=== PATIENT | female | born 1960 | race Caucasian/White ===

== ENCOUNTER 2020-10-29 11:02 | Outpatient (REF) | payer OTHER, SELFPAY ==
[2020-10-29 14:05] LABS: MANUAL DIFF FLAG NO
[2020-10-29 14:18] LABS: Basophils Percent Auto 0.4 % (0-2); Eosinophils Absolute Auto 0.1 X10*3/uL (0.0-0.4); Eosinophils Percent Auto 1.1 % (0-4); Hematocrit 34.8 % (37-47); Hemoglobin 11.9 g/dl (12.0-16.0); Imm Gran Abs Auto 0.01 X10*3/uL (0.00-0.03); Imm Gran Pct Auto 0.2 % (0.0-0.4); Lymphocytes Absolute Auto 2.8 X10*3/uL (1.2-4.9); Mean Corpuscular HGB Conc 34.2 g/dl (31.0-35.0); Mean Corpuscular Hemoglobin 37.4 pg (27.0-33.0); Mean Corpuscular Volume 109.4 fL (80-98); Mean Platelet Volume 11.6 fL (9.4-12.3); Monocytes Absolute Auto 0.6 X10*3/uL (0.1-1.2); Monocytes Percent Auto 11.3 % (2-11); NRBC Pct Auto 0.4 /100WBC (0.0-0.2); Neutrophils Absolute Auto 2.1 X10*3/uL (2.0-8.3); Platelet Count 265 X10*3/uL (160-400); Red Blood Count 3.18 X10*6/uL (4.20-5.50); Red Cell Distribution Width 12.3 % (11.0-16.0); White Blood Count 5.6 X10*3/uL (4.8-10.8)
[2020-10-29 14:21] LABS: INTERNATIONAL NORM RATIO 1.1 (0.9-1.1); Prothrombin Time 13.6 SEC (10.8-13.0)
[2020-10-29 14:44] LABS: Alanine Aminotransferase 15 U/L (0-31); Alkaline Phosphatase 40 U/L (39-117); Aspartate Amino Transferase 32 U/L (5-31); Bilirubin Direct 0.2 mg/dL (0.0-0.5); Bilirubin Total 0.5 mg/dL (0.0-1.0); C Reactive Protein 0.14 mg/dL (< or = 0.50); Iron 67 mcg/dL (30-160); Percent Iron Saturation 20 % (15-50); Total Iron Binding Capacity 336 mcg/dL (228-428); Total Protein 6.5 g/dL (6.5-8.0); Unsaturated Iron Binding 269 ug/dL
[2020-10-29 15:06] LABS: Erythrocyte Sedimentation Rate 2 MM/HR (0-20)
[2020-10-29 15:08] LABS: Ferritin 287 ng/mL (10-250); TSH reflex Free T4 0.33 mIU/mL (0.32-4.0)
[2020-10-29 15:25] LABS: Folate > 20.0 ng/mL (> or = 4.0); Vitamin B12 < 146 pg/mL (200-900)
== END 2020-10-29 11:03 | disposition home or self-care (01) ==
LOC: HO.10HDL 11:02
PROVIDERS: Visit Provider Internal Medicine
DX: R19.7 Diarrhea, unspecified (principal); R63.4 Abnormal weight loss; A04.72 Enterocolitis due to Clostridium difficile, not specified as recurrent
CPT/HCPCS: 36415; 80076; 82607; 82728; 82746; 83540; 84443; 85025; 85610; 85652; 86140

== ENCOUNTER 2020-10-30 13:14 | Outpatient (REF) | payer OTHER, SELFPAY ==
[2020-10-30 14:59] LABS: CDIFF Ag Negative (Negative); CDIFF Internal ctrl Dots and bkg OK (V); CDiff Toxin Negative (Negative)
[2020-10-30 15:15] LABS: Leukocytes Stool Qualitative NEGATIVE (NEGATIVE)
== END 2020-10-30 13:15 | disposition home or self-care (01) ==
LOC: HO.LNP 13:14
PROVIDERS: Visit Provider Internal Medicine
DX: R19.7 Diarrhea, unspecified (principal); R63.4 Abnormal weight loss; A04.72 Enterocolitis due to Clostridium difficile, not specified as recurrent
CPT/HCPCS: 87324; 87449; 89055

== ENCOUNTER 2020-12-21 21:22 | Emergency (ER) | payer OTHER, SELFPAY | END 2020-12-21 21:48 | disposition left against medical advice (07) | PROVIDERS: Emergency Provider Emergency Medicine Emergency Medical Services; PCP Internal Medicine | DX: R51.9 Headache, unspecified (principal) ==

== ENCOUNTER 2021-02-17 07:41 | Day surgery (SDC) | payer OTHER, SELFPAY ==
[2020-11-12 14:23] VITALS: BMI 21.9
--- NOTE | 2020-11-13 14:08 | HO.ANESPROP2 ---
HPI - Anesthesia Eval Consult details Narrative: 60yo F for Upper Endoscopy and Colonoscopy Rescheduled d/t Echo and Carotid US pending. R/O residual PE. [facility] Past Medical History Medical History (Updated 11/12/20 @ 14:49 by Asia Lucas) Achalasia, esophageal Anxiety CAD (coronary artery disease) Depression Elevated cholesterol Hx of Hodgkin's disease Hx of non-ST elevation myocardial infarction (NSTEMI) Hx of opioid abuse Hx pulmonary embolism Hypothyroid IBS (irritable bowel syndrome) Low vitamin B12 level Surgical History Surgical History (Updated 11/12/20 @ 14:34 by Asia Lucas) History of arthroplasty of left hip History of esophagogastroduodenoscopy (EGD) Hx of cardiac catheterization Hx of foot surgery Hx of hemorrhoidectomy Hx of splenectomy Hx of umbilical hernia repair Social History Social History (Updated 11/12/20 @ 14:23 by Asia Lucas) Alcohol intake: current Alcohol intake frequency: 0-2 drinks per day Smoking Status: Current every day smoker Cigarettes Per Day: 5 Years Smoked: 40 Substance Use Type: Opiates Last Used Substance Other:: 2018 Meds Allergies Allergy/AdvReac Type Severity Reaction Status Date / Time bee stings Allergy Severe anaphylaxis Uncoded 11/12/20 13:55 nickel Allergy Intermediate rash Uncoded 11/12/20 13:56 Shellfish Allergy Intermediate HIVES Uncoded 11/12/20 13:55 Home Medications Medication Instructions Recorded Confirmed Type aspirin [Aspir-81] 81 mg PO DAILY 11/12/20 11/12/20 History cholecalciferol (vitamin D3) 25 mcg PO DAILY 11/12/20 11/12/20 History [Vitamin D3] fenofibrate 1 tab PO DAILY 11/12/20 11/12/20 History folic acid 0.8 mg PO DAILY 11/12/20 11/12/20 History melatonin 10 mg PO BEDTIME 11/12/20 11/12/20 History sertraline 50 mg PO DAILY 11/12/20 11/12/20 History levothyroxine [Tirosint] 1 cap PO QAM 11/13/20 11/13/20 History Exam Exam Date and Time: November 13, 2020 1408 Height,Weight and Vital Signs: Height 5 ft 2 in Weight 54.431 kg Narrative Narrative: Per cardiology: followed for atypical CP. 3 stress echo's all normal, Echos also normal with nml LVEF, no WMA, no valve abn (last March 2016); Cardiac cath 2010 that demonstrated mild diffuse disease but all <30% stenosis.
--- NOTE | 2020-12-06 13:59 | P.CONAN_ITS ---
HPI - Anesthesia Eval Consult details Narrative: 60yo F for Upper Endoscopy and Colonoscopy Cardiac cleared Case reviewed with Dr Owen. Cardiac clearance requested prior to elective endo procedure. [facility] Past Medical History Medical History (Updated 12/05/20 @ 15:39 by Asia Lucas) Achalasia, esophageal Anxiety CAD (coronary artery disease) Depression Elevated cholesterol Hx of Hodgkin's disease Hx of non-ST elevation myocardial infarction (NSTEMI) Hx of opioid abuse Hx pulmonary embolism Hypothyroid IBS (irritable bowel syndrome) Low vitamin B12 level Surgical History Surgical History (Updated 11/12/20 @ 14:34 by Asia Lucas) History of arthroplasty of left hip History of esophagogastroduodenoscopy (EGD) Hx of cardiac catheterization Hx of foot surgery Hx of hemorrhoidectomy Hx of splenectomy Hx of umbilical hernia repair Social History Social History (Updated 11/12/20 @ 14:23 by Asia Lucas) Alcohol intake: current Alcohol intake frequency: 0-2 drinks per day Smoking Status: Current every day smoker Cigarettes Per Day: 5 Years Smoked: 40 Substance Use Type: Opiates Last Used Substance Other:: 2018 Meds Allergies Allergy/AdvReac Type Severity Reaction Status Date / Time bee stings Allergy Severe anaphylaxis Uncoded 11/12/20 13:55 nickel Allergy Intermediate rash Uncoded 11/12/20 13:56 Shellfish Allergy Intermediate HIVES Uncoded 11/12/20 13:55 Home Medications Medication Instructions Recorded Confirmed Type aspirin [Aspir-81] 81 mg PO DAILY 11/12/20 11/12/20 History cholecalciferol (vitamin D3) 25 mcg PO DAILY 11/12/20 11/12/20 History [Vitamin D3] folic acid 0.8 mg PO DAILY 11/12/20 11/12/20 History melatonin 10 mg PO BEDTIME 11/12/20 11/12/20 History sertraline 50 mg PO DAILY 11/12/20 11/12/20 History levothyroxine [Tirosint] 1 cap PO QAM 11/13/20 11/13/20 History Exam Exam Date and Time: December 06, 2020 1359 Height,Weight and Vital Signs: Height 5 ft 2 in Weight 54.431 kg Pertinent Lab Results Pertinent Lab Results: Laboratory Tests 07/18/20 10/29/20 13:17 10:50 WBC 5.6 Hgb 11.9 L Hct 34.8 L Plt Count 265 Sodium 141 Potassium 3.7 Chloride 105 BUN 8 L Creatinine 0.75 Narrative Narrative: ECHO 12/05/2020: SR LV size is normal. LV wall thickness is normal. Overall LV sys function is low- normal with EF 45-55%; Gr 1 DD; Impaired relax; nml filling pressures; Mid to basal inferolateral mildly hypokinetic suspected LA size is normal RV sys functino is normal Trace AR Trace MR Trace TR RV sys pressure nml No pericardial effusion Aortic root is normal in size Lipomatous hypertrophy of the interatrial septum is present No significant change from 2016 ECHO EKG 09/2020: SR@80 slight right-precordial repol disturbance, normal variant Assessment and Plan Assessment Anesthesia Assessment: Chart Reviewed
--- NOTE | 2021-01-02 13:10 | HO.ANESPROP2 ---
HPI - Anesthesia Eval Consult details Narrative: 60yo F for Upper Endoscopy and Colonoscopy Case reviewed with Dr Owen. Cardiac clearance requested prior to elective endo procedure. Cardiac cleared. Referred for ?occluded carotid stent. Pt no-showed to Dr Duong at [facility] 12/30/20. Discharged from practice for no show. T/C to Dr Hughes - PCP. = 01/03/[address] Hughes. OK to proceed with colonoscopy. Referral for carotid was to re-establish care. No acute issue. Pt cancelled self. [facility] Past Medical History Medical History (Updated 12/05/20 @ 15:39 by Asia Lucas) Achalasia, esophageal Anxiety CAD (coronary artery disease) Depression Elevated cholesterol Hx of Hodgkin's disease Hx of non-ST elevation myocardial infarction (NSTEMI) Hx of opioid abuse Hx pulmonary embolism Hypothyroid IBS (irritable bowel syndrome) Low vitamin B12 level Surgical History Surgical History (Updated 11/12/20 @ 14:34 by Asia Lucas) History of arthroplasty of left hip History of esophagogastroduodenoscopy (EGD) Hx of cardiac catheterization Hx of foot surgery Hx of hemorrhoidectomy Hx of splenectomy Hx of umbilical hernia repair Social History Social History (Updated 11/12/20 @ 14:23 by Asia Lucas) Alcohol intake: current Alcohol intake frequency: 0-2 drinks per day Smoking Status: Current every day smoker Cigarettes Per Day: 5 Years Smoked: 40 Substance Use Type: Opiates Advance Directives: No Advance Directives Information Provided: No Meds Allergies Allergy/AdvReac Type Severity Reaction Status Date / Time bee stings Allergy Severe anaphylaxis Uncoded 11/12/20 13:55 nickel Allergy Intermediate rash Uncoded 11/12/20 13:56 Shellfish Allergy Intermediate HIVES Uncoded 11/12/20 13:55 Home Medications Medication Instructions Recorded Confirmed Type aspirin [Aspir-81] 81 mg PO DAILY 11/12/20 11/12/20 History cholecalciferol (vitamin D3) 25 mcg PO DAILY 11/12/20 11/12/20 History [Vitamin D3] folic acid 0.8 mg PO DAILY 11/12/20 11/12/20 History melatonin 10 mg PO BEDTIME 11/12/20 11/12/20 History sertraline 50 mg PO DAILY 11/12/20 11/12/20 History levothyroxine [Tirosint] 1 cap PO QAM 11/13/20 11/13/20 History Exam Exam Date and Time: January 02, 2021 1310 Height,Weight and Vital Signs: Height 5 ft 2 in Weight 54.431 kg Narrative Narrative: ECHO 12/05/2020: SR LV size is normal. LV wall thickness is normal. Overall LV sys function is low-normal with EF 45-55%; Gr 1 DD; Impaired relax; nml filling pressures; Mid to basal inferolateral mildly hypokinetic suspected LA size is normal RV sys functino is normal Trace AR Trace MR Trace TR RV sys pressure nml No pericardial effusion Aortic root is normal in size Lipomatous hypertrophy of the interatrial septum is present No significant change from 2016 ECHO EKG 09/2020: SR@80 slight right-precordial repol disturbance, normal variant
[2021-02-10 12:20] VITALS: BMI 21.0
--- NOTE | 2021-02-14 07:08 | HO.ANESPROP2 ---
Documented by User: Berenice Melgar 02/14/21 07:09 HPI - Anesthesia Eval Consult details Narrative: 60yo F for Upper Endoscopy and Colonoscopy Case reviewed with Dr Owen. Cardiac clearance requested prior to elective endo procedure. Cardiac cleared. Referred for ?occluded carotid stent. Pt no-showed to Dr Duong at [facility] 12/30/20. Discharged from practice for no show. T/C to Dr Hughes - PCP. = 01/03/[address] Hughes. OK to proceed with colonoscopy. Referral for carotid was to re-establish care. No acute issue. Pt cancelled self multiple times previously [facility] Past Medical History Medical History Achalasia, esophageal Anxiety CAD (coronary artery disease) Depression Elevated cholesterol Hx of Hodgkin's disease Hx of non-ST elevation myocardial infarction (NSTEMI) Hx of opioid abuse Hx pulmonary embolism Hypothyroid IBS (irritable bowel syndrome) Low vitamin B12 level Surgical History Surgical History History of arthroplasty of left hip History of esophagogastroduodenoscopy (EGD) Hx of cardiac catheterization Hx of foot surgery Hx of hemorrhoidectomy Hx of splenectomy Hx of umbilical hernia repair Social History Social History Alcohol intake: current Alcohol intake frequency: a few times a month Smoking Status: Current every day smoker Cigarettes Per Day: 5 Years Smoked: 40 Substance Use Type: Opiates Substance Use Type Other:: 6 months ago Advance Directives: No Advance Directives Information Provided: No Advance Directives on File: No Meds Allergies Allergy/AdvReac Type Severity Reaction Status Date / Time bee stings Allergy Severe anaphylaxis Uncoded 02/10/21 12:17 nickel Allergy Intermediate rash Uncoded 02/10/21 12:17 Shellfish Allergy Intermediate HIVES Uncoded 02/10/21 12:17 Home Medications Medication Instructions Recorded Confirmed Last Taken Type aspirin [Aspir-81] 81 mg PO DAILY 11/12/20 11/12/20 02/12/21 History cholecalciferol (vitamin D3) 25 mcg PO DAILY 11/12/20 02/10/21 Unknown History [Vitamin D3] folic acid 0.8 mg PO DAILY 11/12/20 02/10/21 Unknown History melatonin 10 mg PO BEDTIME 11/12/20 02/10/21 Unknown History sertraline 50 mg PO DAILY 11/12/20 11/12/20 Unknown History levothyroxine [Tirosint] 1 cap PO QAM 11/13/20 02/10/21 Unknown History Exam Exam Date and Time: February 14, 2021 0708 Height,Weight and Vital Signs: Height 5 ft 2 in Weight 52.163 kg Pertinent Lab Results Pertinent Lab Results: Laboratory Tests 07/18/20 10/29/20 13:17 10:50 WBC 5.6 Hgb 11.9 L Hct 34.8 L Plt Count 265 Sodium 141 Potassium 3.7 Chloride 105 BUN 8 L Creatinine 0.75 Narrative Narrative: ECHO 12/05/2020: SR LV size is normal. LV wall thickness is normal. Overall LV sys function is low-normal with EF 45-55%; Gr 1 DD; Impaired relax; nml filling pressures; Mid to basal inferolateral mildly hypokinetic suspected LA size is normal RV sys functino is normal Trace AR Trace MR Trace TR RV sys pressure nml No pericardial effusion Aortic root is normal in size Lipomatous hypertrophy of the interatrial septum is present No significant change from 2016 ECHO EKG 09/2020: SR@80 slight right-precordial repol disturbance, normal variant Assessment and Plan Assessment Anesthesia Assessment: Chart Reviewed Documented by User: Nathalia Kelsey 02/17/21 09:20 [facility] Past Medical History Medical History Achalasia, esophageal Anxiety CAD (coronary artery disease) Depression Elevated cholesterol Hx of Hodgkin's disease Hx of non-ST elevation myocardial infarction (NSTEMI) Hx of opioid abuse Hx pulmonary embolism Hypothyroid IBS (irritable bowel syndrome) Low vitamin B12 level Surgical History Surgical History History of arthroplasty of left hip History of esophagogastroduodenoscopy (EGD) Hx of cardiac catheterization Hx of foot surgery Hx of hemorrhoidectomy Hx of splenectomy Hx of umbilical hernia repair Social History Social History Alcohol intake: current Alcohol intake frequency: a few times a month Smoking Status: Current every day smoker Cigarettes Per Day: 5 Years Smoked: 40 Substance Use Type: Opiates Substance Use Type Other:: 6 months ago Advance Directives: No Advance Directives Information Provided: No Advance Directives on File: No Meds Allergies Allergy/AdvReac Type Severity Reaction Status Date / Time bee stings Allergy Severe anaphylaxis Uncoded 02/10/21 12:17 nickel Allergy Intermediate rash Uncoded 02/10/21 12:17 Shellfish Allergy Intermediate HIVES Uncoded 02/10/21 12:17 Home Medications Medication Instructions Recorded Confirmed Last Taken Type aspirin [Aspir-81] 81 mg PO DAILY 11/12/20 11/12/20 02/12/21 History cholecalciferol (vitamin D3) 25 mcg PO DAILY 11/12/20 02/10/21 Unknown History [Vitamin D3] folic acid 0.8 mg PO DAILY 11/12/20 02/10/21 Unknown History melatonin 10 mg PO BEDTIME 11/12/20 02/10/21 Unknown History sertraline 50 mg PO DAILY 11/12/20 11/12/20 Unknown History levothyroxine [Tirosint] 1 cap PO QAM 11/13/20 02/10/21 Unknown History Exam Airway Mallampati Class: II TM Dist: >3cm Neck ROM: Full Heart: RRR Lungs: CTA Assessment and Plan Assessment Anesthesia Assessment: Anesthesia Plan Discussed and Chart Reviewed Final Anesthetic Review NPO: Yes ASA Class: III Final Preanesthetic Review: Meds/Allgs Chart Reviewed, Consent Obtained/Reviewed and Anes Risks/Benef Reviewed Patient Risk: Intermediate Procedure Risk: Intermediate Anesthetic Plan Anesthetic Plan: MAC: Disposition: Standard PACU
[2021-02-17 08:27] VITALS: BP 143/75; PULSE 84; RESP 16; TEMP 36.3; O2SAT 95
[2021-02-17] MEDS: Lactated Ringers 1,000 ML 100 ML IVCONT (08:37)
[2021-02-17 10:52] VITALS: BP 119/57; PULSE 72; RESP 12; TEMP 36.4; O2SAT 100
--- NOTE | 2021-02-17 10:57 | PM.OP ---
Brief Operative Note Date of Service: 02/17/21 Pre-op diagnosis: Diarrhea, Anorexia, Weight loss Post-op diagnosis: other (Hiatal hernia, R/O celiac disease, R/O microscopic colitis) Procedure: EGD with biopsies, Colonoscopy to the cecum with biopsies Surgeon: Guido Cain Anesthesia: MAC Estimated blood loss (mL): 5.0 Pathology: other (A. Descending duodenum B. Gastric antrum C. EG Junction at 36cm D. Ascending colon E. Descending colon) Condition: stable Disposition: other
[2021-02-17 11:07] VITALS: BP 133/66; PULSE 71; RESP 20; TEMP 36.4; O2SAT 98
--- NOTE | 2021-02-17 11:28 | OP_ITS ---
SURGEON: Guido Cain MD INDICATIONS: The patient presents for evaluation of diarrhea, anorexia, and weight loss. Full consent has been obtained from her for both procedures, including risks of bleeding and perforation. PREOPERATIVE DIAGNOSIS: POSTOPERATIVE DIAGNOSIS: PROCEDURE PERFORMED: Esophagogastroduodenoscopy with biopsies, and colonoscopy to cecum with biopsies. ESTIMATED BLOOD LOSS: COMPLICATIONS: ANESTHESIA: Monitored anesthesia care. ASSISTANTS: SPECIMENS: PREOPERATIVE DIAGNOSES: Anorexia, diarrhea, and weight loss. POSTOPERATIVE DIAGNOSES: Anorexia, diarrhea, and weight loss, rule out celiac disease, gastritis, hiatal hernia, rule out microscopic colitis, diverticulosis, and internal hemorrhoids. DESCRIPTION OF PROCEDURE: The patient was placed in the left lateral decubitus position. The Olympus video gastroscope was passed in the posterior oropharynx and upper esophagus under direct vision. The scope was passed slowly into the distal esophagus. The gastroesophageal junction appeared at 36 cm. There was some minimal irregularity, but no evidence of any esophagitis nor any definitive evidence of Carney's mucosa. The scope entered into the stomach. There was a small hiatal hernia. The scope was advanced to pylorus and the duodenum was cannulated to the descending portion. The duodenum including the bulb appeared normal without mass or ulceration. Biopsies were obtained from the second and third portions of duodenum. The scope was withdrawn back into the stomach. The gastric antrum had some mild areas of erythema and edema, but no erosions or ulceration. There was good peristalsis. Biopsies were obtained from the gastric antrum. The scope was retroflexed visualizing the proximal stomach carefully, which appeared normal, without any sign of mass or ulceration. Scope was straightened out and withdrawn back into the esophagus. Biopsies were obtained at the EG junction at 36 cm. Proximal to this, the esophageal mucosa appeared normal. The scope was withdrawn from the patient. She was turned around for colonoscopy. The digital rectal exam revealed no abnormalities. The Olympus video pediatric colonoscope was entered into the rectum and advanced easily to the cecum. Once in the cecum, I did identify normal-appearing cecal pouch with appendiceal orifice and a normal-appearing ileocecal valve. The entire cecum appeared normal. There was transillumination of light deep in the right lower quadrant. The scope was then slowly withdrawn assessing all mucosal surfaces carefully. Preparation was excellent. I did not visualize any sign of polyps, colitis, nor angiodysplasia. Random biopsies were obtained in the ascending and descending colon. There was a mild amount of sigmoid diverticulosis. In the rectum, scope was retroflexed visualizing small internal hemorrhoids, but no other pathology. The rectal mucosa appeared normal. The scope was straightened out and withdrawn from the patient. She tolerated both procedures well and was returned to recovery area in stable condition. IMPRESSION: 1. Hiatal hernia. 2. Gastritis. 3. Rule out celiac disease. 4. Rule out microscopic colitis. 5. Diverticulosis. 6. Internal hemorrhoids. PLAN: The results of the biopsies will be checked. She was advised to resume her Xarelto and aspirin tomorrow. She will continue her Imodium on a p.r.n. basis. I do feel part of her GI issues could be in relation to her alcohol use. She was advised to see me again within 2 months for a followup visit. She will continue her with her B12 shots for the previously documented B12 deficiency. MD JOURDAN Farley/NASIMA / [phone]
== END 2021-02-17 11:46 | disposition home or self-care (01) ==
PROVIDERS: PCP Internal Medicine; Visit Provider Internal Medicine
PROC: (CPT 45380; principal; 2021-02-17 09:10)
DX: R19.7 Diarrhea, unspecified (principal); K57.30 Diverticulosis of large intestine without perforation or abscess without bleeding; K64.8 Other hemorrhoids; K58.9 Irritable bowel syndrome, unspecified; R63.4 Abnormal weight loss; K29.50 Unspecified chronic gastritis without bleeding; K44.9 Diaphragmatic hernia without obstruction or gangrene; K22.0 Achalasia of cardia; E53.8 Deficiency of other specified B group vitamins; I25.2 Old myocardial infarction; F11.20 Opioid dependence, uncomplicated; F32.9 Major depressive disorder, single episode, unspecified; F17.210 Nicotine dependence, cigarettes, uncomplicated; Z79.02 Long term (current) use of antithrombotics/antiplatelets; Z79.82 Long term (current) use of aspirin; Z79.899 Other long term (current) drug therapy; Z86.711 Personal history of pulmonary embolism
CPT/HCPCS: 45380; 43239; 88305; 88342; J2250

== ENCOUNTER 2021-03-12 14:08 | Outpatient (REF) | payer OTHER, SELFPAY ==
[2021-03-12 14:42] LABS: MANUAL DIFF FLAG NO
[2021-03-12 14:46] LABS: Basophils Percent Auto 0.6 % (0-2); Eosinophils Absolute Auto 0.1 X10*3/uL (0.0-0.4); Eosinophils Percent Auto 1.2 % (0-4); Hematocrit 35.7 % (37-47); Imm Gran Abs Auto 0.03 X10*3/uL (0.00-0.03); Imm Gran Pct Auto 0.6 % (0.0-0.4); Lymphocytes Absolute Auto 2.3 X10*3/uL (1.2-4.9); Lymphocytes Percent Auto 45.2 % (20-40); Mean Corpuscular HGB Conc 33.6 g/dl (31.0-35.0); Mean Corpuscular Hemoglobin 36.8 pg (27.0-33.0); Mean Corpuscular Volume 109.5 fL (80-98); Monocytes Absolute Auto 0.7 X10*3/uL (0.1-1.2); Monocytes Percent Auto 12.8 % (2-11); Neutrophils Percent Auto 39.6 % (45-73); Platelet Count 302 X10*3/uL (160-400); Red Blood Count 3.26 X10*6/uL (4.20-5.50); White Blood Count 5.1 X10*3/uL (4.8-10.8)
[2021-03-12 15:03] LABS: Alanine Aminotransferase 47 U/L (0-31); Albumin Level 4.4 g/dL (3.5-5.0); Alkaline Phosphatase 62 U/L (39-117); Anion Gap 15 (12-20); Aspartate Amino Transferase 44 U/L (5-31); Bilirubin Direct 0.2 mg/dL (0.0-0.5); Bilirubin Total 0.5 mg/dL (0.0-1.0); Blood Urea Nitrogen 13 mg/dL (9-16); Calcium 9.2 mg/dL (8.4-10.2); Carbon Dioxide 25 mmol/L (22-29); Chloride 106 mmol/L (96-108); Estimated Glomerular Filt Rate > 60; Glucose Random 87 mg/dL (60-115); Potassium 4.2 mmol/L (3.3-5.1); Sodium 142 mmol/L (135-145)
[2021-03-13 11:32] LABS: Immunoglobulin A 181 mg/dL (47-310)
[2021-03-13 13:12] LABS: Transglutaminase Ab IgG 1 U/mL; Transglutaminase IgA 1 U/mL
[2021-03-14 00:21] LABS: Gliadin Deamidated IgA Ab 3 Units; Gliadin Deamidated IgG Ab 1 Units
[2021-03-18 13:22] LABS: Endomysial IgA Antibody Negative (Negative)
== END 2021-03-12 14:09 | disposition home or self-care (01) ==
LOC: HO.LAB 14:08
PROVIDERS: PCP Internal Medicine; Visit Provider Internal Medicine
DX: R19.7 Diarrhea, unspecified (principal); R63.4 Abnormal weight loss
CPT/HCPCS: 36415; 80053; 80076; 82248; 82784; 83516; 85025; 86255; 86256

== ENCOUNTER 2021-11-10 14:42 | Outpatient (REF) | payer OTHER, SELFPAY ==
[2021-11-10 15:35] LABS: COVID-19 Test Negative (Negative); IDNOW Serial# 16C4AD1C
== END 2021-11-10 14:43 | disposition home or self-care (01) ==
LOC: HO.LAB 14:42
PROVIDERS: Visit Provider Internal Medicine
DX: Z20.822 Contact with and (suspected) exposure to COVID-19 (principal)
CPT/HCPCS: 36415; 87635; C9803

== ENCOUNTER 2021-12-04 19:09 | Inpatient (IN) | payer OTHER, SELFPAY ==
--- NOTE | 2021-12-04 | ECG_ITS ---
Test Reason : TACHY Blood Pressure : / mmHG Vent. Rate : 204 BPM Atrial Rate : 000 BPM P-R Int : 000 ms QRS Dur : 082 ms QT Int : 216 ms P-R-T Axes : 000 057 259 degrees QTc Int : 398 ms Supraventricular tachycardia Possible Anterior infarct , age undetermined ST & T wave abnormality, consider inferior ischemia Abnormal ECG When compared with ECG of 30-MAR-2018 11:58, Supraventricular tachycardia has replaced Normal sinus rhythm Referred By: Generic ED Physician Electronically Signed By:KYM MEDINA MD
--- NOTE | ~2021-12-04 | US_ITS ---
EXAMINATION: US ABDOMEN LIMITED CLINICAL INFORMATION: Transaminitis. COMPARISON: CT abdomen and pelvis 07/19/2020. MRI abdomen 07/18/2018. Ultrasound abdomen complete 06/21/2018. TECHNIQUE: Real-time imaging of the right upper quadrant abdominal viscera. FINDINGS: PANCREAS: The pancreatic head and body appear normal. The tail is obscured by bowel gas. LIVER: The liver is normal in size. The liver contour is normal. Increased hepatic echogenicity is nonspecific. No focal hepatic lesion. There is no intrahepatic biliary duct dilatation seen. GALLBLADDER: Normal. The gallbladder is physiologically distended without evidence of stones, sludge, polyps, wall thickening or pericholecystic fluid. COMMON BILE DUCT: Normal in caliber measuring 0.2 cm in diameter. RIGHT KIDNEY: Normal. No hydronephrosis. No renal calculi or focal parenchymal lesions. The kidney measures 11.7 cm in maximum dimension. FREE FLUID: None. US/US abdomen limited IMPRESSION: Increased hepatic echogenicity is nonspecific but most likely fatty infiltration. No discrete mass or biliary ductal dilatation.
--- NOTE | ~2021-12-04 | XR_ITS ---
EXAMINATION: PORTABLE CHEST 1 VIEW CLINICAL INFORMATION: cp . COMPARISON: 03/17/2018. TECHNIQUE: Portable frontal view of the chest was obtained. FINDINGS: The lungs are well expanded. No focal infiltrate, effusion, edema, or pneumothorax. Cardiac and mediastinal silhouettes are within normal limits for technique. No acute bony abnormality seen. XR/XR chest 1V IMPRESSION: No evidence of acute disease.
[2021-12-04 19:31] VITALS: BP 111/71; PULSE 204; RESP 20; TEMP 36.7; O2SAT 96; BMI 20.3
--- NOTE | 2021-12-04 19:52 | ED_ITS ---
HPI - Arrhythmia/Palpitations General Chief Complaint: Chest Pain Stated Complaint: hip bp, dizziness Time Seen by Provider: 12/04/21 19:37 Source: patient Mode of arrival: ambulatory Limitations: no limitations History of Present Illness HPI narrative: Patient is 61 years old with history of alcohol abuse drinks al cohol every day no history of palpitation the past noticed heart beating fast with dizziness since 15:00 felt like she was going to pass out never had similar history in the past on arrival patient heart rate was 204 beats per minute no fever no chills patient had an alcoholic drink earlier today Related Data Home Medications Medication Instructions Recorded Confirmed aspirin 81 mg tablet,delayed 81 mg PO DAILY 11/12/20 11/12/20 release cholecalciferol (vitamin D3) 25 25 mcg PO DAILY 11/12/20 02/10/21 mcg (1,000 unit) capsule (Vitamin D3) folic acid 0.8 mg capsule 0.8 mg PO DAILY 11/12/20 02/10/21 melatonin 5 mg tablet 10 mg PO BEDTIME 11/12/20 02/10/21 Previous Rx's Medication Instructions Recorded fenofibrate 160 mg tablet 160 mg PO DAILY #30 tab 11/23/20 enoxaparin 60 mg/0.6 mL 60 mg (0.6 mL) SUBCUT Q12H 7 Days 12/09/20 subcutaneous syringe (Lovenox) #8.4 ml bupropion HCl 150 mg 24 hr tablet, 150 mg PO QAM #90 tab 04/24/21 extended release rivaroxaban 20 mg tablet (Xarelto) 20 mg PO QPM #30 tab 04/27/21 sertraline 50 mg tablet 50 mg PO DAILY #30 tab 09/03/21 levothyroxine 75 mcg capsule 75 mcg PO QAM 30 Days #30 cap 11/11/21 (Tirosint) trazodone 100 mg tablet 100 - 200 mg PO BEDTIME #60 tab 11/11/21 magnesium oxide 400 mg PO DAILY #30 tab 12/04/21 Allergies Allergy/AdvReac Type Severity Reaction Status Date / Time bee stings Allergy Severe anaphylaxis Uncoded 12/04/21 19:26 nickel Allergy Intermediate rash Uncoded 12/04/21 19:26 Shellfish Allergy Intermediate HIVES Uncoded 12/04/21 19:26 Review of Systems Review of Systems: Yes all other systems are reviewed and are negative PMFSH Past Medical History Medical History Achalasia, esophageal Anxiety CAD (coronary artery disease) Depression Elevated cholesterol Hx of Hodgkin's disease Hx of non-ST elevation myocardial infarction (NSTEMI) Hx of opioid abuse Hx pulmonary embolism Hypothyroid IBS (irritable bowel syndrome) Low vitamin B12 level Surgical History History of arthroplasty of left hip History of esophagogastroduodenoscopy (EGD) Hx of cardiac catheterization Hx of foot surgery Hx of hemorrhoidectomy Hx of splenectomy Hx of umbilical hernia repair Social History Social History Alcohol intake: current Alcohol intake frequency: a few times a month Cigarettes Per Day: 5 Years Smoked: 40 Substance Use Type: Opiates Advance Directives: No Advance Directives Information Provided: Yes Patient : No Physical Exam Vital Signs: Vital Signs: Last Vital Signs Temp 98.1 F 12/04/21 19:31 Pulse 86 12/04/21 21:50 Resp 12 12/04/21 21:50 BP 130/80 12/04/21 21:50 Pulse Ox 97 12/04/21 21:50 BMI result Body Mass Index 20.3 Appearance: Alert. Oriented X3. Mild distress etoh+ Eyes: No pallor icterus ENT: Pharynx normal. Oral Mucosa moist Neck: Normal inspection. Neck supple. CVS: Tachycardia with heart rate 200 beats per minute no murmur gallop Pulses normal. Respiratory: No respiratory distress. Equal air entry bilateral, no wheezing/rales/rhonchi Abdomen: Soft and nontender. Bowel sounds are present, no mass palpable, Skin: Skin warm and dry. Normal skin color. Normal skin turgor. Extremities: No lower extremity edema. No calf tenderness Neuro: Oriented X 3. No motor deficit. No sensory deficit.No cerebellar signs , cranial nerves II-XII intact Course Reevaluation(s) Reevaluation #1: Patient received 6 mg of Adenocard which broke her SVT normal sinus rhythm at this time patient feeling much better will check her labs including TSH magnesium and alcohol level likely she has alcoholic cardiomyopathy Time: 19:45 MDM - Arrhythmia/Palpitations MDM Narrative Medical decision making narrative: Patient with SVT with alcohol abuse likely has dilated cardiomyopathy as a cause for SVT responded to Adenocard. Patient has low magnesium 1.5 will give magnesium replacement slightly elevated troponin from increased demand because of tachycardia will repeat troponin planning to discharge pt home advised not to drink alcohol will sign out to Dr. Willoughby will recheck delta troponin Lab Data Attestation: I reviewed the patient's lab results. Result diagrams: 12/04/21 19:52 12/04/21 19:52 Labs: Lab Results 12/04/21 12/04/21 12/04/21 Range/Units 19:52 19:52 19:52 WBC 9.7 (4.8-10.8) X10*3/uL RBC 3.57 L (4.20-5.50) X10*6/uL Hgb 14.0 (12.0-16.0) g/dl Hct 39.4 (37.0-47.0) % MCV 110.4 H (80.0-98.0) fL MCH 39.2 H (27.0-33.0) pg MCHC 35.5 H (31.0-35.0) g/dl RDW 14.6 (11.0-16.0) % Plt Count 237 (160-400) X10*3/uL MPV 10.9 (9.4-12.3) fL Immature Gran % (Auto) 0.5 H (0.0-0.4) % Neut % (Auto) 53.5 (45-73) % Lymph % (Auto) 29.4 (20-40) % [place] % (Auto) 16.1 H (2-11) % Eos % (Auto) 0.2 (0-4) % Baso % (Auto) 0.3 (0-2) % Lymph # (Auto) 2.9 (1.2-4.9) X10*3/uL [place] # (Auto) 1.6 H (0.1-1.2) X10*3/uL Eos # (Auto) 0.0 (0.0-0.4) X10*3/uL Baso # (Auto) 0.0 (0.0-0.2) X10*3/uL Abs Immat Gran (auto) 0.05 H (0.00-0.03) X10*3/uL Absolute Neuts (auto) 5.2 (2.0-8.3) x10*3/uL Absolute Nucleated RBC 0.060 H (0.0-0.012) X10*3/uL Nucleated RBC % (auto) 0.6 H (0.0-0.2) /100WBC Smear Tech's Comments VERIFIED PT 9.4 L (9.9-13.0) SEC INR 0.8 L (0.9-1.1) APTT 32.7 (24.1-38.0) SEC Sodium 141 (135-145) mmol/L Potassium 4.3 (3.3-5.1) mmol/L Chloride 102 (96-108) mmol/L Carbon Dioxide 17 L (22-29) mmol/L Anion Gap 26 H (12-20) BUN 19 H (9-16) mg/dL Creatinine 0.80 (0.5-1.4) mg/dL Estim Creat Clear Calc 61.5 Estimated GFR > 60 Random Glucose 117 H (60-115) mg/dL Calcium 9.2 (8.4-10.2) mg/dL Magnesium (1.6-2.6) mg/dL Total Bilirubin 0.4 (0.0-1.0) mg/dL AST 173 H (5-31) U/L ALT 107 H (0-31) U/L Alkaline Phosphatase 80 D (39-117) U/L Troponin I High Sens (<3.5-17.0) ng/L B-Natriuretic Peptide (<100) pg/mL Total Protein 6.9 (6.5-8.0) g/dL Albumin 4.1 (3.5-5.0) g/dL TSH 2.13 (0.32-4.0) uIU/mL Ethyl Alcohol mg/dL COVID-19 ([facility]) (Negative) COVID-19 Clin Com 12/04/21 12/04/21 12/04/21 Range/Units 19:52 19:52 19:53 WBC (4.8-10.8) X10*3/uL RBC (4.20-5.50) X10*6/uL Hgb (12.0-16.0) g/dl Hct (37.0-47.0) % MCV (80.0-98.0) fL MCH (27.0-33.0) pg MCHC (31.0-35.0) g/dl RDW (11.0-16.0) % Plt Count (160-400) X10*3/uL MPV (9.4-12.3) fL Immature Gran % (Auto) (0.0-0.4) % Neut % (Auto) (45-73) % Lymph % (Auto) (20-40) % [place] % (Auto) (2-11) % Eos % (Auto) (0-4) % Baso % (Auto) (0-2) % Lymph # (Auto) (1.2-4.9) X10*3/uL [place] # (Auto) (0.1-1.2) X10*3/uL Eos # (Auto) (0.0-0.4) X10*3/uL Baso # (Auto) (0.0-0.2) X10*3/uL Abs Immat Gran (auto) (0.00-0.03) X10*3/uL Absolute Neuts (auto) (2.0-8.3) x10*3/uL Absolute Nucleated RBC (0.0-0.012) X10*3/uL Nucleated RBC % (auto) (0.0-0.2) /100WBC Smear Tech's Comments PT (9.9-13.0) SEC INR (0.9-1.1) APTT (24.1-38.0) SEC Sodium (135-145) mmol/L Potassium (3.3-5.1) mmol/L Chloride (96-108) mmol/L Carbon Dioxide (22-29) mmol/L Anion Gap (12-20) BUN (9-16) mg/dL Creatinine (0.5-1.4) mg/dL Estim Creat Clear Calc Estimated GFR Random Glucose (60-115) mg/dL Calcium (8.4-10.2) mg/dL Magnesium 1.5 L (1.6-2.6) mg/dL Total Bilirubin (0.0-1.0) mg/dL AST (5-31) U/L ALT (0-31) U/L Alkaline Phosphatase (39-117) U/L Troponin I High Sens (<3.5-17.0) ng/L B-Natriuretic Peptide 43 (<100) pg/mL Total Protein (6.5-8.0) g/dL Albumin (3.5-5.0) g/dL TSH (0.32-4.0) uIU/mL Ethyl Alcohol mg/dL COVID-19 (T[facility]) Negative (Negative) COVID-19 Clin Com See Note 12/04/21 12/04/21 Range/Units 19:53 19:54 WBC (4.8-10.8) X10*3/uL RBC (4.20-5.50) X10*6/uL Hgb (12.0-16.0) g/dl Hct (37.0-47.0) % MCV (80.0-98.0) fL MCH (27.0-33.0) pg MCHC (31.0-35.0) g/dl RDW (11.0-16.0) % Plt Count (160-400) X10*3/uL MPV (9.4-12.3) fL Immature Gran % (Auto) (0.0-0.4) % Neut % (Auto) (45-73) % Lymph % (Auto) (20-40) % [place] % (Auto) (2-11) % Eos % (Auto) (0-4) % Baso % (Auto) (0-2) % Lymph # (Auto) (1.2-4.9) X10*3/uL [place] # (Auto) (0.1-1.2) X10*3/uL Eos # (Auto) (0.0-0.4) X10*3/uL Baso # (Auto) (0.0-0.2) X10*3/uL Abs Immat Gran (auto) (0.00-0.03) X10*3/uL Absolute Neuts (auto) (2.0-8.3) x10*3/uL Absolute Nucleated RBC (0.0-0.012) X10*3/uL Nucleated RBC % (auto) (0.0-0.2) /100WBC Smear Tech's Comments PT (9.9-13.0) SEC INR (0.9-1.1) APTT (24.1-38.0) SEC Sodium (135-145) mmol/L Potassium (3.3-5.1) mmol/L Chloride (96-108) mmol/L Carbon Dioxide (22-29) mmol/L Anion Gap (12-20) BUN (9-16) mg/dL Creatinine (0.5-1.4) mg/dL Estim Creat Clear Calc Estimated GFR Random Glucose (60-115) mg/dL Calcium (8.4-10.2) mg/dL Magnesium (1.6-2.6) mg/dL Total Bilirubin (0.0-1.0) mg/dL AST (5-31) U/L ALT (0-31) U/L Alkaline Phosphatase (39-117) U/L Troponin I High Sens 57.7 H* (<3.5-17.0) ng/L B-Natriuretic Peptide (<100) pg/mL Total Protein (6.5-8.0) g/dL Albumin (3.5-5.0) g/dL TSH (0.32-4.0) uIU/mL Ethyl Alcohol 72 mg/dL COVID-19 ([facility]) (Negative) COVID-19 Clin Com ECG Data Attestation: I personally reviewed and interpreted this ECG as follows: Interpretation: Narrow complex supraventricular tachycardia with heart rate of 204 beats per minute no acute ischemic changes impression SVT Discharge Plan Discharge Clinical Impression: Paroxysmal SVT (supraventricular tachycardia), Alcohol abuse, Hypomagnesemia Patient Disposition: Home, Self-Care Instructions: Supraventricular Tachycardia (ED), Abuse of Alcohol (ED), Hypomagnesemia (ED) Additional Instructions: stop Alcohol use Follow-up with special service officer for further evaluation Magnesium tablets as advised Prescriptions: New magnesium oxide 400 mg magnesium tablet 400 mg PO DAILY Qty: 30 RF: 0 No Action fenofibrate 160 mg tablet 160 mg PO DAILY Qty: 30 RF: 3 enoxaparin [Lovenox] 60 mg/0.6 mL syringe 60 mg subcut Q12H 7 Days Qty: 8.4 RF: 0 bupropion HCl 150 mg tablet extended release 24 hr 150 mg PO QAM Qty: 90 RF: 0 rivaroxaban [Xarelto] 20 mg tablet 20 mg PO QPM Qty: 30 RF: 0 sertraline 50 mg tablet 50 mg PO DAILY Qty: 30 RF: 2 trazodone 100 mg tablet 100 - 200 mg PO BEDTIME Qty: 60 RF: 0 levothyroxine [Tirosint] 75 mcg capsule 75 mcg PO QAM 30 Days Qty: 30 RF: 3 melatonin 5 mg Tablet 10 mg PO BEDTIME RF: 0 aspirin [Aspir-81] 81 mg Tablet,Delayed Release (Dr/Ec) 81 mg PO DAILY RF: 0 cholecalciferol (vitamin D3) [Vitamin D3] 25 mcg (1,000 unit) Capsule 25 mcg PO DAILY RF: 0 folic acid 0.8 mg Capsule 0.8 mg PO DAILY RF: 0 Referrals: Kishore Garner MD [Physician] - 2 weeks
[2021-12-04 19:59] VITALS: BP 137/73; PULSE 105; RESP 19; O2SAT 97
[2021-12-04] MEDS: Adenosine 6 MG/2 ML VIAL IVPUSH (20:00)
[2021-12-04] MEDS: 0.9 % Sodium Chloride 1,000 ML 999 ML IV (20:01)
--- NOTE | 2021-12-04 20:01 | PC.NURSE ---
adenosine given with karly de la o at bedside at 194 with continuous ekg being obtained. pt converted to ST 105 from SVT 205 pt reports feeling better, states it felt like my heart was going to explode. pt denies cp, sob, weakness, granado at this time. stretcher low locked, rails raised, call gomes within reach. awaiting lab results and dispo.
[2021-12-04 20:05] LABS: Basophils Percent Auto 0.3 % (0-2); Eosinophils Percent Auto 0.2 % (0-4); Hematocrit 39.4 % (37.0-47.0); Imm Gran Abs Auto 0.05 X10*3/uL (0.00-0.03); Imm Gran Pct Auto 0.5 % (0.0-0.4); Lymphocytes Absolute Auto 2.9 X10*3/uL (1.2-4.9); Lymphocytes Percent Auto 29.4 % (20-40); MANUAL DIFF FLAG SCAN; Mean Corpuscular HGB Conc 35.5 g/dl (31.0-35.0); Mean Corpuscular Hemoglobin 39.2 pg (27.0-33.0); Mean Platelet Volume 10.9 fL (9.4-12.3); Monocytes Absolute Auto 1.6 X10*3/uL (0.1-1.2); Monocytes Percent Auto 16.1 % (2-11); NRBC Pct Auto 0.6 /100WBC (0.0-0.2); Neutrophils Absolute Auto 5.2 x10*3/uL (2.0-8.3); Neutrophils Percent Auto 53.5 % (45-73); Platelet Count 237 X10*3/uL (160-400); Red Blood Count 3.57 X10*6/uL (4.20-5.50); Red Cell Distribution Width 14.6 % (11.0-16.0); SCAN SMEAR FLAG 1; White Blood Count 9.7 X10*3/uL (4.8-10.8)
[2021-12-04 20:17] LABS: Ethanol 72 mg/dL
[2021-12-04 20:19] LABS: Mean Corpuscular Volume 110.4 fL (80.0-98.0)
[2021-12-04 20:21] LABS: INTERNATIONAL NORM RATIO 0.8 (0.9-1.1); Prothrombin Time 9.4 SEC (9.9-13.0)
[2021-12-04 20:24] LABS: Partial Thromboplastin Time 32.7 SEC (24.1-38.0)
[2021-12-04 20:25] LABS: B Type Natriuretic Peptide 43 pg/mL (<100); Magnesium 1.5 mg/dL (1.6-2.6)
[2021-12-04 20:26] LABS: COVID-19 Test Negative (Negative)
[2021-12-04 20:29] LABS: Troponin-I High Sensitivity 57.7 ng/L (<3.5-17.0)
[2021-12-04 20:29] LABS: Alanine Aminotransferase 107 U/L (0-31); Albumin Level 4.1 g/dL (3.5-5.0); Alkaline Phosphatase 80 U/L (39-117); Anion Gap 26 (12-20); Aspartate Amino Transferase 173 U/L (5-31); Bilirubin Total 0.4 mg/dL (0.0-1.0); Blood Urea Nitrogen 19 mg/dL (9-16); Calcium 9.2 mg/dL (8.4-10.2); Carbon Dioxide 17 mmol/L (22-29); Chloride 102 mmol/L (96-108); Creatinine Clr Calc Pharmacy 61.5; Estimated Glomerular Filt Rate > 60; Glucose Random 117 mg/dL (60-115); Potassium 4.3 mmol/L (3.3-5.1); Sodium 141 mmol/L (135-145); Total Protein 6.9 g/dL (6.5-8.0)
[2021-12-04 20:42] LABS: SLIDE REVIEW VERIFIED
[2021-12-04 20:48] LABS: Thyroid Stimulating Hormone 2.13 uIU/mL (0.32-4.0)
--- NOTE | 2021-12-04 21:47 | ECG_ITS ---
Test Reason : SVT Blood Pressure : / mmHG Vent. Rate : 087 BPM Atrial Rate : 087 BPM P-R Int : 132 ms QRS Dur : 094 ms QT Int : 386 ms P-R-T Axes : 044 045 036 degrees QTc Int : 464 ms Normal sinus rhythm Cannot rule out Anterior infarct (cited on or before 04-DEC-2021) Abnormal ECG When compared with ECG of 04-DEC-2021 19:31, Vent. rate has decreased BY 117 BPM Normal sinus rhythm has replaced Supraventricular tachycardia Referred By: Tre Yang Electronically Signed By:KYM MEDINA MD
[2021-12-04 21:50] VITALS: BP 130/80; PULSE 86; RESP 12; O2SAT 97
[2021-12-04] MEDS: Magnesium Sulfate/H2O 2 GM/50 ML PIGGYBACK IV (21:52)
[2021-12-04 22:28] LABS: Troponin-I High Sensitivity 220.9 ng/L (<3.5-17.0)
--- NOTE | 2021-12-04 22:37 | ECG_ITS ---
Test Reason : cp Blood Pressure : / mmHG Vent. Rate : 083 BPM Atrial Rate : 083 BPM P-R Int : 118 ms QRS Dur : 078 ms QT Int : 394 ms P-R-T Axes : 051 038 035 degrees QTc Int : 462 ms Poor data quality Normal sinus rhythm Nonspecific ST and T wave abnormality Abnormal ECG When compared with ECG of 04-DEC-2021 22:03, No significant change was found Referred By: Nathalia Willoughby Electronically Signed By:KYM MEDINA MD
--- NOTE | 2021-12-04 23:41 | P.HPHOSP_ITS ---
History of Present Illness Date of Service: 12/04/21 Chief Complaint: palpitations 61-year-old female with a past medical history of alcohol abuse, anxiety, depression, hypothyroidism, hyperlipidemia presented to the hospital with a chief complaint of palpitations. Patient reported that around noon when she noted palpitations associated with his lightheadedness and dizziness; also felt like she is going to pass out but did not lose consciousness. Denies any fall. Denies any numbness tingling or focal weakness. At the time of my interview patient reports that she feels fine and normal at her baseline. Reports he drinks alcohol on a regular basis but denies any withdrawal symptoms. Denies any GI symptoms. Review of all other systems is negative except mentioned above ER course: Per ER team patient on presentation noted to be in SVT with heart rate in 180s; received adenosis in with improvement in heart rate and noted normal sinus rhythm. Patient had elevated troponins and follow-up troponin and doubled; ER team also mentioned that patient on presentation reported chest discomfort to the RN in triage; but denied any followed by. ER team discussed with Dr. Garner from Cardiology given elevated troponins-who recommended no heparin drip and to admitted to the hospital under telemetry and an echocardiogram. [facility] Medical History Achalasia, esophageal Anxiety CAD (coronary artery disease) Depression Elevated cholesterol Hx of Hodgkin's disease Hx of non-ST elevation myocardial infarction (NSTEMI) Hx of opioid abuse Hx pulmonary embolism Hypothyroid IBS (irritable bowel syndrome) Low vitamin B12 level Surgical History History of arthroplasty of left hip History of esophagogastroduodenoscopy (EGD) Hx of cardiac catheterization Hx of foot surgery Hx of hemorrhoidectomy Hx of splenectomy Hx of umbilical hernia repair Social History Alcohol intake: current Alcohol intake frequency: a few times a month Cigarettes Per Day: 5 Years Smoked: 40 Substance Use Type: Opiates Advance Directives: No Advance Directives Information Provided: Yes Patient : No Meds Allergies Allergy/AdvReac Type Severity Reaction Status Date / Time bee stings Allergy Severe anaphylaxis Uncoded 12/04/21 19:26 nickel Allergy Intermediate rash Uncoded 12/04/21 19:26 Shellfish Allergy Intermediate HIVES Uncoded 12/04/21 19:26 Active Medications: Current Medications Pharmacy Consult (Consult Rx Perform Med Rec) 1 each MISCELLANE ONCE PRN PRN Reason: Consult order Home Medications Medication Instructions Recorded Confirmed Last Taken Type aspirin 81 mg tablet,delayed 81 mg PO DAILY 11/12/20 12/05/21 02/12/21 History release cholecalciferol (vitamin D3) 25 25 mcg PO DAILY 11/12/20 12/05/21 Unknown History mcg (1,000 unit) capsule (Vitamin D3) folic acid 0.8 mg capsule 0.8 mg PO DAILY 11/12/20 12/05/21 Unknown History melatonin 5 mg tablet 10 mg PO BEDTIME 11/12/20 12/05/21 Unknown History trazodone 100 mg tablet 250 mg PO BEDTIME 12/05/21 12/05/21 Unknown History Physical Exam Vital Signs and Narrative: Vital Signs: Last Vital Signs Temp 98.1 F 12/04/21 19:31 Pulse 86 12/04/21 21:50 Resp 12 12/04/21 21:50 BP 130/80 12/04/21 21:50 Pulse Ox 97 12/04/21 21:50 BMI result Body Mass Index 20.3 Results Labs CBC and Chem 7: 12/04/21 19:52 12/04/21 19:52 Labs: Laboratory Results - last 24 hr 12/04/21 12/04/21 12/04/21 19:52 19:52 19:52 MCV 110.4 H MCH 39.2 H MCHC 35.5 H RDW 14.6 Plt Count 237 MPV 10.9 Immature Gran % (Auto) 0.5 H Neut % (Auto) 53.5 Lymph % (Auto) 29.4 [place] % (Auto) 16.1 H Eos % (Auto) 0.2 Baso % (Auto) 0.3 Lymph # (Auto) 2.9 [place] # (Auto) 1.6 H Eos # (Auto) 0.0 Baso # (Auto) 0.0 Abs Immat Gran (auto) 0.05 H Absolute Neuts (auto) 5.2 Absolute Nucleated RBC 0.060 H Nucleated RBC % (auto) 0.6 H Smear Tech's Comments VERIFIED PT 9.4 L INR 0.8 L APTT 32.7 Anion Gap 26 H Estim Creat Clear Calc 61.5 Estimated GFR > 60 Random Glucose 117 H Calcium 9.2 Magnesium Total Bilirubin 0.4 AST 173 H ALT 107 H Alkaline Phosphatase 80 D Troponin I High Sens B-Natriuretic Peptide Total Protein 6.9 Albumin 4.1 TSH 2.13 Ethyl Alcohol COVID-19 ([facility]) COVID-19 [facility] 12/04/21 12/04/21 12/04/21 19:52 19:52 19:53 MCV MCH MCHC RDW Plt Count MPV Immature Gran % (Auto) Neut % (Auto) Lymph % (Auto) [place] % (Auto) Eos % (Auto) Baso % (Auto) Lymph # (Auto) [place] # (Auto) Eos # (Auto) Baso # (Auto) Abs Immat Gran (auto) Absolute Neuts (auto) Absolute Nucleated RBC Nucleated RBC % (auto) Smear Tech's Comments PT INR APTT Anion Gap Estim Creat Clear Calc Estimated GFR Random Glucose Calcium Magnesium 1.5 L Total Bilirubin AST ALT Alkaline Phosphatase Troponin I High Sens B-Natriuretic Peptide 43 Total Protein Albumin TSH Ethyl Alcohol COVID-19 ([facility]) Negative COVIDGranData Com See Note 12/04/21 12/04/21 12/04/21 19:53 19:54 22:00 MCV MCH MCHC RDW Plt Count MPV Immature Gran % (Auto) Neut % (Auto) Lymph % (Auto) [place] % (Auto) Eos % (Auto) Baso % (Auto) Lymph # (Auto) [place] # (Auto) Eos # (Auto) Baso # (Auto) Abs Immat Gran (auto) Absolute Neuts (auto) Absolute Nucleated RBC Nucleated RBC % (auto) Smear Tech's Comments PT INR APTT Anion Gap Estim Creat Clear Calc Estimated GFR Random Glucose Calcium Magnesium Total Bilirubin AST ALT Alkaline Phosphatase Troponin I High Sens 57.7 H* 220.9 H* D B-Natriuretic Peptide Total Protein Albumin TSH Ethyl Alcohol 72 COVID-19 (T[facility]) COVID-19 Room[facility] Com Imaging Radiologist's Impressions: Impressions Chest X-Ray 12/04/21 20:05 IMPRESSION: No evidence of acute disease. Assessment and Plan (1) Near syncope: Status: Acute (2) Alcohol abuse: Status: Acute (3) Palpitation: Status: Acute 61-year-old female with a past medical history of alcohol abuse, anxiety, depression, hypothyroidism, hyperlipidemia, history of NSTEMI, Hodgkin's lymphoma, pulmonary embolism currentl;y not on AC, irritable bowel syndrome, vitamin B12 deficiency presented to the hospital with a chief complaint of palpitations. Noted to have following: SVT: Resolved after adenosine. Currently normal sinus rhythm. Symptoms i mproved. TSH within normal limits Near syncope/ chest discomfort: Troponins elevated. Cardiology aware of the patient. Currently asymptomatic. Echocardiogram Alcohol abuse: Monitor on CIWA protocol. Transaminitis: Likely in setting of alcohol use. Will also obtain acute hepatitis panel and right upper quadrant ultrasound. History of hypothyroidism: Continue home levothyroxine Depression: Continue home sertraline/bupropion DVT prophylaxis: Patient on Xarelto Code status: Full code Quality Stroke Does the patient have a stroke diagnosis?: No VTE Prior VTE?: No VTE Risk Level:: Medical - moderate - high VTE Device Contraindication: Treatment Not Indicated VTE Drug Contraindication: N/A - Med Ordered
[2021-12-05] VITALS (9 sets, daily range): BP systolic 129–154; BP diastolic 55–81; PULSE 66–85; RESP 12–18; TEMP 36.5–36.8; O2SAT 95–98; BMI 21.3
[2021-12-05] MEDS: traZODone HCL 50 MG TABLET PO (03:32)
--- NOTE | 2021-12-05 06:38 | PC.NURSE ---
pt med rec performed by this RN at bedside with pt. pt offers no complaints/concerns. stretcher in lowest locked position, rails raised, call gomes within reach, seizure precautions in place.
[2021-12-05 06:46] LABS: MANUAL DIFF FLAG NO
[2021-12-05 06:50] LABS: Basophils Percent Auto 0.2 % (0-2); Eosinophils Absolute Auto 0.1 X10*3/uL (0.0-0.4); Eosinophils Percent Auto 0.6 % (0-4); Hematocrit 34.9 % (37.0-47.0); Hemoglobin 12.4 g/dl (12.0-16.0); Imm Gran Abs Auto 0.04 X10*3/uL (0.00-0.03); Imm Gran Pct Auto 0.5 % (0.0-0.4); Lymphocytes Absolute Auto 3.4 X10*3/uL (1.2-4.9); Lymphocytes Percent Auto 40.8 % (20-40); Mean Corpuscular HGB Conc 35.5 g/dl (31.0-35.0); Mean Corpuscular Volume 109.7 fL (80.0-98.0); Mean Platelet Volume 10.9 fL (9.4-12.3); Monocytes Percent Auto 11.8 % (2-11); NRBC Pct Auto 0.6 /100WBC (0.0-0.2); Neutrophils Absolute Auto 3.8 x10*3/uL (2.0-8.3); Neutrophils Percent Auto 46.1 % (45-73); Platelet Count 211 X10*3/uL (160-400); Red Blood Count 3.18 X10*6/uL (4.20-5.50); Red Cell Distribution Width 14.5 % (11.0-16.0); White Blood Count 8.2 X10*3/uL (4.8-10.8)
[2021-12-05 07:13] LABS: Anion Gap 11 (12-20); Blood Urea Nitrogen 16 mg/dL (9-16); Calcium 8.3 mg/dL (8.4-10.2); Carbon Dioxide 27 mmol/L (22-29); Chloride 104 mmol/L (96-108); Creatinine Clr Calc Pharmacy 70.3; Estimated Glomerular Filt Rate > 60; Glucose Random 102 mg/dL (60-115); Potassium 3.6 mmol/L (3.3-5.1); Sodium 138 mmol/L (135-145)
[2021-12-05 07:22] LABS: Troponin-I High Sensitivity 338.3 ng/L (<3.5-17.0)
[2021-12-05 08:20] LABS: HBS Num1 0.14 mIU/mL (0-7.99); Hepatitis A Antibody IgM 0.19 Index (0-0.79); ~Hepatitis A Antibody IgM Nonreactive (Nonreactive); ~Hepatitis B Surface Antibody NONREACTIVE (Nonreactive)
[2021-12-05 08:35] LABS: HBc Num1 0.03 S/CO (0.00-0.79); HBsAGNum1 0.21 S/CO (0.00-0.99); Hepatitis B Core Antibody Nonreactive (Nonreactive); Hepatitis B Surface Antigen Negative (Negative); ~HepC Num1 0.05 S/CO (0.00-0.79); ~Hepatitis C Antibody Nonreactive (Nonreactive)
[2021-12-05] MEDS: Famotidine 20 MG TABLET PO ×2 (09:17→21:03)
[2021-12-05] MEDS: Aspirin Enteric Coated 81 MG TABLET.DR PO (09:18)
[2021-12-05] MEDS: Thiamine HCL 100 MG TABLET PO (09:18)
[2021-12-05] MEDS: Folic Acid 1 MG TABLET PO (09:18)
[2021-12-05] MEDS: Levothyroxine Sodium 75 MCG TABLET PO (09:18)
[2021-12-05] MEDS: buPROPion HCl XL 150 MG TAB.ER.24H PO (09:18)
[2021-12-05] MEDS: Multivitamin TABLET 1 TAB PO (09:18)
[2021-12-05] MEDS: Cholecalciferol (Vitamin D3) 25 MCG TABLET PO (09:19)
[2021-12-05] MEDS: 0.9 % Sodium Chloride Flush 3 ML SYRINGE IVFLUSH ×2 (09:21→18:22)
[2021-12-05] MEDS: Fenofibrate 160 MG TABLET PO (09:45)
--- NOTE | 2021-12-05 10:21 | MHC.CM.PN ---
Attempted to meet with patient in regards to discharge planning. Echo currently being performed. Will attempt to meet again.
--- NOTE | 2021-12-05 11:01 | PM.CNCAR ---
History of Present Illness History of Present Illness Date of Service: 12/05/21 Requesting physician: Surinder Hook Chief complaint: SVT, NSTEMI Narrative: I was requested to see Angela in cardiology consultation today for elevated troponins and tachycardia consistent with SVT. She is a 61-year-old woman with prior history of pulmonary embolism related to possible control pills an injury on oral anticoagulation for some time, carotid artery disease status post stenting many years ago question underlying coronary artery disease does not recall having any recent workup, alcohol use. Patient presented hospital yesterday after undergoing physical therapy for recent shoulder surgery and driving home. She developed significant lightheadedness and felt that her body was pulsating. This started about 130 in the afternoon. She did not seek emergency care till she continued to have symptoms till 19:00 and she came to the Emergency was noted to be in supraventricular tachycardia at 204 beats per minute with secondary rate-related ST depression. She has come subsequently treated for the same and her heart rate improved. However troponin was noted to be elevated and subsequently 3rd troponin still elevated at 300 range. She denies any symptoms of chest discomfort at any point in time. She is currently feeling comfortable and hemodynamically stable. She wants to go home. She says recently since of surgery because the boredom she has been drinking 3 large drinks of vodka every day. She says she has never had any alcohol withdrawal in the past. She has no recent exertional chest pain. Overall clinically at home she has been doing okay. Review of Systems Constitutional: Constitutional: Reports no additional constitutional complaints Cardiovascular: Cardiovascular: Denies chest pain, Reports rapid heart rate, Reports lightheadedness, Denies Loss of Consciousness and Denies dyspnea Respiratory: Respiratory: Denies dyspnea Gastrointestinal: Gastrointestinal: Reports no additional gastrointestinal complaints Genitourinary: Genitourinary: Reports no additional female genitourinary complaints Musculoskeletal: Musculoskeletal: Reports no additional musculoskeletal complaints Integumentary/Breasts: Skin/Breast: Reports system reviewed and no additional complaints, except as docu Neurologic: Reports system reviewed and no additional complaints, except as documented Psychiatric: Psychiatric: Reports no additional psychiatric complaints Endocrine: Endocrine: Reports no additional endocrine complaints Hematologic/Lymphatic: Hematologic/Lymphatic: Reports no additional hematologic/lymphatic complaints Allergic/Immunologic: Allergic/Immunologic: Reports no additional allergic/immunologic complaints PMFSH Past Medical History Medical History Achalasia, esophageal Anxiety CAD (coronary artery disease) Depression Elevated cholesterol Hx of Hodgkin's disease Hx of non-ST elevation myocardial infarction (NSTEMI) Hx of opioid abuse Hx pulmonary embolism Hypothyroid IBS (irritable bowel syndrome) Low vitamin B12 level Surgical History Surgical History History of arthroplasty of left hip History of esophagogastroduodenoscopy (EGD) Hx of cardiac catheterization Hx of foot surgery Hx of hemorrhoidectomy Hx of splenectomy Hx of umbilical hernia repair Social History Social History Alcohol intake: current Alcohol intake frequency: a few times a month Cigarettes Per Day: 5 Years Smoked: 40 Substance Use Type: Opiates Advance Directives: No Advance Directives Information Provided: Yes Patient : No Meds Allergies Allergy/AdvReac Type Severity Reaction Status Date / Time bee stings Allergy Severe anaphylaxis Uncoded 12/04/21 19:26 nickel Allergy Intermediate rash Uncoded 12/04/21 19:26 Shellfish Allergy Intermediate HIVES Uncoded 12/04/21 19:26 Active Medications: Current Medications Acetaminophen (Acetaminophen 325 Mg Tablet) 650 mg PO Q6H PRN PRN Reason: Pain, Mild (Pain Scale 1-3) Aspirin (Aspirin Enteric Coated 81 Mg Tablet.Dr) 81 mg PO DAILY [facility] Last Admin: 12/05/21 09:18 Dose: 81 mg Documented by: Bupropion HCl (Bupropion Hcl Xl 150 Mg Tab.Er.24h) 150 mg PO DAILY [facility] Last Admin: 12/05/21 09:18 Dose: 150 mg Documented by: Famotidine (Famotidine 20 Mg Tablet) 20 mg PO BID [facility] Last Admin: 12/05/21 09:17 Dose: 20 mg Documented by: Fenofibrate (Fenofibrate 160 Mg Tablet) 160 mg PO DAILY [facility] Last Admin: 12/05/21 09:45 Dose: 160 mg Documented by: Folic Acid (Folic Acid 1 Mg Tablet) 1 mg PO DAILY [facility] Stop: 12/08/21 08:59 Last Admin: 12/05/21 09:18 Dose: 1 mg Documented by: Levothyroxine Sodium (Levothyroxine Sodium 75 Mcg Tablet) 75 mcg PO DAILY@0600 [facility] Last Admin: 12/05/21 09:18 Dose: 75 mcg Documented by: Lorazepam (Lorazepam 1 Mg Tablet) 1 mg PO Q4H PRN PRN Reason: Breakthrough alcohol withdrawa Stop: 12/08/21 23:41 Melatonin (Melatonin 3 Mg Tablet) 6 mg PO BEDTIME PRN PRN Reason: Insomnia Multivitamins/Vitamin C (Multivitamin Tablet) 1 tab PO DAILY [facility] Stop: 12/08/21 08:59 Last Admin: 12/05/21 09:18 Dose: 1 tab Documented by: Nitroglycerin (Nitroglycerin 0.4 Mg Tab.Subl) 0.4 mg SUBLINGUAL [id number] PRN PRN Reason: Chest Pain Pharmacy Consult (Consult Rx Perform Med Rec) 1 each MISCELLANE ONCE PRN PRN Reason: Consult order Senna (Sennosides 8.6 Mg Tablet) 17.2 mg PO BEDTIME PRN PRN Reason: Constipation Sodium Chloride (0.9 % Sodium Chloride Flush 3 Ml Syringe) 3 ml IVFLUSH QSHIFT [facility] Last Admin: 12/05/21 09:21 Dose: 3 ml Documented by: Thiamine HCl (Thiamine Hcl 100 Mg Tablet) 100 mg PO DAILY [facility] Stop: 12/08/21 08:59 Last Admin: 12/05/21 09:18 Dose: 100 mg Documented by: Trazodone HCl (Trazodone Hcl 50 Mg Tablet) 100 - 200 mg PO BEDTIME [facility] Vitamin D (Cholecalciferol (Vitamin D3) 25 Mcg Tablet) 25 mcg PO DAILY [facility] Last Admin: 12/05/21 09:19 Dose: 25 mcg Documented by: Home Medications Medication Instructions Recorded Confirmed Last Taken Type aspirin 81 mg tablet,delayed 81 mg PO DAILY 11/12/20 12/05/21 02/12/21 History release cholecalciferol (vitamin D3) 25 25 mcg PO DAILY 11/12/20 12/05/21 Unknown History mcg (1,000 unit) capsule (Vitamin D3) folic acid 0.8 mg capsule 0.8 mg PO DAILY 11/12/20 12/05/21 Unknown History melatonin 5 mg tablet 10 mg PO BEDTIME 11/12/20 12/05/21 Unknown History sertraline 50 mg tablet 1 tab PO DAILY 12/05/21 Unknown History trazodone 100 mg tablet 100 - 200 mg PO BEDTIME 12/05/21 12/05/21 Unknown History Physical Exam Vital Signs: Vital Signs: Last Vital Signs Temp 98.1 F 12/05/21 09:03 Pulse 80 12/05/21 09:03 Resp 16 12/05/21 09:03 BP 137/68 12/05/21 09:03 Pulse Ox 97 12/05/21 09:03 BMI result Body Mass Index 20.3 Const: General: cooperative, comfortable, no acute distress, alert and awake Nutritional Appearance: thin Orientation/consciousness: patient oriented x3 Limitations: no limitations HENMT: Head: Yes normocephalic and Yes atraumatic Neck: Neck: Yes trachea midline, Yes supple and Yes no JVD Resp: Effort & Inspection: normal respiratory effort Auscultation: clear to auscultation bilaterally Cardio: Jugular venous distension: no JVD Palpation: normal PMI Rate: regular rate Rhythm: regular rhythm Heart sounds: S1 normal heart sound present, S2 normal heart sound present, no click, no gallops and no murmurs GI: Auscultation: normal bowel sounds Skin: General skin exam: no rashes or lesions noted Neuro: General: patient oriented x3 and no focal motor deficits Extrem: General: Yes no clubbing, cyanosis or edema Objective Labs and Meds Result diagrams: 12/05/21 06:26 12/05/21 06:26 Lab results: Laboratory Results - last 24 hr 12/04/21 12/04/21 12/04/21 19:52 19:52 19:52 WBC 9.7 RBC 3.57 L Hgb 14.0 Hct 39.4 MCV 110.4 H MCH 39.2 H MCHC 35.5 H RDW 14.6 Plt Count 237 MPV 10.9 Immature Gran % (Auto) 0.5 H Neut % (Auto) 53.5 Lymph % (Auto) 29.4 Barber % (Auto) 16.1 H Eos % (Auto) 0.2 Baso % (Auto) 0.3 Lymph # (Auto) 2.9 Barber # (Auto) 1.6 H Eos # (Auto) 0.0 Baso # (Auto) 0.0 Abs Immat Gran (auto) 0.05 H Absolute Neuts (auto) 5.2 Absolute Nucleated RBC 0.060 H Nucleated RBC % (auto) 0.6 H Smear Tech's Comments VERIFIED Smear Path Review Cancelled PT 9.4 L INR 0.8 L APTT 32.7 Sodium 141 Potassium 4.3 Chloride 102 Carbon Dioxide 17 L Anion Gap 26 H BUN 19 H Creatinine 0.80 Estim Creat Clear Calc 61.5 Estimated GFR > 60 Random Glucose 117 H Calcium 9.2 Magnesium Total Bilirubin 0.4 AST 173 H ALT 107 H Alkaline Phosphatase 80 D Troponin I High Sens B-Natriuretic Peptide Total Protein 6.9 Albumin 4.1 TSH 2.13 Ethyl Alcohol COVID-19 (TISH) COVID-19 Clin Com Hepatitis A IgM Ab Hep Bs Antigen Hep Bs Antibody Hep B Core Total Ab Hepatitis C Ab (EIA) 12/04/21 12/04/21 12/04/21 19:52 19:52 19:53 WBC RBC Hgb Hct MCV MCH MCHC RDW Plt Count MPV Immature Gran % (Auto) Neut % (Auto) Lymph % (Auto) Barber % (Auto) Eos % (Auto) Baso % (Auto) Lymph # (Auto) Barber # (Auto) Eos # (Auto) Baso # (Auto) Abs Immat Gran (auto) Absolute Neuts (auto) Absolute Nucleated RBC Nucleated RBC % (auto) Smear Tech's Comments Smear Path Review PT INR APTT Sodium Potassium Chloride Carbon Dioxide Anion Gap BUN Creatinine Estim Creat Clear Calc Estimated GFR Random Glucose Calcium Magnesium 1.5 L Total Bilirubin AST ALT Alkaline Phosphatase Troponin I High Sens B-Natriuretic Peptide 43 Total Protein Albumin TSH Ethyl Alcohol COVID-19 (TISH) Negative COVID-19 Clin Com See Note Hepatitis A IgM Ab Hep Bs Antigen Hep Bs Antibody Hep B Core Total Ab Hepatitis C Ab (EIA) 12/04/21 12/04/21 12/04/21 19:53 19:54 22:00 WBC RBC Hgb Hct MCV MCH MCHC RDW Plt Count MPV Immature Gran % (Auto) Neut % (Auto) Lymph % (Auto) Barber % (Auto) Eos % (Auto) Baso % (Auto) Lymph # (Auto) Barber # (Auto) Eos # (Auto) Baso # (Auto) Abs Immat Gran (auto) Absolute Neuts (auto) Absolute Nucleated RBC Nucleated RBC % (auto) Smear Tech's Comments Smear Path Review PT INR APTT Sodium Potassium Chloride Carbon Dioxide Anion Gap BUN Creatinine Estim Creat Clear Calc Estimated GFR Random Glucose Calcium Magnesium Total Bilirubin AST ALT Alkaline Phosphatase Troponin I High Sens 57.7 H* 220.9 H* D B-Natriuretic Peptide Total Protein Albumin TSH Ethyl Alcohol 72 COVID-19 (TISH) COVID-19 Clin Com Hepatitis A IgM Ab Hep Bs Antigen Hep Bs Antibody Hep B Core Total Ab Hepatitis C Ab (EIA) 12/05/21 12/05/21 12/05/21 06:26 06:26 06:26 WBC 8.2 RBC 3.18 L Hgb 12.4 Hct 34.9 L MCV 109.7 H MCH 39.0 H MCHC 35.5 H RDW 14.5 Plt Count 211 MPV 10.9 Immature Gran % (Auto) 0.5 H Neut % (Auto) 46.1 Lymph % (Auto) 40.8 H Barber % (Auto) 11.8 H Eos % (Auto) 0.6 Baso % (Auto) 0.2 Lymph # (Auto) 3.4 Barber # (Auto) 1.0 Eos # (Auto) 0.1 Baso # (Auto) 0.0 Abs Immat Gran (auto) 0.04 H Absolute Neuts (auto) 3.8 Absolute Nucleated RBC 0.050 H Nucleated RBC % (auto) 0.6 H Smear Tech's Comments Smear Path Review PT INR APTT Sodium 138 Potassium 3.6 Chloride 104 Carbon Dioxide 27 Anion Gap 11 L BUN 16 Creatinine 0.70 Estim Creat Clear Calc 70.3 Estimated GFR > 60 Random Glucose 102 Calcium 8.3 L D Magnesium Total Bilirubin AST ALT Alkaline Phosphatase Troponin I High Sens 338.3 H* D B-Natriuretic Peptide Total Protein Albumin TSH Ethyl Alcohol COVID-19 (TISH) COVID-19 Clin Com Hepatitis A IgM Ab Hep Bs Antigen Hep Bs Antibody Hep B Core Total Ab Hepatitis C Ab (EIA) 12/05/21 06:26 WBC RBC Hgb Hct MCV MCH MCHC RDW Plt Count MPV Immature Gran % (Auto) Neut % (Auto) Lymph % (Auto) Barber % (Auto) Eos % (Auto) Baso % (Auto) Lymph # (Auto) Barber # (Auto) Eos # (Auto) Baso # (Auto) Abs Immat Gran (auto) Absolute Neuts (auto) Absolute Nucleated RBC Nucleated RBC % (auto) Smear Tech's Comments Smear Path Review PT INR APTT Sodium Potassium Chloride Carbon Dioxide Anion Gap BUN Creatinine Estim Creat Clear Calc Estimated GFR Random Glucose Calcium Magnesium Total Bilirubin AST ALT Alkaline Phosphatase Troponin I High Sens B-Natriuretic Peptide Total Protein Albumin TSH Ethyl Alcohol COVID-19 (TISH) COVID-19 Clin Com Hepatitis A IgM Ab Nonreactive Hep Bs Antigen Negative Hep Bs Antibody NONREACTIVE Hep B Core Total Ab Nonreactive Hepatitis C Ab (EIA) Nonreactive Preliminary echo finding showed normal LV systolic function with basal inferior and basal inferoseptal akinetic segment suggestive prior underlying coronary disease. Do not appear to be acute wall motion abnormalities. Imaging Radiologist's impression: Impressions Chest X-Ray 12/04/21 20:05 IMPRESSION: No evidence of acute disease. Abdomen Ultrasound 12/05/21 08:26 IMPRESSION: Increased hepatic echogenicity is nonspecific but most likely fatty infiltration. No discrete mass or biliary ductal dilatation. Assessment and Plan (1) NSTEMI (non-ST elevated myocardial infarction): Status: Acute Patient presents with rapid supra tachycardia with secondary NSTEMI related to demand with rapid heart rate for such prolonged period time. Will watch her for 1 more day. Start on medical therapy with metoprolol 50 mg daily, long-acting. Continue low-dose aspirin therapy. Statin atorvastatin 40 mg daily. Definitely suggestive of underlying of prior coronary disease based on echocardiogram and wall motion abnormalities. Require ischemic workup as an outpatient with a myocardial perfusion imaging. She is currently symptomatic Deepthi having no symptoms of unstable angina. 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 Also causing secondary AK. I discussed with her about the pathophysiology of supraventricular tachycardia and treatment options. I think she would best be treated with an ablated approach. She would like to follow-up with her primary public relations representative as outpatient which is appropriate and this can be taken care of as an outpatient. Start metoprolol as above. Avoid stimulants such as caffeine and alcohol. She understands agrees. Vagal maneuvers were discussed. Will sign of the case. Patient may be discharged if her troponins are down trending by tomorrow. Will follow-up after full echocardiogram report. Procedures Date of Service Date of Service: 12/05/21
--- NOTE | 2021-12-05 11:33 | PC.NURSE ---
patient a&ox3, panel monitor intact/nsr, vss, pt denying pain and discomfort, call gomes within reach, will continue to monitor.
--- NOTE | 2021-12-05 12:00 | CA_ITS ---
Transthoracic Echocardiogram Patient (Last, First, Middle): Angela Carranza, Gender: Female Date of : 1960 Age: 61 Procedure Date: 12/05/2021 Procedure Type: Transthoracic Echocardiogram Location: ER Height: 160.02 cm Weight: 52.16 kg BSA: 1.53 m2 Heart Rate: bpm BP: 129 / 55 mmHg Investigative Research Specialist: YANE Referring MD: Nathalia Willoughby MD Access Registrar: Kishore Garner MD Symptoms: PSVT, elevated troponins Study Quality: Fair ECG Rhythm: Sinus Conclusions: - 1. Normal LV systolic function with grade 1 diastolic dysfunction with wall motion abnormality suggestive underlying coronary artery disease 2. Normal cardiac valvular Doppler 3. Normal RV systolic pressure 4. No gross pericardial effusion Findings Left Ventricle Normal left ventricular size, thickness, and systolic function. The visually estimated ejection fraction is between 55-60%. Spectral Doppler is indicative of an impaired relaxation filling pattern. E/E prime ratio is <8, consistent with normal filling pressures. Evidence suggests grade I (mild) diastolic dysfunction. Wall Motion Rest Echo Findings The basal inferolateral segment is hypokinetic. The basal inferior and basal inferoseptal segments are akinetic. All other scored wall segments showed normal motion. Right Ventricle Normal right ventricular cavity size and systolic function. Atria The left atrium is mildly dilated. There is lipomatous hypertrophy of the interatrial septum. There is no evidence of interatrial shunt. The right atrium is normal in size. Aortic Valve Normal aortic valve structure and function. There is no aortic valve stenosis. There is no aortic valve regurgitation. Mitral Valve There is mild anterior mitral leaflet thickening. There is mild mitral annular calcification. There is trace mitral valve regurgitation. There is no mitral valve stenosis. Pulmonic Valve The pulmonic valve was not well visualized. Tricuspid Valve Likely normal tricuspid valve structure and function. There is trace tricuspid valve regurgitation. The right ventricular systolic pressure is normal. The right ventricular systolic pressure is 19 mmHg. Normal right atrial pressure. There is no evidence of pulmonary hypertension. Great Vessels All visible segments of the aorta are normal in size. The pulmonary artery was not well visualized. Venous The inferior vena cava is normal in size and collapses greater than 50% with inspiration. Pericardium/Pleural There is no evidence of pericardial effusion. Prior Study Comparison Changes noted compared to prior study dated: 05/25/2018. Basal inferior and inferoseptal wall motion abnormality noted Measurements 2D Linear Measurements IVSd: 1.10 0.6-0.9/0.6-1.0 cm LVIDd: 4.91 3.9-5.3/4.2-5.9 cm LVIDd Index: 3.21 2.4-3.2/2.2-3.1 cm/m2 LVIDs: 3.57 2.0-3.6 cm LVPWd: 0.98 0.7-1.1 cm Ao Root: 3.30 2.1-3.5 cm LA Diam: 3.20 2.7-3.8/3.0-4.0 cm LAIDs Index: 2.09 1.5-2.3 cm/m2 LV Mass: 231.48 67-162/88-224 g LV Mass Index: 151.29 43-95/49-115 g/m2 LVOT Diam: 2.10 3.0+(-)1.3 cm 2D Systolic Function EF 4C: 56.60 >55% EF 2C: 59.00 >55% EF BiP: 56.20 >55% Mitral Valve MV Pk E: 0.49 MV PK A: 0.53 MV Decel Time: 327.00 E/A: 0.90 E'Lateral: 8.38 E'Medial: 6.53 E/E' Med: 7.50 E/E' Lat: 5.90 PHT: 96.00 MVA PHT: 2.29 Decel Edmonson: 1.50 Aortic Valve AoV Pk Dorian: 1.01 AoV Mn Dorian: 0.78 AoV VTI: 0.26 AoV Pk Grad: 4.00 Aov Mn Grad: 3.00 ARASH Cont.VTI: 2.61 LVOT LVOT Pk Dorian: 0.84 LVOT Mn Dorian: 0.61 LVOT VTI: 0.19 LVOT Pk Grad: 3.00 LVOT Mn Grad: 2.00 LVOT Diam: 2.10 LVOT Area: 3.46 Diastolic Function MV Pk E: 0.49 MV Pk A: 0.53 E/A: 0.90 E'Medial: 6.53 E/E' Med: 7.50 E' Laterial: 8.38 E/E' Lat: 5.90 Right Ventricle TAPSE (mm): 21.20 TVS' Dorian: 9.90 Tricuspid Valve TR Pk Dorian: 2.00 TR Pk Grad: 16.00 RA Press: 3.00 RVSP: 19.00 Great Vessels Aorta Ao Root-2D: 3.30 2.0-3.7 cm Ao Asc: 3.20 2.1-3.4 cm Ao Arch: 3.10 Updated in Other Vendor System with Status of Final Kishore Garnre MD electronically signed on 12/05/2021 12:21:59 PM with status of Final
--- NOTE | 2021-12-05 13:09 | MHC.CM.PN ---
Met with patient in regards to discharge planning. Patient lives with her boyfriend Agus, ambulates independently and had no services prior to coming to the hospital. Patient still works. No services anticipated to be needed because patient is not homebound. PCP verified as Dr Hirsch. Patient denies having a HCP. Information provided. Patient not interested in completing one at this time. Patient received 3 Pfizer vaccines. Agus will transport patient home when medically stable. Obs notice not given because patient was changed to inpatient. Continue to monitor for d/c needs.
--- NOTE | 2021-12-05 13:32 | PC.NURSE ---
patient a&ox3, no c/o pain or discomfort at this time, classroom monitor intact nsr, pt sitting eating lunch, call gomes within reach, will continue to monitor.
--- NOTE | 2021-12-05 16:50 | P.PNIM_ITS ---
Subjective Subjective Date of Service: 12/05/21 Interval History: No acute issues in the night. She denies further palpitations or chest pain Review of Systems Type chest pain Denies shortness of breath Denies nausea vomiting diarrhea Physical Exam Vital Signs: Vital Signs: Last Vital Signs Temp 98.2 F 12/05/21 16:32 Pulse 78 12/05/21 16:32 Resp 16 12/05/21 16:32 BP 154/81 H 12/05/21 16:32 Pulse Ox 98 12/05/21 16:32 BMI result Body Mass Index 20.3 Const: Other: Awake alert oriented x3 no acute distress Resp: Other: Diminished at bases but otherwise clear no rales rhonchi wheezes Cardio: Other: No S4; positive S1-S2; no S3 murmurs or gallops GI: Other: Soft nontender nondistended with normoactive bowel sounds. No rebound or guarding Neuro: Other: Cranial nerves 2-12 grossly intact as tested. Motor is 5/5 all extremities. Sensation intact. Cognition appropriate Extrem: Other: No edema bilateral Objective Data Active Medications Acetaminophen (Acetaminophen 325 Mg Tablet) 650 mg PO Q6H PRN PRN Reason: Pain, Mild (Pain Scale 1-3) Aspirin (Aspirin Enteric Coated 81 Mg Tablet.) 81 mg PO DAILY [facility] Last Admin: 12/05/21 09:18 Dose: 81 mg Documented by: ASHANTI Famotidine (Famotidine 20 Mg Tablet) 20 mg PO BID [facility] Last Admin: 12/05/21 09:17 Dose: 20 mg Documented by: ASHANTI Folic Acid (Folic Acid 1 Mg Tablet) 1 mg PO DAILY [facility] Stop: 12/08/21 08:59 Last Admin: 12/05/21 09:18 Dose: 1 mg Documented by: ASHANTI Levothyroxine Sodium (Levothyroxine Sodium 75 Mcg Tablet) 75 mcg PO DAILY@0600 [facility] Last Admin: 12/05/21 09:18 Dose: 75 mcg Documented by: ASHANTI Lorazepam (Lorazepam 1 Mg Tablet) 1 mg PO Q4H PRN PRN Reason: Breakthrough alcohol withdrawa Stop: 12/08/21 23:41 Melatonin (Melatonin 3 Mg Tablet) 6 mg PO BEDTIME PRN PRN Reason: Insomnia Multivitamins/Vitamin C (Multivitamin Tablet) 1 tab PO DAILY [facility] Stop: 12/08/21 08:59 Last Admin: 12/05/21 09:18 Dose: 1 tab Documented by: ASHANTI Nitroglycerin (Nitroglycerin 0.4 Mg Tab.Subl) 0.4 mg SUBLINGUAL Q5MX3 PRN PRN Reason: Chest Pain Pharmacy Consult (Consult Rx Perform Med Rec) 1 each MISCELLANE ONCE PRN PRN Reason: Consult order Senna (Sennosides 8.6 Mg Tablet) 17.2 mg PO BEDTIME PRN PRN Reason: Constipation Sertraline HCl (Sertraline Hcl 50 Mg Tablet) 50 mg PO DAILY [facility] Sodium Chloride (0.9 % Sodium Chloride Flush 3 Ml Syringe) 3 ml IVFLUSH QSHIFT [facility] Last Admin: 12/05/21 09:21 Dose: 3 ml Documented by: ASHANTI Thiamine HCl (Thiamine Hcl 100 Mg Tablet) 100 mg PO DAILY [facility] Stop: 12/08/21 08:59 Last Admin: 12/05/21 09:18 Dose: 100 mg Documented by: ASHANTI Trazodone HCl (Trazodone Hcl 50 Mg Tablet) 100 mg PO BEDTIME [facility] Vitamin D (Cholecalciferol (Vitamin D3) 25 Mcg Tablet) 25 mcg PO DAILY [facility] Last Admin: 12/05/21 09:19 Dose: 25 mcg Documented by: ASHANTI Labs CBC & Chem 7: 12/05/21 06:26 12/05/21 06:26 Labs: Laboratory Results - last 24 hr 12/04/21 12/04/21 12/04/21 19:52 19:52 19:52 MCV 110.4 H MCH 39.2 H MCHC 35.5 H RDW 14.6 Plt Count 237 MPV 10.9 Immature Gran % (Auto) 0.5 H Neut % (Auto) 53.5 Lymph % (Auto) 29.4 [place] % (Auto) 16.1 H Eos % (Auto) 0.2 Baso % (Auto) 0.3 Lymph # (Auto) 2.9 [place] # (Auto) 1.6 H Eos # (Auto) 0.0 Baso # (Auto) 0.0 Abs Immat Gran (auto) 0.05 H Absolute Neuts (auto) 5.2 Absolute Nucleated RBC 0.060 H Nucleated RBC % (auto) 0.6 H Smear Tech's Comments VERIFIED Smear Path Review Cancelled PT 9.4 L INR 0.8 L APTT 32.7 Anion Gap 26 H Estim Creat Clear Calc 61.5 Estimated GFR > 60 Random Glucose 117 H Calcium 9.2 Magnesium Total Bilirubin 0.4 AST 173 H ALT 107 H Alkaline Phosphatase 80 D Troponin I High Sens B-Natriuretic Peptide Total Protein 6.9 Albumin 4.1 TSH 2.13 Ethyl Alcohol COVID-19 (TISH) COVID-19 Clin Com Hepatitis A IgM Ab Hep Bs Antigen Hep Bs Antibody Hep B Core Total Ab Hepatitis C Ab (EIA) 12/04/21 12/04/21 12/04/21 19:52 19:52 19:53 MCV MCH MCHC RDW Plt Count MPV Immature Gran % (Auto) Neut % (Auto) Lymph % (Auto) [place] % (Auto) Eos % (Auto) Baso % (Auto) Lymph # (Auto) [place] # (Auto) Eos # (Auto) Baso # (Auto) Abs Immat Gran (auto) Absolute Neuts (auto) Absolute Nucleated RBC Nucleated RBC % (auto) Smear Tech's Comments Smear Path Review PT INR APTT Anion Gap Estim Creat Clear Calc Estimated GFR Random Glucose Calcium Magnesium 1.5 L Total Bilirubin AST ALT Alkaline Phosphatase Troponin I High Sens B-Natriuretic Peptide 43 Total Protein Albumin TSH Ethyl Alcohol COVID-19 (TISH) Negative COVID-19 Clin Com See Note Hepatitis A IgM Ab Hep Bs Antigen Hep Bs Antibody Hep B Core Total Ab Hepatitis C Ab (EIA) 12/04/21 12/04/21 12/04/21 19:53 19:54 22:00 MCV MCH MCHC RDW Plt Count MPV Immature Gran % (Auto) Neut % (Auto) Lymph % (Auto) [place] % (Auto) Eos % (Auto) Baso % (Auto) Lymph # (Auto) [place] # (Auto) Eos # (Auto) Baso # (Auto) Abs Immat Gran (auto) Absolute Neuts (auto) Absolute Nucleated RBC Nucleated RBC % (auto) Smear Tech's Comments Smear Path Review PT INR APTT Anion Gap Estim Creat Clear Calc Estimated GFR Random Glucose Calcium Magnesium Total Bilirubin AST ALT Alkaline Phosphatase Troponin I High Sens 57.7 H* 220.9 H* D B-Natriuretic Peptide Total Protein Albumin TSH Ethyl Alcohol 72 COVID-19 (TISH) COVID-19 Clin Com Hepatitis A IgM Ab Hep Bs Antigen Hep Bs Antibody Hep B Core Total Ab Hepatitis C Ab (EIA) 12/05/21 12/05/21 12/05/21 06:26 06:26 06:26 MCV 109.7 H MCH 39.0 H MCHC 35.5 H RDW 14.5 Plt Count 211 MPV 10.9 Immature Gran % (Auto) 0.5 H Neut % (Auto) 46.1 Lymph % (Auto) 40.8 H [place] % (Auto) 11.8 H Eos % (Auto) 0.6 Baso % (Auto) 0.2 Lymph # (Auto) 3.4 [place] # (Auto) 1.0 Eos # (Auto) 0.1 Baso # (Auto) 0.0 Abs Immat Gran (auto) 0.04 H Absolute Neuts (auto) 3.8 Absolute Nucleated RBC 0.050 H Nucleated RBC % (auto) 0.6 H Smear Tech's Comments Smear Path Review PT INR APTT Anion Gap 11 L Estim Creat Clear Calc 70.3 Estimated GFR > 60 Random Glucose 102 Calcium 8.3 L D Magnesium Total Bilirubin AST ALT Alkaline Phosphatase Troponin I High Sens 338.3 H* D B-Natriuretic Peptide Total Protein Albumin TSH Ethyl Alcohol COVID-19 (TISH) COVID-19 Clin Com Hepatitis A IgM Ab Hep Bs Antigen Hep Bs Antibody Hep B Core Total Ab Hepatitis C Ab (EIA) 12/05/21 06:26 MCV MCH MCHC RDW Plt Count MPV Immature Gran % (Auto) Neut % (Auto) Lymph % (Auto) [place] % (Auto) Eos % (Auto) Baso % (Auto) Lymph # (Auto) [place] # (Auto) Eos # (Auto) Baso # (Auto) Abs Immat Gran (auto) Absolute Neuts (auto) Absolute Nucleated RBC Nucleated RBC % (auto) Smear Tech's Comments Smear Path Review PT INR APTT Anion Gap Estim Creat Clear Calc Estimated GFR Random Glucose Calcium Magnesium Total Bilirubin AST ALT Alkaline Phosphatase Troponin I High Sens B-Natriuretic Peptide Total Protein Albumin TSH Ethyl Alcohol COVID-19 (TISH) COVID-19 Clin Com Hepatitis A IgM Ab Nonreactive Hep Bs Antigen Negative Hep Bs Antibody NONREACTIVE Hep B Core Total Ab Nonreactive Hepatitis C Ab (EIA) Nonreactive Assessment and Plan (1) NSTEMI (non-ST elevated myocardial infarction): Status: Acute (2) Alcohol abuse: Status: Acute (3) Paroxysmal SVT (supraventricular tachycardia): Status: Acute Assessment and Plan: 61-year-old female presents the hospital on the day of admission after undergoing physical therapy for shoulder surgery developed significant lightheadedness while driving home. She continued home thinking this would resolve on its own. When symptoms did not resolve she presented to the emergency room. In the emergency room was found to be in SVT at 204 beats per minute with a secondary rate related ST depression. She received adenosine in the emergency room with reversal of her rate. Troponin noted to be elevated; has not peaked. Currently pain-free 1.NSTEMI As per Cardiology will start metoprolol 50 mg daily. Continue low-dose aspirin add atorvastatin 40 mg daily. Will trend troponins, and if troponins trending downward will DC in a.m. for outpatient follow-up and treatment 2. Alcohol abuse Denies history of withdrawal seizures; continue on CIWA protocol 3. Hypothyroidism Continue outpatient dosing Full code Lovenox Quality Stroke Does the patient have a stroke diagnosis?: No VTE Prior VTE?: No VTE Risk Level:: Medical - moderate - high VTE Device Contraindication: Treatment Not Indicated VTE Drug Contraindication: N/A - Med Ordered
--- NOTE | 2021-12-05 18:23 | PC.NURSE ---
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
[2021-12-05 18:51] LABS: Troponin-I High Sensitivity 227.8 ng/L (<3.5-17.0)
[2021-12-05] MEDS: traZODone HCL 50 MG TABLET 100 MG PO (21:03)
--- NOTE | 2021-12-05 22:19 | PC.NURSE ---
called floor to give report, nurse will call us back.
--- NOTE | 2021-12-05 22:25 | PC.NURSE ---
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
[2021-12-06] VITALS: BP 171/81; PULSE 81; RESP 18; TEMP 36.8; O2SAT 98
[2021-12-06] MEDS: 0.9 % Sodium Chloride Flush 3 ML SYRINGE IVFLUSH (00:08)
[2021-12-06] MEDS: Melatonin 3 MG TABLET 6 MG PO (02:10)
[2021-12-06 03:08] VITALS: BP 144/76; PULSE 80; RESP 18; TEMP 36.5; O2SAT 98
[2021-12-06] MEDS: Levothyroxine Sodium 75 MCG TABLET PO (05:40)
[2021-12-06 06:52] LABS: MANUAL DIFF FLAG NO
[2021-12-06 07:00] LABS: Basophils Percent Auto 0.3 % (0-2); Eosinophils Absolute Auto 0.1 X10*3/uL (0.0-0.4); Eosinophils Percent Auto 0.7 % (0-4); Hematocrit 38.9 % (37.0-47.0); Hemoglobin 13.6 g/dl (12.0-16.0); Imm Gran Abs Auto 0.03 X10*3/uL (0.00-0.03); Imm Gran Pct Auto 0.4 % (0.0-0.4); Lymphocytes Absolute Auto 2.8 X10*3/uL (1.2-4.9); Mean Corpuscular Hemoglobin 38.4 pg (27.0-33.0); Mean Corpuscular Volume 109.9 fL (80.0-98.0); Mean Platelet Volume 11.5 fL (9.4-12.3); Monocytes Percent Auto 14.2 % (2-11); NRBC Pct Auto 0.7 /100WBC (0.0-0.2); Neutrophils Absolute Auto 3.3 x10*3/uL (2.0-8.3); Neutrophils Percent Auto 45.4 % (45-73); Platelet Count 216 X10*3/uL (160-400); Red Blood Count 3.54 X10*6/uL (4.20-5.50); Red Cell Distribution Width 14.2 % (11.0-16.0); White Blood Count 7.2 X10*3/uL (4.8-10.8)
[2021-12-06 07:18] VITALS: BP 140/75; PULSE 71; RESP 18; TEMP 36.1; O2SAT 97
[2021-12-06 07:33] LABS: Alanine Aminotransferase 73 U/L (0-31); Albumin Level 3.8 g/dL (3.5-5.0); Alkaline Phosphatase 73 U/L (39-117); Anion Gap 12 (12-20); Aspartate Amino Transferase 76 U/L (5-31); Bilirubin Total 0.6 mg/dL (0.0-1.0); Blood Urea Nitrogen 8 mg/dL (9-16); Calcium 9.3 mg/dL (8.4-10.2); Carbon Dioxide 27 mmol/L (22-29); Chloride 106 mmol/L (96-108); Creatinine Clr Calc Pharmacy 86.8; Estimated Glomerular Filt Rate > 60; Glucose Fasting 96 mg/dL (60-99); Potassium 3.7 mmol/L (3.3-5.1); Sodium 141 mmol/L (135-145); Total Protein 6.1 g/dL (6.5-8.0)
[2021-12-06 07:40] LABS: Troponin-I High Sensitivity 132.6 ng/L (<3.5-17.0)
--- NOTE | 2021-12-06 11:24 | P.DS_ITS ---
DS: Providers Provider Date of Service: 12/06/21 Date of admission: 12/04/21 23:37 Date of discharge: 12/06/21 Primary care physician: Unknown Physician Consults: 12/04/21 23:37 Consult to Cardiology Routine Consulting Provider: Kishore Garner Reason for consultation: elevated troponin DS: Diagnosis Discharge Diagnosis (1) NSTEMI (non-ST elevated myocardial infarction): Status: Acute (2) Alcohol abuse: Status: Acute (3) Paroxysmal SVT (supraventricular tachycardia): Status: Acute DS: Summary Hospital Course Hospital Course: ?Patient presents with rapid supra tachycardia with secondary NSTEMI related to demand with rapid heart rate for such prolonged period time.Started on medical therapy with metoprolol 50 mg daily, long-acting.? Continue low-dose aspirin therapy.?Added atorvastatin 40 mg daily.? Definitely suggestive of underlying of prior coronary disease based on echocardiogram and wall motion abnormalities.? patient will follow up with own shoe sticks repairer for ischemic workup as an outpatient with a myocardial perfusion imaging.? She is currently symptomatic; no symptoms of unstable angina. ? ? ? 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 Also causing secondary FL.? Pascual (Cardiology) troponins trended downward at the time of discharge she has remained chest pain free in normal sinus rhythm. She will be discharged home with above recommendations. She is encouraged tobacco cessation along with alcohol temperance Time Spent with Patient Time attestation: Total time spent providing and/or coordinating discharge services: Discharge coordination time: Greater than 30 minutes Quality: Stroke Does the patient have a stroke diagnosis?: No Physical Exam Vital Signs: Vital Signs: Last Vital Signs Temp 97.0 F 12/06/21 07:18 Pulse 71 12/06/21 07:18 Resp 18 12/06/21 07:18 BP 140/75 H 12/06/21 07:18 Pulse Ox 97 12/06/21 07:18 BMI result Body Mass Index 21.3 Const: Other: Awake alert oriented x3 no acute distress Resp: Other: Diminished at bases but otherwise clear no rales rhonchi wheezes Cardio: Other: No S4; positive S1-S2; no S3 murmurs or gallops GI: Other: Soft nontender nondistended with normoactive bowel sounds. No rebound or guarding Neuro: Other: Cranial nerves 2-12 grossly intact as tested. Motor is 5/5 all extremities. Sensation intact. Cognition appropriate Extrem: Other: No edema bilateral DS: Data Data Completed and Pending Labs on day of discharge: Laboratory Results - last 24 hr 12/05/21 12/06/21 12/06/21 18:14 06:08 06:08 WBC 7.2 RBC 3.54 L Hgb 13.6 Hct 38.9 MCV 109.9 H MCH 38.4 H MCHC 35.0 RDW 14.2 Plt Count 216 MPV 11.5 Immature Gran % (Auto) 0.4 Neut % (Auto) 45.4 Lymph % (Auto) 39.0 [place] % (Auto) 14.2 H Eos % (Auto) 0.7 Baso % (Auto) 0.3 Lymph # (Auto) 2.8 [place] # (Auto) 1.0 Eos # (Auto) 0.1 Baso # (Auto) 0.0 Abs Immat Gran (auto) 0.03 Absolute Neuts (auto) 3.3 Absolute Nucleated RBC 0.050 H Nucleated RBC % (auto) 0.7 H Sodium Potassium Chloride Carbon Dioxide Anion Gap BUN Creatinine Estim Creat Clear Calc Estimated GFR Fasting Glucose Calcium Total Bilirubin AST ALT Alkaline Phosphatase Troponin I High Sens 227.8 H* 132.6 H* Total Protein Albumin 12/06/21 06:08 WBC RBC Hgb Hct MCV MCH MCHC RDW Plt Count MPV Immature Gran % (Auto) Neut % (Auto) Lymph % (Auto) [place] % (Auto) Eos % (Auto) Baso % (Auto) Lymph # (Auto) [place] # (Auto) Eos # (Auto) Baso # (Auto) Abs Immat Gran (auto) Absolute Neuts (auto) Absolute Nucleated RBC Nucleated RBC % (auto) Sodium 141 Potassium 3.7 Chloride 106 Carbon Dioxide 27 Anion Gap 12 BUN 8 L Creatinine 0.57 Estim Creat Clear Calc 86.8 Estimated GFR > 60 Fasting Glucose 96 Calcium 9.3 D Total Bilirubin 0.6 AST 76 H ALT 73 H Alkaline Phosphatase 73 Troponin I High Sens Total Protein 6.1 L Albumin 3.8 Discharge Plan Discharge Patient Disposition: Home, Self-Care Discharge Diagnosis: NSTEMI Referrals: Kishore Garner MD [Physician] - 2 weeks Physician,Rogerio J [Primary Care Provider] - 1 Week Discharge Medications: New magnesium oxide 400 mg magnesium tablet 400 mg PO DAILY Qty: 30 RF: 0 metoprolol succinate 50 mg tablet extended release 24 hr 50 mg PO DAILY Qty: 30 RF: 2 atorvastatin 40 mg tablet 40 mg PO BEDTIME Qty: 30 RF: 2 Continued levothyroxine [Tirosint] 75 mcg capsule 75 mcg PO QAM 30 Days Qty: 30 RF: 3 melatonin 5 mg Tablet 10 mg PO BEDTIME RF: 0 aspirin 81 mg Tablet,Delayed Release (Dr/Ec) 81 mg PO DAILY RF: 0 cholecalciferol (vitamin D3) [Vitamin D3] 25 mcg (1,000 unit) Capsule 25 mcg PO DAILY RF: 0 folic acid 0.8 mg Capsule 0.8 mg PO DAILY RF: 0 trazodone 100 mg tablet 250 mg PO BEDTIME RF: 0 sertraline 50 mg tablet 1 tab PO DAILY RF: 0 Discharge Orders: Discharge Order (Routine); Ordered 12/06/21 Ordered By: Surinder Hook Diet: advance to usual diet Activity on Discharge: As tolerated Stand Alone Forms: Patient Portal Discharge page Care Plan Goals: follow-up with her private shoe sticks repairer in 1-2 weeks to discuss workup and treatment Health Concerns: attempts smokes cessations along with alcohol temperance Plan of Treatment: take metoprolol 50 mg daily, atorvastatin 40 mg daily, aspirin 81 mg daily in addition to your home meds Assessment: see discharge plan Patient Instructions: Supraventricular Tachycardia (ED), Abuse of Alcohol (ED), Hypomagnesemia (ED)
[2021-12-06 11:30] VITALS: BP 139/68; PULSE 74; RESP 18; TEMP 36.6; O2SAT 95
--- NOTE | 2021-12-06 11:36 | P.PNCA_ITS ---
Subjective Subjective Date of Service: 12/06/21 Principal diagnosis: SVT, NSTEMI Interval history: No chest pain. No palpitations. Doing well overall. Ambulating without any issues Review of Systems Review of Systems Yes all other systems are reviewed and are negative Physical Exam Vital Signs: Last Vital Signs Temp 97.8 F 12/06/21 11:30 Pulse 74 12/06/21 11:30 Resp 18 12/06/21 11:30 BP 139/68 12/06/21 11:30 Pulse Ox 95 12/06/21 11:30 BMI result Body Mass Index 21.3 Const General: cooperative, comfortable, alert and awake Nutritional Appearance: thin Orientation/consciousness: patient oriented x3 Neck Neck: Yes trachea midline, Yes supple and Yes no JVD Resp Effort & Inspection: normal respiratory effort Auscultation: clear to auscultation bilaterally Cardio Jugular venous distension: no JVD Palpation: normal PMI Rate: regular rate Rhythm: regular rhythm Heart sounds: S1 normal heart sound present, S2 normal heart sound present, no click, no gallops and no murmurs GI Auscultation: normal bowel sounds Neuro General: patient oriented x3 Extrem General: Yes no clubbing, cyanosis or edema Objective Labs and Meds Result diagrams: 12/06/21 06:08 12/06/21 06:08 Lab results: Laboratory Results - last 24 hr 12/05/21 12/06/21 12/06/21 18:14 06:08 06:08 WBC 7.2 RBC 3.54 L Hgb 13.6 Hct 38.9 MCV 109.9 H MCH 38.4 H MCHC 35.0 RDW 14.2 Plt Count 216 MPV 11.5 Immature Gran % (Auto) 0.4 Neut % (Auto) 45.4 Lymph % (Auto) 39.0 [place] % (Auto) 14.2 H Eos % (Auto) 0.7 Baso % (Auto) 0.3 Lymph # (Auto) 2.8 [place] # (Auto) 1.0 Eos # (Auto) 0.1 Baso # (Auto) 0.0 Abs Immat Gran (auto) 0.03 Absolute Neuts (auto) 3.3 Absolute Nucleated RBC 0.050 H Nucleated RBC % (auto) 0.7 H Sodium Potassium Chloride Carbon Dioxide Anion Gap BUN Creatinine Estim Creat Clear Calc Estimated GFR Fasting Glucose Calcium Total Bilirubin AST ALT Alkaline Phosphatase Troponin I High Sens 227.8 H* 132.6 H* Total Protein Albumin 12/06/21 06:08 WBC RBC Hgb Hct MCV MCH MCHC RDW Plt Count MPV Immature Gran % (Auto) Neut % (Auto) Lymph % (Auto) [place] % (Auto) Eos % (Auto) Baso % (Auto) Lymph # (Auto) [place] # (Auto) Eos # (Auto) Baso # (Auto) Abs Immat Gran (auto) Absolute Neuts (auto) Absolute Nucleated RBC Nucleated RBC % (auto) Sodium 141 Potassium 3.7 Chloride 106 Carbon Dioxide 27 Anion Gap 12 BUN 8 L Creatinine 0.57 Estim Creat Clear Calc 86.8 Estimated GFR > 60 Fasting Glucose 96 Calcium 9.3 D Total Bilirubin 0.6 AST 76 H ALT 73 H Alkaline Phosphatase 73 Troponin I High Sens Total Protein 6.1 L Albumin 3.8 Progress Note: A&P Assessment and plan (1) NSTEMI (non-ST elevated myocardial infarction): Status: Acute Assessment and Plan: NSTEMI secondary to rapid SVT, prolonged. Echo findings consistent with underlying coronary artery disease. High likelihood of obstructive CAD given her multiple risk factors. Requires outpatient workup with nuclear perfusion imaging. Continue aspirin metoprolol 1 statin therapy. (2) Paroxysmal SVT (supraventricular tachycardia): Status: Acute Assessment and Plan: SVT, new onset. Given prolonged episode and marked ventricular heart rate hospitalization would consider pursuing ablation. Was discussed with her. Patient can be discharged home today. Advised to follow-up with her own traffic assistant in near future. Fall Risk Details Current Medications: Current Medications Acetaminophen (Acetaminophen 325 Mg Tablet) 650 mg PO Q6H PRN PRN Reason: Pain, Mild (Pain Scale 1-3) Aspirin (Aspirin Enteric Coated 81 Mg Tablet.) 81 mg PO DAILY [facility] Last Admin: 12/05/21 09:18 Dose: 81 mg Documented by: Famotidine (Famotidine 20 Mg Tablet) 20 mg PO BID [facility] Last Admin: 12/05/21 21:03 Dose: 20 mg Documented by: Folic Acid (Folic Acid 1 Mg Tablet) 1 mg PO DAILY [facility] Stop: 12/08/21 08:59 Last Admin: 12/05/21 09:18 Dose: 1 mg Documented by: Levothyroxine Sodium (Levothyroxine Sodium 75 Mcg Tablet) 75 mcg PO DAILY@0600 [facility] Last Admin: 12/06/21 05:40 Dose: 75 mcg Documented by: Lorazepam (Lorazepam 1 Mg Tablet) 1 mg PO Q4H PRN PRN Reason: Breakthrough alcohol withdrawa Stop: 12/08/21 23:41 Melatonin (Melatonin 3 Mg Tablet) 6 mg PO BEDTIME PRN PRN Reason: Insomnia Last Admin: 12/06/21 02:10 Dose: 6 mg Documented by: Multivitamins/Vitamin C (Multivitamin Tablet) 1 tab PO DAILY [facility] Stop: 12/08/21 08:59 Last Admin: 12/05/21 09:18 Dose: 1 tab Documented by: Nitroglycerin (Nitroglycerin 0.4 Mg Tab.Subl) 0.4 mg SUBLINGUAL Q5MX3 PRN PRN Reason: Chest Pain Pharmacy Consult (Consult Rx Perform Med Rec) 1 each MISCELLANE ONCE PRN PRN Reason: Consult order Senna (Sennosides 8.6 Mg Tablet) 17.2 mg PO BEDTIME PRN PRN Reason: Constipation Sertraline HCl (Sertraline Hcl 50 Mg Tablet) 50 mg PO DAILY [facility] Sodium Chloride (0.9 % Sodium Chloride Flush 3 Ml Syringe) 3 ml IVFLUSH QSHIFT [facility] Last Admin: 12/06/21 00:08 Dose: 3 ml Documented by: Thiamine HCl (Thiamine Hcl 100 Mg Tablet) 100 mg PO DAILY [facility] Stop: 12/08/21 08:59 Last Admin: 12/05/21 09:18 Dose: 100 mg Documented by: Trazodone HCl (Trazodone Hcl 50 Mg Tablet) 100 mg PO BEDTIME [facility] Last Admin: 12/05/21 21:03 Dose: 100 mg Documented by: Vitamin D (Cholecalciferol (Vitamin D3) 25 Mcg Tablet) 25 mcg PO DAILY [facility] Last Admin: 12/05/21 09:19 Dose: 25 mcg Documented by: Time Spent With Patient Time: Total time spent is greater than 50% in coordination of care (as documented) at patient's floor/unit and/or counseling patient: Time with patient: 15 - 24 minutes Progress Note: Quality Stroke Does the patient have a stroke diagnosis?: No Procedures Date of Service Date of Service: 12/06/21
--- NOTE | 2021-12-06 11:38 | MHC.CM.PN ---
PT CLEARED TO DC HOME TODAY WITH NO SERVICES PT TO SELF ARRANGE TRANSPORTATION
[2021-12-06] MEDS: Cholecalciferol (Vitamin D3) 25 MCG TABLET PO (11:48)
[2021-12-06] MEDS: Aspirin Enteric Coated 81 MG TABLET.DR PO (11:48)
[2021-12-06] MEDS: Folic Acid 1 MG TABLET PO (11:48)
[2021-12-06] MEDS: Thiamine HCL 100 MG TABLET PO (11:48)
[2021-12-06] MEDS: Sertraline HCL 50 MG TABLET PO (11:49)
[2021-12-06] MEDS: Multivitamin TABLET 1 TAB PO (11:49)
[2021-12-06] MEDS: Famotidine 20 MG TABLET PO (11:49)
== END 2021-12-06 12:19 | disposition home or self-care (01) | DRG 201 ==
LOC: HO.ED 23:32 → HO.EDOVER 12-05 05:58 → HO.IMC 12-05 22:09
PROVIDERS: Student in an Organized Health Care Education/Training Program; Admitting Provider Hospitalist; Emergency Provider Internal Medicine; PCP Internal Medicine; Visit Provider Hospitalist
DX: I47.1 Supraventricular tachycardia (principal); I21.A1 Myocardial infarction type 2; E03.9 Hypothyroidism, unspecified; F10.10 Alcohol abuse, uncomplicated; F41.9 Anxiety disorder, unspecified; F32.A Depression, unspecified; I25.10 Atherosclerotic heart disease of native coronary artery without angina pectoris; Z20.822 Contact with and (suspected) exposure to COVID-19; F17.210 Nicotine dependence, cigarettes, uncomplicated; Z71.6 Tobacco abuse counseling; Z79.82 Long term (current) use of aspirin; Z79.890 Hormone replacement therapy; Z79.899 Other long term (current) drug therapy
CPT/HCPCS: 36415; 71045; 76705; 80048; 80053; 82077; 83735; 83880; 84443; 84484; 85025; 85610; 85730; 86704; 86706; 86709; 86803; 87340; 87635; 93005; 93306; 96361; 96365; 96375; 99285; J0153; J3475

== ENCOUNTER 2022-01-06 15:23 | Outpatient (REF) | payer OTHER, SELFPAY ==
--- NOTE | ~2022-01-06 | XR_ITS ---
EXAMINATION: XR CHEST CLINICAL INFORMATION: Cough COMPARISON: Chest radiographs 12/04/2021, 03/17/2018 TECHNIQUE: 2 views of the chest were obtained. FINDINGS: There is new trace blunting right lateral costophrenic angle, new from prior studies which may represent small effusion. No meniscus sign noted posterior costophrenic sulcus. The lungs are otherwise clear and there is no lobar or segmental airspace consolidation or groundglass opacity. The heart is normal in size. The hilar and mediastinal contours are unremarkable. There are degenerative changes thoracic spine. XR/XR chest 2V IMPRESSION: New trace blunting right lateral costophrenic angle which may represent small effusion. Lungs clear.
== END 2022-01-06 15:24 | disposition home or self-care (01) ==
LOC: HO.XRAY 15:23
PROVIDERS: PCP Internal Medicine; Visit Provider Nurse Practitioner Family
DX: R05.9 Cough, unspecified (principal)
CPT/HCPCS: 71046

== ENCOUNTER 2022-02-05 14:00 | Outpatient (RCR) | payer OTHER, SELFPAY | END 2022-06-12 13:53 | disposition home or self-care (01) | LOC: HO.PTWFD 14:00 | PROVIDERS: PCP Internal Medicine; Visit Provider Orthopaedic Surgery | DX: M75.41 Impingement syndrome of right shoulder (principal); M75.21 Bicipital tendinitis, right shoulder; M75.42 Impingement syndrome of left shoulder; M75.22 Bicipital tendinitis, left shoulder | CPT/HCPCS: 97110; 97140; 97161 ==

== ENCOUNTER 2022-03-04 13:35 | Outpatient (REF) | payer OTHER, SELFPAY ==
--- NOTE | ~2022-03-04 | MM_ITS ---
EXAMINATION: MM SCREENING DIGITAL BREAST TOMOSYNTHESIS, BILATERAL CLINICAL INFORMATION: Screening. Asymptomatic. The lifetime risk of breast cancer based on the Tyrer-Cuzick Model is 7%. COMPARISON: Mammography: 05/17/2020, 01/13/2019, 05/20/2017 TECHNIQUE: Digital breast tomosynthesis is performed in both the craniocaudal and mediolateral oblique views along with computer-aided detection (CAD). Synthesized 2D images are generated from the tomosynthesis. FINDINGS: The breasts are heterogeneously dense, which may obscure small masses (ACR BI-RADS breast composition Category c). There are no significant masses, abnormal calcifications, or other abnormalities. Parenchymal pattern is similar to prior studies. No developing density. The axilla and skin contours are unremarkable. MM/MM tomosynthesis screening BI IMPRESSION: No mammographic evidence of malignancy. ASSESSMENT: BI-RADS 1: Negative RECOMMENDATION: Routine annual mammography screening. This patient's information was entered into a reminder system with a target due date for their next mammogram.
== END 2022-03-04 13:36 | disposition home or self-care (01) ==
LOC: HO.MAMMO 13:35
PROVIDERS: PCP Internal Medicine; Visit Provider Internal Medicine
DX: Z12.31 Encounter for screening mammogram for malignant neoplasm of breast (principal)
CPT/HCPCS: 77063; 77067

== ENCOUNTER 2022-03-11 13:32 | Outpatient (REF) | payer OTHER, SELFPAY ==
--- NOTE | ~2022-03-11 | XR_ITS ---
EXAMINATION: XR SHOULDER, RIGHT CLINICAL INFORMATION: Shoulder pain COMPARISON: None TECHNIQUE: AP external rotation, Grashey, scapular Y, and axillary views of the right shoulder. FINDINGS: No fracture. Minimal acromioclavicular arthritis. Glenohumeral and acromioclavicular alignment is anatomic with normal joint space. No abnormal soft tissue calcifications. XR/XR shoulder RT min 2V IMPRESSION: Minimal acromioclavicular arthritis.
== END 2022-03-11 13:33 | disposition home or self-care (01) ==
LOC: HO.LAB 13:32
PROVIDERS: PCP Internal Medicine; Visit Provider Nurse Practitioner Family
DX: M25.511 Pain in right shoulder (principal)
CPT/HCPCS: 73030

== ENCOUNTER 2022-03-19 14:25 | Outpatient (REF) | payer OTHER, SELFPAY ==
--- NOTE | ~2022-03-19 | US_ITS ---
EXAMINATION: US DIAGNOSTIC ULTRASOUND BREAST, BILATERAL CLINICAL INFORMATION: Bilateral mastodynia. No discharge. Recent mammography unremarkable. TC score 7%. COMPARISON: Mammography 03/04/2022, bilateral screening breast ultrasound 06/14/2020, bilateral mammography 05/17/2020. TECHNIQUE: Ultrasound of both breasts is performed targeted to the areas of clinical concern. Grayscale imaging and color Doppler are performed without and with harmonics. Right breast is imaged subareolar and periareolar and 2:00 through 4:00 position. Left breast is imaged 9:00 and 1:00 through 5:00. FINDINGS: There is no focal suspicious finding. There is no cystic or solid mass, architectural abnormality, duct ectasia, or edema in the soft tissue planes. No skin thickening. No hyperemia. Results are discussed with the patient at time of visit. US/US breast RT limited IMPRESSION: Normal bilateral targeted breast ultrasound. ASSESSMENT: BI-RADS 1: Negative RECOMMENDATION: 1. Patient's bilateral mastodynia should be managed based on the clinical impression. 2. Otherwise, routine annual screening mammography. This patient's information was entered into a reminder system with a target due date for their next mammogram.
--- NOTE | ~2022-03-19 | US_ITS ---
EXAMINATION: US DIAGNOSTIC ULTRASOUND BREAST, BILATERAL CLINICAL INFORMATION: Bilateral mastodynia. No discharge. Recent mammography unremarkable. TC score 7%. COMPARISON: Mammography 03/04/2022, bilateral screening breast ultrasound 06/14/2020, bilateral mammography 05/17/2020. TECHNIQUE: Ultrasound of both breasts is performed targeted to the areas of clinical concern. Grayscale imaging and color Doppler are performed without and with harmonics. Right breast is imaged subareolar and periareolar and 2:00 through 4:00 position. Left breast is imaged 9:00 and 1:00 through 5:00. FINDINGS: There is no focal suspicious finding. There is no cystic or solid mass, architectural abnormality, duct ectasia, or edema in the soft tissue planes. No skin thickening. No hyperemia. Results are discussed with the patient at time of visit. US/US breast LT limited IMPRESSION: Normal bilateral targeted breast ultrasound. ASSESSMENT: BI-RADS 1: Negative RECOMMENDATION: 1. Patient's bilateral mastodynia should be managed based on the clinical impression. 2. Otherwise, routine annual screening mammography. This patient's information was entered into a reminder system with a target due date for their next mammogram.
== END 2022-03-19 14:26 | disposition home or self-care (01) ==
LOC: HO.MAMMO 14:25
PROVIDERS: PCP Internal Medicine; Visit Provider Nurse Practitioner Family
DX: N64.4 Mastodynia (principal)
CPT/HCPCS: 76642

== ENCOUNTER 2022-03-24 13:19 | Outpatient (REF) | payer OTHER, SELFPAY ==
--- NOTE | ~2022-03-24 | XR_ITS ---
EXAMINATION: XR CHEST CLINICAL INFORMATION: R05.9 - Cough, unspecified COMPARISON: Chest radiographs 01/06/2022, 12/04/2021 TECHNIQUE: Frontal and lateral views of the chest are obtained. FINDINGS: There is no interval airspace consolidation or groundglass opacity. The posterior costophrenic sulci are clear and there is no effusion. The heart is normal in size. The vascularity is normal. The hilar and mediastinal contours and bony structures are stable. XR/XR chest 2V IMPRESSION: No acute intrathoracic disease.
== END 2022-03-24 13:20 | disposition home or self-care (01) ==
LOC: HO.XRAY 13:19
PROVIDERS: PCP Internal Medicine; Visit Provider Internal Medicine
DX: R05.9 Cough, unspecified (principal)
CPT/HCPCS: 71046

== ENCOUNTER 2022-05-21 13:58 | Outpatient (REF) | payer OTHER, SELFPAY ==
--- NOTE | ~2022-05-21 | XR_ITS ---
EXAMINATION: XR THORACIC SPINE CLINICAL INFORMATION: Low back pain COMPARISON: None TECHNIQUE: 3 views of the thoracic spine were obtained. FINDINGS: Mild biconvex thoracolumbar scoliosis is present. Degenerative changes are seen in the thoracic spine with disc space narrowing and some osteophyte formation. There is mild anterior wedging of at least 3 adjacent mid thoracic vertebral bodies with associated mild kyphosis. No bony destructive lesions are seen. Paraspinal soft tissues appear normal. Left hemidiaphragm is mildly elevated. Surgical clips present in the right upper quadrant. XR/XR thoracic spine 3V IMPRESSION: Mild degenerative changes in the thoracic spine with scoliosis and mild kyphosis.
== END 2022-05-21 13:59 | disposition home or self-care (01) ==
LOC: HO.HMGCX 13:58
PROVIDERS: PCP Internal Medicine
DX: M54.50 Low back pain, unspecified (principal)
CPT/HCPCS: 72072

== ENCOUNTER 2022-09-28 12:00 | Outpatient (RCR) | payer OTHER, SELFPAY | END 2022-10-26 13:30 | disposition home or self-care (01) | LOC: HO.PT 12:00 | PROVIDERS: PCP Internal Medicine; Visit Provider Internal Medicine | DX: M54.50 Low back pain, unspecified (principal) | CPT/HCPCS: 97110; 97112; 97162 ==

== ENCOUNTER 2022-10-12 13:28 | Outpatient (REF) | payer OTHER, SELFPAY ==
[2022-10-12 13:49] LABS: MANUAL DIFF FLAG NO
[2022-10-12 14:27] LABS: Basophils Percent Auto 0.6 % (0-2); Eosinophils Percent Auto 0.5 % (0-4); Hematocrit 40.3 % (37.0-47.0); Hemoglobin 14.2 g/dl (12.0-16.0); Imm Gran Abs Auto 0.02 X10*3/uL (0.00-0.03); Imm Gran Pct Auto 0.3 % (0.0-0.4); Lymphocytes Absolute Auto 2.1 X10*3/uL (1.2-4.9); Lymphocytes Percent Auto 34.2 % (20-40); Mean Corpuscular HGB Conc 35.2 g/dl (31.0-35.0); Mean Corpuscular Hemoglobin 37.2 pg (27.0-33.0); Mean Corpuscular Volume 105.5 fL (80.0-98.0); Mean Platelet Volume 10.7 fL (9.4-12.3); Monocytes Absolute Auto 1.1 X10*3/uL (0.1-1.2); Monocytes Percent Auto 17.3 % (2-11); NRBC Pct Auto 0.3 /100WBC (0.0-0.2); Neutrophils Absolute Auto 2.9 x10*3/uL (2.0-8.3); Neutrophils Percent Auto 47.1 % (45-73); Platelet Count 238 X10*3/uL (160-400); Red Blood Count 3.82 X10*6/uL (4.20-5.50); Red Cell Distribution Width 13.2 % (11.0-16.0); White Blood Count 6.2 X10*3/uL (4.8-10.8)
[2022-10-12 14:33] LABS: Appearance Urine Clear; Color Urine Yellow; Glucose Urine UA Negative (Negative); Leukocyte Esterase Urine Negative (Negative); Nitrite Urine Negative (Negative); Specific Gravity - Urine >= 1.030 (1.005-1.025); Urine Blood Negative (Negative); Urine Ketones >=80 mg/dL (Negative); Urine Protein Negative (Neg-Trace)
[2022-10-12 15:23] LABS: Alanine Aminotransferase 40 U/L (0-31); Albumin Level 4.6 g/dL (3.5-5.0); Alkaline Phosphatase 58 U/L (39-117); Anion Gap 21 (12-20); Aspartate Amino Transferase 64 U/L (5-31); Bilirubin Total 0.9 mg/dL (0.0-1.0); Blood Urea Nitrogen 14 mg/dL (9-16); Calcium 9.8 mg/dL (8.4-10.2); Carbon Dioxide 26 mmol/L (22-29); Chloride 102 mmol/L (96-108); Cholesterol 212 mg/dL; Estimated Glomerular Filt Rate > 60; Glucose Fasting 80 mg/dL (60-99); HDL Cholesterol 121 mg/dL; LDL Cholesterol Calculated 71 mg/dl; Magnesium 1.7 mg/dL (1.6-2.6); Potassium 4.5 mmol/L (3.3-5.1); Sodium 144 mmol/L (135-145); Thyroid Stimulating Hormone 0.12 uIU/mL (0.32-4.0); Total Protein 7.1 g/dL (6.5-8.0); Triglycerides 103 mg/dL; Vitamin D 25-OH Total 27.3 ng/mL (>30)
[2022-10-12 16:01] LABS: Folate > 20.0 ng/mL (> or = 4.0); Vitamin B12 > 2000 pg/mL (200-900)
== END 2022-10-12 13:29 | disposition home or self-care (01) ==
LOC: HO.LAB 13:28
PROVIDERS: Visit Provider Internal Medicine
DX: E03.9 Hypothyroidism, unspecified (principal); E78.00 Pure hypercholesterolemia, unspecified; E53.8 Deficiency of other specified B group vitamins; E83.42 Hypomagnesemia; I10 Essential (primary) hypertension
CPT/HCPCS: 36415; 80053; 80061; 81003; 82306; 82607; 82746; 83735; 84439; 84443; 85025

== ENCOUNTER 2022-11-10 13:16 | Outpatient (REF) | payer OTHER, SELFPAY ==
--- NOTE | ~2022-11-10 | XR_ITS ---
EXAMINATION: XR RIBS, LEFT CLINICAL INFORMATION: Chest pain. COMPARISON: Chest x-ray 01/06/2022. TECHNIQUE: PA chest and 3 views of the left ribs. FINDINGS: PA film of the chest does not demonstrate any evidence of acute parenchymal disease, pneumothorax, or significant pleural effusion. There is blunting of the right costophrenic angle which may be related to small pleural effusion or pleural-parenchymal scarring. This was present on previous study of 03/24/2022. Heart normal size. No evidence of pulmonary edema. Calcified granuloma seen within the right upper lobe. No acute displaced left rib fracture is identified. No destructive bony lesion is seen. XR/XR ribs LT min 3V w CXR1V IMPRESSION: 1. No acute parenchymal disease within the chest. 2. No acute displaced left rib fracture.
== END 2022-11-10 13:17 | disposition home or self-care (01) ==
LOC: HO.XRAY 13:16
PROVIDERS: PCP Internal Medicine; Visit Provider Internal Medicine
DX: R07.89 Other chest pain (principal); R05.9 Cough, unspecified
CPT/HCPCS: 71101

== ENCOUNTER 2023-03-10 13:43 | Outpatient (REF) | payer OTHER, SELFPAY ==
[2023-03-10 13:57] LABS: MANUAL DIFF FLAG NO
[2023-03-10 14:44] LABS: Basophils Percent Auto 0.5 % (0-2); Eosinophils Absolute Auto 0.1 X10*3/uL (0.0-0.4); Eosinophils Percent Auto 1.5 % (0-4); Hematocrit 36.6 % (37.0-47.0); Hemoglobin 12.8 g/dl (12.0-16.0); Imm Gran Abs Auto 0.02 X10*3/uL (0.00-0.03); Imm Gran Pct Auto 0.4 % (0.0-0.4); Lymphocytes Absolute Auto 2.1 X10*3/uL (1.2-4.9); Lymphocytes Percent Auto 37.5 % (20-40); Mean Corpuscular Hemoglobin 37.4 pg (27.0-33.0); Monocytes Absolute Auto 0.9 X10*3/uL (0.1-1.2); Monocytes Percent Auto 15.8 % (2-11); NRBC Pct Auto 0.9 /100WBC (0.0-0.2); Neutrophils Absolute Auto 2.4 x10*3/uL (2.0-8.3); Neutrophils Percent Auto 44.3 % (45-73); Platelet Count 229 X10*3/uL (160-400); Red Blood Count 3.42 X10*6/uL (4.20-5.50); Red Cell Distribution Width 14.5 % (11.0-16.0); White Blood Count 5.5 X10*3/uL (4.8-10.8)
[2023-03-10 16:01] LABS: Alanine Aminotransferase 28 U/L (0-31); Alkaline Phosphatase 71 U/L (39-117); Anion Gap 14 (12-20); Aspartate Amino Transferase 47 U/L (5-31); Bilirubin Total 0.5 mg/dL (0.0-1.0); Blood Urea Nitrogen 10 mg/dL (9-16); Calcium 8.9 mg/dL (8.4-10.2); Carbon Dioxide 27 mmol/L (22-29); Chloride 107 mmol/L (96-108); Cholesterol 179 mg/dL; Estimated Glomerular Filt Rate > 60; Glucose Fasting 88 mg/dL (60-99); HDL Cholesterol 94 mg/dL; LDL Cholesterol Calculated 46 mg/dl; Magnesium 1.4 mg/dL (1.6-2.6); Sodium 144 mmol/L (135-145); Total Protein 6.2 g/dL (6.5-8.0); Triglycerides 196 mg/dL
[2023-03-10 16:16] LABS: Free T4 (Free Thyroxine) 0.81 ng/dL (0.71-1.85); Thyroid Stimulating Hormone 0.55 uIU/mL (0.32-4.0); Vitamin D 25-OH Total 79.3 ng/mL (>30)
[2023-03-10 17:10] LABS: Appearance Urine Clear; Color Urine Yellow; Glucose Urine UA Negative (Negative); Leukocyte Esterase Urine Negative (Negative); Nitrite Urine Negative (Negative); Urine Blood Negative (Negative); Urine Ketones Negative (Negative); Urine Protein Negative (Neg-Trace)
== END 2023-03-10 13:44 | disposition home or self-care (01) ==
LOC: HO.LAB 13:43
PROVIDERS: PCP Internal Medicine; Visit Provider Internal Medicine
DX: I10 Essential (primary) hypertension (principal); E78.00 Pure hypercholesterolemia, unspecified; E03.9 Hypothyroidism, unspecified; E83.42 Hypomagnesemia; R30.0 Dysuria; E55.9 Vitamin D deficiency, unspecified
CPT/HCPCS: 36415; 80053; 80061; 81003; 82306; 83735; 84439; 84443; 85025

== ENCOUNTER 2023-03-11 13:57 | Outpatient (REF) | payer OTHER, SELFPAY ==
--- NOTE | ~2023-03-11 | XR_ITS ---
EXAMINATION: XR CERVICAL SPINE CLINICAL INFORMATION: Fall COMPARISON: Cervical spine CT June 2017 TECHNIQUE: 3 views of the cervical spine were obtained. FINDINGS: There is mild posterior displacement of C5 with respect to C4 and C6 measuring 2 mm. This is similar to previous CT scan. Bone alignment is otherwise normal. No fracture or dislocation. There is degenerative spondylosis and degenerative disc disease from C4-C5 to C6-C7 Prevertebral soft tissues are normal. There is a vascular stent in the left neck. XR/XR cervical spine 3V IMPRESSION: Degenerative changes. No fracture or dislocation.
== END 2023-03-11 13:58 | disposition home or self-care (01) ==
LOC: HO.XRAY 13:57
PROVIDERS: PCP Internal Medicine; Visit Provider Internal Medicine
DX: Z91.81 History of falling (principal)
CPT/HCPCS: 72040

== ENCOUNTER 2023-04-02 15:03 | Outpatient (REF) | payer OTHER, SELFPAY ==
--- NOTE | ~2023-04-02 | CT_ITS ---
EXAMINATION: CT HEAD WITHOUT CONTRAST CLINICAL INFORMATION: Fall COMPARISON: None available. TECHNIQUE: Contiguous axial imaging was performed from the skull base to vertex without intravenous administration of contrast. This CT examination was performed using dose optimization techniques as appropriate, variously including the following: *Automated exposure control *Adjustment of mA and/or kV according to patient size (this includes techniques or standardized protocols for targeted exams where dose is matched to indication/reason for exam; i.e. extremities or head) *Use of iterative reconstruction technique DLP: 737 mGy-cm FINDINGS: Is no acute intra-axial, extra-axial bleed, masses or midline shift. There is no acute infarction evolution. Is no edema. The mantilla to white matter difference is maintained normal. The lateral ventricles are symmetrical but enlarged. No gross bony abnormality seen. Bilateral paranasal sinuses and mastoid air cells are well-aerated. There is no scalp soft tissue abnormality. CT/CT head/brain wo IV con IMPRESSION: No acute intracranial process seen
== END 2023-04-02 15:04 | disposition home or self-care (01) ==
LOC: HO.CT 15:03
PROVIDERS: PCP Internal Medicine; Visit Provider Internal Medicine
DX: Z91.81 History of falling (principal)
CPT/HCPCS: 70450

== ENCOUNTER 2023-04-12 13:12 | Outpatient (REF) | payer OTHER, SELFPAY ==
--- NOTE | ~2023-04-12 | XR_ITS ---
EXAMINATION: XR KNEE, LEFT CLINICAL INFORMATION: Pain. COMPARISON: None available. TECHNIQUE: 4 views of the left knee. FINDINGS: There is meniscal calcification with no bony erosive changes. Mild loss of tricompartment joint space is seen. There is no abnormal joint effusion. No loose bodies. XR/XR knee LT 4V IMPRESSION: Mild degenerative changes of the tricompartments. Chondrocalcinosis. No abnormal joint effusion.
== END 2023-04-12 13:13 | disposition home or self-care (01) ==
LOC: HO.XRAY 13:12
PROVIDERS: PCP Internal Medicine; Visit Provider Internal Medicine
DX: M25.562 Pain in left knee (principal)
CPT/HCPCS: 73564

== ENCOUNTER 2023-05-28 15:31 | Outpatient (REF) | payer OTHER, SELFPAY ==
--- NOTE | ~2023-05-28 | MM_ITS ---
EXAMINATION: MM SCREENING DIGITAL BREAST TOMOSYNTHESIS, BILATERAL CLINICAL INFORMATION: Screening. Asymptomatic. The lifetime risk of breast cancer based on the Tyrer-Cuzick Model is 7.9%. COMPARISON: Mammography: This study is compared to prior mammograms dating back to 2019. TECHNIQUE: Digital breast tomosynthesis is performed in both the craniocaudal and mediolateral oblique views along with computer-aided detection (CAD). Synthesized 2D images are generated from the tomosynthesis. FINDINGS: The breasts are heterogeneously dense, which may obscure small masses (ACR BI-RADS breast composition Category c). There are no significant masses, abnormal calcifications, or other abnormalities. MM/MM tomosynthesis screening BI IMPRESSION: No mammographic evidence of malignancy. ASSESSMENT: BI-RADS BI-RADS 1 - Negative RECOMMENDATION: Routine annual mammography screening. 1 year F/U This patient's information was entered into a reminder system with a target due date for their next mammogram.
== END 2023-05-28 15:32 | disposition home or self-care (01) ==
LOC: HO.MAMMO 15:31
PROVIDERS: PCP Internal Medicine; Visit Provider Internal Medicine
DX: Z12.31 Encounter for screening mammogram for malignant neoplasm of breast (principal)
CPT/HCPCS: 77063; 77067

== ENCOUNTER → 2023-05-28 15:45 | Outpatient (BNV) | payer OTHER, SELFPAY | PROVIDERS: PCP Internal Medicine; Visit Provider Radiology Diagnostic Radiology | DX: Z12.31 Encounter for screening mammogram for malignant neoplasm of breast (principal) | CPT/HCPCS: 77063; 77067 ==

== ENCOUNTER 2024-06-09 12:23 | Outpatient (AMB) | payer OTHER, SELFPAY ==
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
[2024-06-09 12:32] VITALS: BP 130/82; PULSE 84; O2SAT 95; BMI 22.5
== END 2024-06-09 13:12 | disposition home or self-care (01) ==
PROVIDERS: PCP Internal Medicine; Visit Provider Internal Medicine
DX: R42 Dizziness and giddiness (principal); I25.2 Old myocardial infarction; F33.0 Major depressive disorder, recurrent, mild; M54.50 Low back pain, unspecified; G89.29 Other chronic pain; M25.50 Pain in unspecified joint; I65.22 Occlusion and stenosis of left carotid artery; R20.2 Paresthesia of skin; E78.2 Mixed hyperlipidemia; E03.9 Hypothyroidism, unspecified; Z86.711 Personal history of pulmonary embolism; Z85.71 Personal history of Hodgkin lymphoma
CPT/HCPCS: 99214

== ENCOUNTER 2024-06-09 13:18 | Outpatient (REF) | payer OTHER, SELFPAY ==
[2024-06-09 13:38] LABS: MANUAL DIFF FLAG NO
[2024-06-09 15:01] LABS: Basophils Percent Auto 0.7 % (0-2); Eosinophils Absolute Auto 0.1 X10*3/uL (0.0-0.4); Eosinophils Percent Auto 1.8 % (0-4); Hemoglobin 12.6 g/dl (12.0-16.0); Imm Gran Abs Auto 0.02 X10*3/uL (0.00-0.03); Imm Gran Pct Auto 0.4 % (0.0-0.4); Lymphocytes Absolute Auto 2.1 X10*3/uL (1.2-4.9); Lymphocytes Percent Auto 37.7 % (20-40); Mean Corpuscular HGB Conc 34.1 g/dl (31.0-35.0); Mean Corpuscular Hemoglobin 37.3 pg (27.0-33.0); Mean Corpuscular Volume 109.5 fL (80.0-98.0); Mean Platelet Volume 11.1 fL (9.4-12.3); Monocytes Absolute Auto 0.8 X10*3/uL (0.1-1.2); Monocytes Percent Auto 14.5 % (2-11); NRBC Pct Auto 0.4 /100WBC (0.0-0.2); Neutrophils Absolute Auto 2.5 x10*3/uL (2.0-8.3); Neutrophils Percent Auto 44.9 % (45-73); Platelet Count 243 X10*3/uL (160-400); Red Blood Count 3.38 X10*6/uL (4.20-5.50); White Blood Count 5.6 X10*3/uL (4.8-10.8)
[2024-06-09 15:50] LABS: Erythrocyte Sedimentation Rate 3 MM/HR (0-20)
[2024-06-09 15:55] LABS: Troponin-I High Sensitivity < 2.7 ng/L (<3.5-17.0)
[2024-06-09 16:08] LABS: Alanine Aminotransferase 24 U/L (0-31); Albumin Level 4.2 g/dL (3.5-5.0); Alkaline Phosphatase 55 U/L (39-117); Anion Gap 12 (12-20); Aspartate Amino Transferase 34 U/L (5-31); Bilirubin Total 0.3 mg/dL (0.0-1.0); Blood Urea Nitrogen 14 mg/dL (9-16); C Reactive Protein 0.12 mg/dL (< or = 0.50); Calcium 9.5 mg/dL (8.4-10.2); Carbon Dioxide 31 mmol/L (22-29); Chloride 105 mmol/L (96-108); Cholesterol 168 mg/dL (<200); Estimated Glomerular Filt Rate > 60; Glucose Fasting 84 mg/dL (60-99); HDL Cholesterol 81 mg/dL (>40); LDL Cholesterol Calculated 43 mg/dL (<100); Magnesium 1.7 mg/dL (1.6-2.6); Potassium 5.1 mmol/L (3.3-5.1); Sodium 143 mmol/L (135-145); Total Protein 6.8 g/dL (6.5-8.0); Triglycerides 220 mg/dL (<150)
[2024-06-09 16:21] LABS: Folate > 20.0 ng/mL (> or = 4.0); Vitamin B12 699 pg/mL (200-900)
[2024-06-09 16:25] LABS: Free T4 (Free Thyroxine) 0.89 ng/dL (0.71-1.85); Vitamin D 25-OH Total 44.7 ng/mL (>30)
== END 2024-06-09 13:19 | disposition home or self-care (01) ==
LOC: HO.LAB 13:18
PROVIDERS: PCP Internal Medicine; Visit Provider Internal Medicine
DX: R07.9 Chest pain, unspecified (principal); D64.9 Anemia, unspecified; E78.00 Pure hypercholesterolemia, unspecified; E03.9 Hypothyroidism, unspecified; E55.9 Vitamin D deficiency, unspecified; E53.8 Deficiency of other specified B group vitamins; M79.7 Fibromyalgia
CPT/HCPCS: 36415; 80053; 80061; 82306; 82607; 82746; 83735; 84439; 84443; 84484; 85025; 85652; 86140

== ENCOUNTER 2024-06-13 11:22 | Outpatient (REF) | payer OTHER, SELFPAY | END 2024-06-13 11:23 | disposition home or self-care (01) | LOC: HO.MAMMO 11:22 | PROVIDERS: PCP Internal Medicine; Visit Provider Internal Medicine | DX: Z12.31 Encounter for screening mammogram for malignant neoplasm of breast (principal) | CPT/HCPCS: 77063; 77067 ==

== ENCOUNTER → 2024-06-13 11:30 | Outpatient (BNV) | payer OTHER, SELFPAY | PROVIDERS: PCP Internal Medicine; Visit Provider Radiology Diagnostic Radiology | DX: Z12.31 Encounter for screening mammogram for malignant neoplasm of breast (principal) | CPT/HCPCS: 77063; 77067 ==

== ENCOUNTER 2024-07-04 15:39 | Outpatient (AMB) | payer OTHER, SELFPAY ==
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
[2024-07-04 16:19] VITALS: BP 120/70; PULSE 82; O2SAT 95; BMI 22.5
== END 2024-07-04 16:49 | disposition home or self-care (01) ==
PROVIDERS: PCP Internal Medicine; Visit Provider Internal Medicine
DX: Z00.00 Encounter for general adult medical examination without abnormal findings (principal); R42 Dizziness and giddiness; M54.50 Low back pain, unspecified; G89.29 Other chronic pain; M25.50 Pain in unspecified joint; R20.2 Paresthesia of skin; I65.22 Occlusion and stenosis of left carotid artery; E78.2 Mixed hyperlipidemia; E03.9 Hypothyroidism, unspecified; Z86.711 Personal history of pulmonary embolism; Z85.71 Personal history of Hodgkin lymphoma; R79.89 Other specified abnormal findings of blood chemistry; K22.0 Achalasia of cardia; E83.42 Hypomagnesemia; E55.9 Vitamin D deficiency, unspecified; G47.00 Insomnia, unspecified
CPT/HCPCS: 99396

== ENCOUNTER 2024-11-23 13:13 | Outpatient (REF) | payer OTHER, SELFPAY ==
--- NOTE | ~2024-11-23 | MM_ITS ---
EXAMINATION: BONE DENSITOMETRY CLINICAL INDICATION: Asymptomatic menopausal state. COMPARISON: This is the patient's baseline examination. TECHNIQUE: Using a [employer] DXA System (software version: 13.1) manufactured by [employer], dual-energy x-ray absorptiometry was performed of the lumbar spine and right hip. The images are of good technical quality. Summary results are attached. FINDINGS: RIGHT FEMUR, NECK: BMD 0.925 g/cm2, Z-score 0.8, T-score -0.8, normal. RIGHT FEMUR, TOTAL: BMD 0.976 g/cm2, Z-score 1.1, T-score -0.2, normal. AP SPINE L1-L4: BMD 1.161 g/cm2, Z-score 1.7, T-score -0.2, normal. IDENTIFIED RISK FACTORS: Alcohol (3 or more units per day), height loss, menopause, secondary osteoporosis, (hyperthyroidism), tobacco user (current smoker). HISTORY OF FRACTURE: None listed. MEDICATIONS: None listed. MM/XR DEXA axial skeleton IMPRESSION: 1. DIAGNOSIS: Normal bone density based on the lowest T-score value of -0.8 in the femoral neck applying World Health Organization criteria. 2. 10-YEAR FRACTURE RISK PREDICTION, FRAX: According to the guidelines, FRAX calculation should only be performed on patients in the osteopenia bone density category. Therefore, FRAX was not performed on this patient. 3. Treatment Recommendations: NOF guidelines recommend consideration for treatment in postmenopausal women and men age 50 and older presenting with the following: -A hip or vertebral (clinical or morphometric) fracture. -T-score less than or equal to -2.5 at the femoral neck or spine after appropriate evaluation to exclude secondary causes. -Low bone mass at the hip or spine and a 10-year fracture probability by FRAX of greater than or equal to 3% for hip fracture or greater than or equal to 20% for major osteoporotic fracture based on the [place] adapted WHO algorithm. 4. Other Recommendations: All treatment decisions require clinical judgment and consideration of individual patient factors, including patient preferences, comorbidities, previous drug use, risk factors not captured in the FRAX model (e.g. frailty, falls, vitamin D deficiency, increased bone turnover, interval significant decline in bone density) and possible under or overestimation of fracture risk by FRAX. FUTURE SCAN RECOMMENDATION: People with diagnosed cases of osteoporosis or at high risk for fracture should have regular bone mineral density tests. For patients eligible for Medicare, routine testing is allowed once every 2 years. The testing frequency can be increased to one year for patients who have rapidly progressing disease, those who are receiving or discontinuing medical therapy to restore bone mass, or have additional risk factors. Electronically signed by: Dandy Alonso MD 11/23/2024 02:00 PM ERIN SMITH
== END 2024-11-23 13:14 | disposition home or self-care (01) ==
LOC: HO.MAMMO 13:13
PROVIDERS: PCP Internal Medicine; Visit Provider Internal Medicine
DX: Z13.820 Encounter for screening for osteoporosis (principal); Z78.0 Asymptomatic menopausal state
CPT/HCPCS: 77080

== ENCOUNTER 2025-03-28 13:17 | Outpatient (REF) | payer OTHER, SELFPAY ==
[2025-03-28 14:43] LABS: Alanine Aminotransferase 27 U/L (0-31); Albumin Level 4.3 g/dL (3.5-5.0); Alkaline Phosphatase 48 U/L (39-117); Anion Gap 16 (12-20); Aspartate Amino Transferase 41 U/L (5-31); Bilirubin Total 0.5 mg/dL (0.0-1.0); Blood Urea Nitrogen 11 mg/dL (9-16); Calcium 9.4 mg/dL (8.4-10.2); Carbon Dioxide 30 mmol/L (22-29); Chloride 104 mmol/L (96-108); Cholesterol 196 mg/dL (<200); Estimated Glomerular Filt Rate > 60; Glucose Fasting 96 mg/dL (60-99); HDL Cholesterol 108 mg/dL (>40); LDL Cholesterol Calculated 53 mg/dL (<100); Potassium 4.4 mmol/L (3.3-5.1); Sodium 146 mmol/L (135-145); Triglycerides 178 mg/dL (<150)
[2025-03-28 15:03] LABS: Free T4 (Free Thyroxine) 0.95 ng/dL (0.71-1.85); Thyroid Stimulating Hormone 0.66 uIU/mL (0.32-4.0)
== END 2025-03-28 13:18 | disposition home or self-care (01) ==
LOC: HO.LAB 13:17
PROVIDERS: PCP Internal Medicine; Visit Provider Internal Medicine
DX: E03.9 Hypothyroidism, unspecified (principal); E78.00 Pure hypercholesterolemia, unspecified
CPT/HCPCS: 36415; 80053; 80061; 84439; 84443

== ENCOUNTER 2025-03-30 14:00 | Outpatient (AMB) | payer OTHER, SELFPAY ==
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
[2025-03-30 14:07] VITALS: BP 122/70; PULSE 91; O2SAT 95; BMI 22.1
--- OUTSIDE RECORDS SUMMARY | 2025-03-30 14:17 | XMS_ITS | Patient Health Record ---
Author Organization [facility] Address [address] [place] [address] Care Team Providers Care Child Day Care Provider Name Role Phone Narda Vizcaino Primary Care Provider UnavailGuido Pereira Unavailable [phone] Allergies Allergen (clinical drug ingredient) Drug/Non Drug Allergy documented on EMR Reaction Allergy Type Onset Date Status bees, nickel (uncoded) Unknown Allergy Active Reason For Referral No Information Medications Medication SIG (Take, Route, Frequency, Duration) Notes Start Date End Date Status Benzonatate 100 MG 1 capsule as needed Orally Three times a day Active Vitamin B 12 500 MCG 1 tablet Orally Onc e a day for 30 day(s) Active Levothyroxine Sodium 75mcg Active Aspir-81 81mg once a day Activ e Folic Acid 800 MCG 1 tablet Orally twic e a day Active traZODone HCl 100 MG 1-2 tablets Orally Once a day Active Vitamin D3 25 MCG (1000 UT) 1 capsule Orally Once a day for 30 day(s) Active Melatonin Active Fenofibrate 160mg 1 tablet Orally Once a day Active Omeprazole 20 MG TAKE 1 CAPSULE BY MOUTH EVERY DAY for 30 Not-Takin g Metoprolol Succinate ER 50 MG 1 tablet Orally Once a day for 30 day(s) Not-Taking Ondansetron 4 MG 1 Orally Every 6 nolan rs prn nausea for 30 day(s) 07/29/2022 Not-Taking Immunizations Vaccine Route Administration Date Status Comme nts Influenza Unknown 02/28/2020 Administered Influenza Unknown 09/18/2020 Administered Influenza Unknown 10/22/2021 Administered Social History Tobacco Use: Social History Observation Description Date Details (start date - stop date) Current Smoker NA - NA Tobacco Use/Smoking Question Answer Notes Patient is a current smoker How often do you smoke cigarettes? every day How many cigarettes a day do you smoke? 6-10 How soon after you wake up d o you smoke your first cigarette? 6-30 minutes Are you interested in quitting? Thinking about q uitting Alcohol Screen Question Answer Notes Did you have a drink contain ing alcohol in the past year? Yes How often did you have a dri nk containing alcohol in the past year? 4 or more times a week (4 points) How many drinks did you have on a typical day when you were drinking in the past year? 1 or 2 drinks (0 point) How often did you have 6 or more drinks on one occasion in the past year? Never (0 point) Points 4 Interpretation Positive Section Notes: Smoker; few drinks daily Smoker; significant alcohol use daily Smoker; few drinks daily Smoker; significant alcohol use daily Smoker; significant alcohol use daily--currently using 1 gallon of vodka per week(down from 1 1/2 gallons per week) Smoker; significant alcohol use daily--previously using 1 gallon of vodka per week(down from 1 1/2 gallons per week). As of the 10/29/20 OV 1 drink on weekdays and heavier on the weekends Smoker; significant alcohol use daily--previously using 1 gallon of vodka per week(down from 1 1/2 gallons per week). As of the 10/29/20 OV 1 drink on weekdays and heavier on the weekends Smoker; significant alcohol use daily--previously using 1 gallon of vodka per week(down from 1 1/2 gallons per week). As of the 10/29/20 OV 1 drink on weekdays and heavier on the weekends Smoker; significant alcohol use daily--previously using 1 gallon of vodka per week(down from 1 1/2 gallons per week). As of the 10/29/20 OV 1 drink on weekdays and heavier on the weekends Problems Problem Type SNOMED Code ICD Code Onset Dates Problem Status W/U Status Risk Notes Problem Diarrhea (63411854) Diarrhea (R19.7) Active con firmed Problem Weight loss (133952761) Weight loss (R63.4) Active confirmed Problem Celiac disease (899955372) Celiac disease (K90.0) Active confirmed Problem Nausea (747140400) Nausea (R11.0) Active confir med Problem Anorexia (28934800) Anorexia (R63.0) Active con firmed Problem 90658372 Rectal pain (K62.89) Active confirmed Problem Vitamin B12 deficiency (non anemic) (70318003) B12 deficiency (E53.8) Active confirmed Problem Achalasia (71460402) Achalasia (K22.0) Active confirmed Problem Gastroesophageal reflux disease (579038618) GERD (gastroesophageal reflux disease) (K21.9) Active confirmed Problem Clostridium difficile diarrhea (5323685199784) Clostridium difficile diarrhea (A04.72) Active confirmed Problem 883452268 Gastroesophageal reflux disease, unspecified whether esophagitis present (K21.9) Active confirmed Plan Of Treatment Pending Test Test Name Order Date CHEM 7 PROFILE 03/12/2021 LIVER PROFILE 10/29/2020 IRON + IBC (FE) 10/29/2020 FERRITIN 10/29/2020 CRP 10/29/2020 VITAMIN B12 AND FOLATE 10/29/2020 CBC w DIFF 03/12/2021 CBC w DIFF 10/29/2020 SED RATE (ESR) 10/29/2020 PROTHROMBIN TIME (PT, INR) 10/29/2020 STOOL WBC 10/29/2020 CELIAC PANEL #10 03/12/2021 INTRINSIC FACTOR ANTIBODIES 10/30/2020 PARIETAL CELL ANTIBODY 10/30/2020 XR BARIUM SWALLOW-ESOPHAGUS 08/25/2013 TSH REFLEX FREE T4 10/29/2020 C DIFFICILE RFLX PCR 10/29/2020 Future Test Test Name Order Date UPPER GI ENDOSCOPY BALLOOON DILATION OF ESOPH 07/13/2013 UPPER GI ENDOSCOPY 10/29/2020 COLONOSCOPY 10/29/2020 Insurance Providers Payer Name Payer Address Payer Phone Subscriber Number Group Number Insured Name Patient Relationship to Insured Coverage Start Date Coverage End Date [facility] [address] [facility] [place], [place] [phone] [id number] SULTANA TANNER Self - patient is the insured Medications Administered Medication Instructions Date of Administration Dosage Notes B12 11/21/2020 1000 ug B-12 11/28/2020 1000 ug B-12 12/13/2020 1000 ug B-12 01/24/2021 1000 ug B-12 03/12/2021 1000 ug Medical (General) History Medical History History ICD Code 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 Rangel in 2011 Colonoscopy in 04/2013-hyperp lastic polyp removed-also mild diverticulosis and small internal hemorrhoids Avascular necrosis of the left hip treat ed with a core decompression in 1997 Achalasia--she had an upper endoscopy in July of 2013 which revealed a minimal hiatal hernia, no evidence of any esophageal ring nor stricture, no evidence of any reflux esophagitis nor eosinophilic esophagitis--the gastroesophageal junction was dilated with an 18 mm balloon but without much clinical effect--diagnosed achalasia in 09/2013 by motility study-previous Barium swallow was c/w that as well, showing ineffective peristalsis and delayed passage of the barium tablet beyond the gastroesophageal junction. She had a POEM procedure in [address] Granado Pulmonary embolism 2018 C-diff in summer 2019--saw [facility]-treated with 2 rounds of antibiotics and Cdiff was negative in 07/2020 B12 deficiency 03/2020 EGD-01/2021-hiatal hernia, no esophagitis nor Carney's; mild gastritis with gastric biopsies neg for H.pylori; duodenal biospies suspicious for celiac disease but not definitive(Celiac disease labs were negative) Colonoscopy 01/2021--neg for polyps, IBD, and microscopic colitis SVT-describes a negative cardiac cath at [facility] in 2021 Neg. abd U/S in 11/2021 Surgical History Surgery Date(Month/Year) Hodgkin's disease with splenectomy in Avascular necrosis of the le ft hip treated with a core decompression in 1997, and a left hip replacement in 2000 and 2005 Hemorrhoids Umbilical hernia-Dr. Reardon Left rotator cuff surgery
--- OUTSIDE RECORDS SUMMARY | 2025-03-30 14:17 | XMS_ITS ---
Author Organization [facility] Address [address] [place] [address] Care Team Providers Care Gum Machine Operator Name Role Phone Narda Vizcaino Primary Care Provider Guido Lowe Unavailable [phone] Allergies Allergen (clinical drug ingredient) Drug/Non Drug Allergy documented on EMR Reaction Allergy Type Onset Date Status bees, nickel (uncoded) Unknown Allergy Active Medications Medication SIG (Take, Route, Frequency, Duration) Notes Start Date End Date Status Vitamin D3 25 MCG (1000 UT) 1 capsule Orally Once a day for 30 day(s) Active Melatonin Active Omeprazole 20 MG TAKE 1 CAPSULE BY MOUTH EVERY DAY for 30 Not-Takin g Ondansetron 4 MG 1 Orally Every 6 nolan rs prn nausea for 30 day(s) 07/29/2022 Not-Taking Levothyroxine Sodium 75mcg Active Aspir-81 81mg once a day Activ e traZODone HCl 100 MG 1-2 tablets Orally Once a day Active Fenofibrate 160mg 1 tablet Orally Once a day Active Benzonatate 100 MG 1 capsule as needed Orally Three times a day Active Vitamin B 12 500 MCG 1 tablet Orally Onc e a day for 30 day(s) Active Folic Acid 800 MCG 1 tablet Orally twic e a day Active Metoprolol Succinate ER 50 MG 1 tablet Orally Once a day for 30 day(s) Not-Taking Social History Tobacco Use: Social History Observation [...] Points 4 Interpretation Positive Section Notes: Smoker; significant alcohol use daily--previously using 1 gallon of vodka per week(down from 1 1/2 gallons per week). As of the 10/29/20 OV 1 drink on weekdays and heavier on the weekends Problems Problem Type SNOMED Code ICD Code Onset Dates Problem Status W/U Status Risk Notes Problem 52915149 Rectal pain (K62.89) Active confirmed Problem 276810885 Gastroesophageal reflux disease, unspecified whether esophagitis present (K21.9) Active confirmed Vital Signs Temperature 98.4 degrees Fahrenheit 10/05/20 23 Blood pressure systolic 00 mm Hg 10/05/20 23 Blood pressure diastolic 00 mm Hg 023 Height 62.5 in 10/05/2023 Weight 122 lbs 10/05/2023 BMI 21.96 kg/m2 10/05/2023 Encounters Encounter Location Date Provider Diagnosis [address] [place] [id number] 10/05/2023 Guido Cain Rectal pain K62.89 ; Gastroesophageal reflux disease, unspecified whether esophagitis present K21.9 and Achalasia K22.0 Assessments Encounter Date Diagnosis (ICD Code) Assessment Notes Treatment Notes Treatment Clinical Notes Section Notes 10/05/2023 Rectal pain (ICD-10 - K62.89) Use a Preparation H suppository every night for 1 week, and then as needed for rectal pain. See Dr. Reardon as needed if it persists Overall, Sultana appears well. Her current symptomatology in regard the to rectal pain seems most consistent with that of some internal hemorrhoidal or possible anal fissure discomfort. I did recommend that she try a some Preparation H suppositories on a nightly basis for one week and then p.r.n. thereafter. I advised her that if the pain and discomfort persist she should make an appointment to see Dr. Reardon again. I don't think a colonoscopy is presently required given the negative exam in 2020 and we did review that she should have that again in 2030 for further screening as long as things otherwise remain stable. I did recommend she continue to use some zegj-ksx-leiaxke H2 blockers or antacids as needed for heartburn. I don't think she needs to be on chronic PPI based on her history. I don't think a repeat endoscopy is required either. If things otherwise remain stable I advised Sultana to see me on a p.r.n. basis. She was comfortable with this plan. Thank you again for allowing me to participate in Sultana's care. I shall continue to keep you advised of her progress as needed. 10/05/2023 Gastroesophageal reflux disease, unspecified whether esophagitis present (ICD-10 - K21.9) Use some over the counter Pepcid or TUMS as needed for any heartburn Overall, Sultana appears well. Her current symptomatology in regard the to rectal pain seems most consistent with that of some internal hemorrhoidal or possible anal fissure discomfort. I did recommend that she try a some Preparation H suppositories on a nightly basis for one week and then p.r.n. thereafter. I advised her that if the pain and discomfort persist she should make an appointment to see Dr. Reardon again. I don't think a colonoscopy is presently required given the negative exam in 2020 and we did review that she should have that again in 2030 for further screening as long as things otherwise remain stable. I did recommend she continue to use some qxqw-agz-ssjwthj H2 blockers or antacids as needed for heartburn. I don't think she needs to be on chronic PPI based on her history. I don't think a repeat endoscopy is required either. If things otherwise remain stable I advised Sultana to see me on a p.r.n. basis. She was comfortable with this plan. Thank you again for allowing me to participate in Sultana's care. I shall continue to keep you advised of her progress as needed. 10/05/2023 Achalasia (ICD-10 - K22.0) Overall, Sultana appears well. Her current symptomatology in regard the to rectal pain seems most consistent with that of some internal hemorrhoidal or possible anal fissure discomfort. I did recommend that she try a some Preparation H suppositories on a nightly basis for one week and then p.r.n. thereafter. I advised her that if the pain and discomfort persist she should make an appointment to see Dr. Reardon again. I don't think a colonoscopy is presently required given the negative exam in 2020 and we did review that she should have that again in 2030 for further screening as long as things otherwise remain stable. I did recommend she continue to use some vqwc-mkw-ejsnvfi H2 blockers or antacids as needed for heartburn. I don't think she needs to be on chronic PPI based on her history. I don't think a repeat endoscopy is required either. If things otherwise remain stable I advised Sultana to see me on a p.r.n. basis. She was comfortable with this plan. Thank you again for allowing me to participate in Sultana's care. I shall continue to keep you advised of her progress as needed. Plan Of Treatment Treatment Notes Assessment Notes Rectal pain Use a Preparation H suppository every night for 1 week, and then as needed for rectal pain. See Dr. Reardon as needed if it persists Gastroesophageal reflux dise ase, unspecified whether esophagitis present Use some over the counter Pepcid or TUMS as needed for any heartburn Next Appt Details Follow Up: prn, Reason: Progress Notes * LORETTA TANNEROB:1960 (63 yo F)Acc No.[id number]:10/05/2023 Progress Notes Patient:?SULTANA TANNER Provider:?Guido Cain MD :1960???Age:63 Y???Sex:Female D ate:10/05/2023 Address:[address] [place] [address], [place], [id number] Pcp:RUPA Shane Subjective: * Chief Complaints: * ??? * HPI: ???incontinence:? I saw Sultana in followup today in regard to some rectal discomfort and intermittent heartburn. ?I last saw Sultana in June of 2022. She reports that she presently feels well but has been having some rectal burning and pain that has been refractory to Preparation H cream. She does have occasional diarrhea, but usually her bowel movements have been fairly regular. She has not noticed any signs of bleeding. She does not feel any external hemorrhoids when she cleans herself. She has been using the Preparation H cream fairly regularly but without any improvement in her symptoms. She has had previous hemorrhoid surgery with Dr. Reardon. ?She has been eating comfortably. She has not had a recurrence of her achalasia symptoms. She does have occasional heartburn for your which she usually takes an soae-lxj-dxetayb H2 sharonda or antacid with fairly good relief. She has not used omeprazole in a while. She denies any dysphagia, anorexia, early satiety, nausea, nor vomiting. She denies any significant abdominal pains, jaundice, nor unintentional weight loss. ?She does continue to smoke and still drinks a little bit . * ROS:?General/Constitutional:?Change in appetite?Decreased apetite.?Chills?denies.?Admits?Fatigue.?Ophthalmologic:?Patient denies? Negative..?ENT:?Patient denies?Negative..?Respiratory:?Patient denies?No coughing/hemoptysis..?Cardiovascular:?Patient denies? No chest pain/orthopnea..?Gastrointestinal:?Comments?See HPI for details.?Genitourinary:?Patient denies? No dysuria/hematuria..?Musculoskeletal:?Patient complaining of? Left hip pain.?Skin:?Patient denies?No rash/pruritus..?Neurologic:?Patient denies? No headaches/seizures..?Psychiatric:?Patient denies?Negative..? * Medical History:? * Surgical History:?Hodgkin's disease with splenectomy in 1990 Avascular necrosis of the left hip treated with a core decompression in 1997, and a left hip replacement in 2000 and 2005 Hemorrhoids Umbilical hernia-Dr. Reardon Left rotator cuff surgery * Hospitalization/Major Diagno stic Procedure:? * Family History:?Father: dece ased.?Mother: .? Her mother did have melanoma and her father had prostate cancer. No colorectal cancer nor IBD. * Social History:?Tobacco Use:?Tobacco Use/Smoking?Patient is a?current smoker,?How often do you smoke cigarettes??every day,?How many cigarettes a day do you smoke??6-10,?How soon after you wake up do you smoke your first cigarette??6-30 minutes,?Are you interested in quitting??Thinking about quitting.?Drugs/Alcohol:?Alcohol Screen?Did you have a drink containing alcohol in the past year??Yes,?How often did you have a drink containing alcohol in the past year??4 or more times a week (4 points),?How many drinks did you have on a typical day when you were drinking in the past year??1 or 2 drinks (0 point),?How often did you have 6 or more drinks on one occasion in the past year??Never (0 point),?Points?4,?Interpretation?Positive.?Miscellaneous:?Marital status: . 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 ???Smoker; significant alcohol use daily--previously using 1 gallon of vodka per week(down from 1 1/2 gallons per week). As of the 10/29/20 OV 1 drink on weekdays and heavier on the weekends. * Medications:?TakingBenzonata te 100 MG Capsule 1 capsule as needed Orally Three times a dayVitamin B 12 500 MCG Tablet 1 tablet Orally Once a dayFolic Acid 800 MCG Tablet 1 tablet Orally twice a daytraZODone HCl 100 MG Tablet 1-2 tablets Orally Once a dayLevothyroxine Sodium 75mcg Aspir-81 81mg once a dayFenofibrate 160mg 1 tablet Orally Once a dayVitamin D3 25 MCG (1000 UT) Capsule 1 capsule Orally Once a dayMelatonin Taking Benzonatate 100 MG Capsule 1 capsule as needed Orally Three times a dayTaking Vitamin B 12 500 MCG Tablet 1 tablet Orally Once a dayTaking Folic Acid 800 MCG Tablet 1 tablet Orally twice a dayTaking traZODone HCl 100 MG Tablet 1-2 tablets Orally Once a dayTaking Levothyroxine Sodium 75mcg Taking Aspir-81 81mg once a dayTaking Fenofibrate 160mg 1 tablet Orally Once a dayTaking Vitamin D3 25 MCG (1000 UT) Capsule 1 capsule Orally Once a dayTaking Melatonin Not-Taking/PRNMetoprolol Succinate ER 50 MG Tablet Extended Release 24 Hour 1 tablet Orally Once a dayOndansetron 4 MG Tablet Disintegrating 1 Orally Every 6 hours prn nauseaOmeprazole 20 MG Capsule Delayed Release TAKE 1 CAPSULE BY MOUTH EVERY DAY Not-Taking/PRN Metoprolol Succinate ER 50 MG Tablet Extended Release 24 Hour 1 tablet Orally Once a dayNot-Taking/PRN Ondansetron 4 MG Tablet Disintegrating 1 Orally Every 6 hours prn nauseaNot-Taking/PRN Omeprazole 20 MG Capsule Delayed Release TAKE 1 CAPSULE BY MOUTH EVERY DAY DiscontinuedbuPROPion HCl ER (XL) 150 MG Tablet Extended Release 24 Hour 1 tablet in the morning Orally Once a dayClaritin 10 MG Tablet 1 tablet Orally Once a day, Notes: PRNMedication List reviewed and reconciled with the patientDiscontinued buPROPion HCl ER (XL) 150 MG Tablet Extended Release 24 Hour 1 tablet in the morning Orally Once a dayDiscontinued Claritin 10 MG Tablet 1 tablet Orally Once a day, Notes: PRNMedication List reviewed and reconciled with the patient * Allergies:?bees, nickelyes[A llergies Verified] Objective: * Vitals:?Wt: 122 lbs, Ht: 62. 5 in, BMI:21.96 Index, BP: 00/00 mm Hg, Temp: 98.4. * Examination: ???General Examination: ?GENERAL APPEARANCE:?pleasant, well nourished, well developed, in no acute distress.?EYES:?sclera non-icteric.?ORAL CAVITY:?mucosa moist.?NECK/THYROID:?no cervical lymphadenopathy, neck supple.?SKIN:?nonjaundiced, no spider angiomata..?HEART:?S1, S2 normal.?LUNGS:?clear to auscultation bilaterally.?ABDOMEN:?normal bowel sounds, no guarding or rigidity, no hepatosplenomegaly, no masses palpable, soft, nontender, nondistended..?EXTREMITIES:?no edema.?NEUROLOGIC:?alert and oriented.? Assessment: * Assessment: 1.?Rectal pain - K62.89 (Maryann walls)?2.?Gastroesophageal reflux disease, unspecified whether esophagitis present - K21.9?3.?Achalasia - K22.0? Overall, Sultana appears well. Her current symptomatology in regard the to rectal pain seems most consistent with that of some internal hemorrhoidal or possible anal fissure discomfort. I did recommend that she try a some Preparation H suppositories on a nightly basis for one week and then p.r.n. thereafter. I advised her that if the pain and discomfort persist she should make an appointment to see Dr. Reardon again. I don't think a colonoscopy is presently required given the negative exam in 2020 and we did review that she should have that again in 2030 for further screening as long as things otherwise remain stable. I did recommend she continue to use some nklj-myv-tbxazli H2 blockers or antacids as needed for heartburn. I don't think she needs to be on chronic PPI based on her history. I don't think a repeat endoscopy is required either. If things otherwise remain stable I advised Sultana to see me on a p.r.n. basis. She was comfortable with this plan. Thank you again for allowing me to participate in Sultana's care. I shall continue to keep you advised of her progress as needed. Plan: * Treatment: 2.?Gastroesophageal reflux d isease, unspecified whether esophagitis present? Notes: Use some over the counter Pepcid or TUMS as needed for any heartburn.?? * Procedure Codes:?3017F COLOR ECTAL CA SCREEN DOC [id number] Pt scrn tbco and id as [id number] BP SCR NOT PRFRM REC REASON NOS * Follow Up:?prn * * Sign off status: Completed true * Provider:?Guido Cain MD Date:? 023 Generated for Alan willis/Rima/Paras on:?03/30/2025 02:16 PM EDT History and Physical Notes * HPI (History of Present Illness) Category Sub-Category Detail Notes Category Not es incontinence I saw Sultana in followup today in regard to some rectal discomfort and intermittent heartburn. I last saw Sultana in June of 2022. She reports that she presently feels well but has been having some rectal burning and pain that has been refractory to Preparation H cream. She does have occasional diarrhea, but usually her bowel movements have been fairly regular. She has not noticed any signs of bleeding. She does not feel any external hemorrhoids when she cleans herself. She has been using the Preparation H cream fairly regularly but without any improvement in her symptoms. She has had previous hemorrhoid surgery with Dr. Reardon. She has been eating comfortably. She has not had a recurrence of her achalasia symptoms. She does have occasional heartburn for your which she usually takes an lngn-dhc-ysyrdrd H2 sharonda or antacid with fairly good relief. She has not used omeprazole in a while. She denies any dysphagia, anorexia, early satiety, nausea, nor vomiting. She denies any significant abdominal pains, jaundice, nor unintentional weight loss. She does continue to smoke and still drinks a little bit . Examination Category Sub-Category Detail Notes Category Not es General Examination GENERAL APPEARANCE: pleasant , well nourished, well developed, in no acute distress EYES: sclera non-icteric NECK/THYROID: no cervical lymphade nopathy, neck supple HEART: S1, S2 normal LUNGS: clear to auscultatio n bilaterally ABDOMEN: normal bowel sounds, no guarding or rigidity, no hepatosplenomegaly, no masses palpable, soft, nontender, nondistended. NEUROLOGIC: alert and oriented SKIN: nonjaundiced, no spi rhina angiomata. EXTREMITIES: no edema ORAL CAVITY: mucosa moist
== END 2025-03-30 14:51 | disposition home or self-care (01) ==
LOC: HO.HMCH 14:01
PROVIDERS: PCP Internal Medicine; Visit Provider Internal Medicine
DX: E03.9 Hypothyroidism, unspecified (principal); I25.2 Old myocardial infarction; E78.2 Mixed hyperlipidemia; I65.22 Occlusion and stenosis of left carotid artery; J30.1 Allergic rhinitis due to pollen; R79.89 Other specified abnormal findings of blood chemistry; K64.9 Unspecified hemorrhoids; M47.816 Spondylosis without myelopathy or radiculopathy, lumbar region; M25.50 Pain in unspecified joint; R20.2 Paresthesia of skin; Z86.711 Personal history of pulmonary embolism

== ENCOUNTER → 2025-03-30 14:00 | Outpatient (BNVA) | payer OTHER, SELFPAY | PROVIDERS: PCP Internal Medicine; Visit Provider Internal Medicine | DX: E78.2 Mixed hyperlipidemia (principal); E03.9 Hypothyroidism, unspecified; I65.22 Occlusion and stenosis of left carotid artery; J30.1 Allergic rhinitis due to pollen; R79.89 Other specified abnormal findings of blood chemistry; K64.9 Unspecified hemorrhoids; M47.816 Spondylosis without myelopathy or radiculopathy, lumbar region; M25.50 Pain in unspecified joint; R20.2 Paresthesia of skin; E83.42 Hypomagnesemia; E55.9 Vitamin D deficiency, unspecified; G47.00 Insomnia, unspecified; F33.0 Major depressive disorder, recurrent, mild; F17.200 Nicotine dependence, unspecified, uncomplicated; I25.2 Old myocardial infarction; Z86.711 Personal history of pulmonary embolism; Z85.71 Personal history of Hodgkin lymphoma; Z79.82 Long term (current) use of aspirin; Z79.899 Other long term (current) drug therapy | CPT/HCPCS: 96127 ==

== ENCOUNTER 2025-04-02 05:49 | Emergency (ER) | payer OTHER, SELFPAY ==
--- NOTE | 2025-04-02 06:09 | PC.NURSE ---
RN went into room to triage pt, pt not present in room, found attempting to leave ED states my arm really hurts I just want an xray . This RN and primary RN tried to explain to pt that we need to triage her then will order the xray, pt stated I need to go to work refused to stay.
--- OUTSIDE RECORDS SUMMARY | 2025-04-02 06:16 | XMS_ITS ---
Author Organization [facility] Address [address] [place] [address] Care Team Providers Care Molded Goods Controls Operator Name Role Phone Narda Vizcaino Primary Care Provider Guido Lowe Unavailable [phone] Allergies Allergen (clinical drug ingredient) Drug/Non Drug [...] Problem Status W/U Status Risk Notes Problem 54948473 Rectal pain (K62.89) Active confirmed Problem 807321377 Gastroesophageal reflux disease, unspecified whether esophagitis present (K21.9) Active confirmed Vital Signs Temperature 98.4 degrees Fahrenheit 10/05/20 23 Blood pressure systolic 00 mm Hg 10/05/20 23 Blood pressure diastolic 00 mm Hg 023 Height 62.5 in 10/05/2023 Weight 122 lbs 10/05/2023 BMI 21.96 kg/m2 10/05/2023 Encounters Encounter Location Date Provider Diagnosis [address] [place] [id number] 10/05/2023 Guido Cain Rectal pain K62.89 ; [...] did recommend she continue to use some gxlk-egr-wdupkbc H2 blockers or antacids as needed for [...] did recommend she continue to use some lxjs-jip-thphodv H2 blockers or antacids as needed for [...] did recommend she continue to use some ajhq-plv-cubezad H2 blockers or antacids as needed for [...] Notes * LORETTA TANNEROB:1960 (63 yo F)Acc No.[id number]:10/05/2023 Progress Notes Patient:?SULTANA TANNER Provider:?Guido Cain MD :1960???Age:63 Y???Sex:Female D ate:10/05/2023 Address:[address] [place] [address], [place], [place] Pcp:RUPA Shane Subjective: * Chief Complaints: * [...] for your which she usually takes an kals-oir-sexszvj H2 sharonda or antacid with fairly good [...] past year??Never (0 point),?Points?4,?Interpretation?Positive.?Miscellaneous:?Marital status: . 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 ???Smoker; significant alcohol use [...] did recommend she continue to use some kspq-duu-kvohjla H2 blockers or antacids as needed for [...] Procedure Codes:?3017F COLOR ECTAL CA SCREEN DOC [id number] Pt scrn tbco and id as [id number] BP SCR NOT PRFRM REC REASON NOS * Follow Up:?prn * * Sign off status: Completed true * Provider:?Guido Cain MD Date:? 023 Generated for Alan willis/Rima/Paras on:?04/02/2025 06:16 AM EDT History and Physical Notes * HPI [...] for your which she usually takes an uvmx-umu-woqjscn H2 sharonda or antacid with fairly good [...]
--- OUTSIDE RECORDS SUMMARY | 2025-04-02 06:16 | XMS_ITS | Continuity of Care Document ---
Author Organization [facility] Address [address] [place] [address] [address] [place] [address] Phone Care Team Providers Care Data Communications Software Consultant Name Role Phone Noah Juárez Unavailable Unavailable [...] Min Trial - [facility], [address] [place] [address] [address], [id number], [place] tel:[phone] CVR [facility] Localized edemaCramp and spasmRestless legs syndromeVenou s insufficiency (chronic) (peripheral)E ssential (primary) hypertension 4 Cornell Zamora. [address] [facility], [facility] [address], [place], [id number], [place]. tel:[phone] Referring Provider: John Hirsch MD, [address] [place] [address] [address], [place], [address]. tel:[phone] Offic Cons New/estab Mod 40 Mi [facility], [address] [place] [address] [address], [id number], [place] tel:[phone] [facility] Chronic venous hypertension (idiopathic) with other complications of bilateral lower extremityPain in right legPain in left legRestless legs syndromeEssen tial (primary) hypertensionV enous insufficiency (chronic) (peripheral)C ramp and spasmLocalize d edema 3 Yossi MART RVT, GODFREY Lora. [address] [facility], [place] [address], [facility] [place] [place], [id number], [place]. tel:[phone] Referring Provider: John Hirsch MD, [address] [place] [address] [address], [place], [address]. tel:[phone] [facility], [address] [facility] [address], [place], [id number], [place] tel:[phone] [facility] Chronic venous hypertension (idiopathic) with other complications of bilateral lower extremity 3 Yossi MART RVT, GODFREY Lora. [address] [place] [address], [place], [id number], [place]. tel:[phone] Referring Provider: John Hirsch MD, [address] [place] [address] Dr [address], [place], [address]. tel:[phone] Family History Family Member Type Diagnosis Age At Onset No Information Payers Payer name Insurance type Covered democrat ID Lima bermudez() [facility] [id number] Social History Type Description Quantity Date Captured [...] Status Goal Tobacco cessation counseling completed Goal Tobacco cessation counseling completed Goal Diet education completed Referral Ordered: Weight management: Referral to physician timeframe: 3 Months (related to Body mass index (BMI) 20.0-20.9, adult) ordered History Of Present Illness Encounter Date Complaint History Of Prese nt Illness No Information Functional Status Date Functional Assessmen t No Information Instructions Date Instruction Additional Infor salena Patient education booklet given Related to Localized edema Pre and post instruc tions reviewed and provided Related to Chronic venous hypertension (idiopathic) with other complications of bilateral lower extremity Patient education booklet given Related to Chronic venous hypertension (idiopathic) with other complications of bilateral lower extremity Lifestyle education Related to B bo mass index (BMI) 20.0-20.9, adult Giving Encouragement to exercise Related to Body mass index (BMI) 20.0-20.9, adult Diet education Related to Body mass index (BMI) 20.0-20.9, adult Assessments Type Assessment Date No Information Patient Care Teams Name Effective Dates (start - stop) Status Members No Information
--- OUTSIDE RECORDS SUMMARY | 2025-04-02 06:17 | XMS_ITS | Patient Health Record ---
Author Organization [facility] Address [address] [place] [address] Care Team Providers Care Remelter Name Role Phone Narda Vizcaino Primary Care Provider UnavailGuido Pereira Unavailable [phone] Allergies Allergen (clinical drug ingredient) Drug/Non Drug [...] Status W/U Status Risk Notes Problem Diarrhea (05301362) Diarrhea (R19.7) Active con firmed Problem Weight loss (455809233) Weight loss (R63.4) Active confirmed Problem Celiac disease (401199995) Celiac disease (K90.0) Active confirmed Problem Nausea (824169079) Nausea (R11.0) Active confir med Problem Anorexia (03876165) Anorexia (R63.0) Active con firmed Problem 19525490 Rectal pain (K62.89) Active confirmed Problem Vitamin B12 deficiency (non anemic) (52546446) B12 deficiency (E53.8) Active confirmed Problem Achalasia (25083911) Achalasia (K22.0) Active confirmed Problem Gastroesophageal reflux disease (730468928) GERD (gastroesophageal reflux disease) (K21.9) Active confirmed Problem Clostridium difficile diarrhea (7940037412202) Clostridium difficile diarrhea (A04.72) Active confirmed Problem 234369976 Gastroesophageal reflux disease, unspecified whether esophagitis present [...] Insured Coverage Start Date Coverage End Date [facility] [address] [facility] [place], [place] [phone] [id number] SULTANA TANNER Self - patient is the insured Medications Administered Medication Instructions Date of Administration Dosage Notes B12 11/21/2020 1000 ug B-12 11/28/2020 1000 ug B-12 12/13/2020 1000 ug B-12 01/24/2021 1000 ug B-12 03/12/2021 1000 ug Medical (General) History Medical History History ICD Code Hodgkin's disease in 1990-had a splenect anahi and chemotherapy Negative flex sig in 11/2000 Denies [place],DM,CVA,Lung disease,renal dise ase Chronic hip pain with [...] Pulmonary embolism 2018 C-diff in summer 2019--saw [facility] GI group-treated with 2 rounds of antibiotics and Cdiff was negative in 07/2020 B12 deficiency 03/2020 EGD-01/2021-hiatal hernia, no esophagitis nor Carney's; mild gastritis with gastric biopsies neg for H.pylori; duodenal biospies suspicious for celiac disease but not definitive(Celiac disease labs were negative) Colonoscopy 01/2021--neg for polyps, IBD, and microscopic colitis SVT-describes a negative cardiac cath at [facility] in 2021 Neg. abd U/S in 11/2021 Surgical History Surgery Date(Month/Year) Hodgkin's disease with splenectomy in Avascular necrosis of the le ft hip treated with a core decompression in 1997, and a left hip replacement in 2000 and 2005 Hemorrhoids Umbilical hernia-Dr. Reardon Left rotator cuff surgery
== END 2025-04-02 06:15 | disposition left against medical advice (07) ==
PROVIDERS: Emergency Provider Emergency Medicine; PCP Internal Medicine
DX: Z53.21 Procedure and treatment not carried out due to patient leaving prior to being seen by health care provider (principal)

== ENCOUNTER 2025-04-09 13:37 | Outpatient (AMB) | payer OTHER, SELFPAY ==
--- OUTSIDE RECORDS SUMMARY | 2025-04-09 13:59 | XMS_ITS | Continuity of Care Document ---
Author Organization [facility] Address [address] [place] [address] [address] [place] [address] Phone Care Team Providers Care Engine Turner Name Role Phone Noah Juárez Unavailable Unavailable [...] Min Trial - Telemedicine [facility], [address] [place] [address] [address], [id number], [place] tel:[phone] CVR [facility] Localized edemaCramp and spasmRestless legs syndromeVenou s insufficiency (chronic) (peripheral)E ssential (primary) hypertension 4 Cornell Zamora. [address] [facility], [facility] [address], [place], [id number], [place]. tel:[phone] Referring Provider: John Hirsch MD, [address] [place] [address] [address], [place], [address]. tel:[phone] Offic Cons New/estab Mod 40 Mi [facility], [address] [place] [address] [address], [id number], [place] tel:[phone] [facility] Chronic venous hypertension (idiopathic) with other complications of bilateral lower extremityPain in right legPain in left legRestless legs syndromeEssen tial (primary) hypertensionV enous insufficiency (chronic) (peripheral)C ramp and spasmLocalize d edema 3 Yossi MART RVT, GODFREY Lora. [address] [facility], [place] [address], [facility] [place], [id number], [place]. tel:[phone] Referring Provider: John Hirsch MD, [address] [place] [address] [address], [place], [address]. tel:[phone] [place], [address] [facility] [address], [place], [id number], [place] tel:[phone] [facility] Chronic venous hypertension (idiopathic) with other complications of bilateral lower extremity 3 Yossi MART RVT, GODFREY Lora. [address] [place] [address], [place], [id number], [place]. tel:[phone] Referring Provider: John Hirsch MD, [address] [place] [address] Dr [address], [place], [address]. tel:[phone] Family History Family Member Type Diagnosis Age At Onset No Information Payers Payer name Insurance type Covered constitution party ID Lima bermudez() [facility] [id number] Social History Type Description Quantity Date Captured [...]
--- OUTSIDE RECORDS SUMMARY | 2025-04-09 13:59 | XMS_ITS | Patient Health Record ---
Author Organization [facility] Address [address] [place] [address] Care Team Providers Care Ict Help Desk Technician Name Role Phone Narda Vizcaino Primary Care Provider UnavailGuido Pereira Unavailable [phone] Allergies Allergen (clinical drug ingredient) Drug/Non Drug [...] Status W/U Status Risk Notes Problem Diarrhea (30861428) Diarrhea (R19.7) Active con firmed Problem Weight loss (780512243) Weight loss (R63.4) Active confirmed Problem Celiac disease (616800511) Celiac disease (K90.0) Active confirmed Problem Nausea (090248493) Nausea (R11.0) Active confir med Problem Anorexia (10811445) Anorexia (R63.0) Active con firmed Problem 72016159 Rectal pain (K62.89) Active confirmed Problem Vitamin B12 deficiency (non anemic) (17988599) B12 deficiency (E53.8) Active confirmed Problem Achalasia (59846023) Achalasia (K22.0) Active confirmed Problem Gastroesophageal reflux disease (533676567) GERD (gastroesophageal reflux disease) (K21.9) Active confirmed Problem Clostridium difficile diarrhea (0095039309638) Clostridium difficile diarrhea (A04.72) Active confirmed Problem 197770666 Gastroesophageal reflux disease, unspecified whether esophagitis present (K21.9) Active confirmed Plan Of Treatment Pending Test Test Name Order Date CHEM 7 PROFILE 03/12/2021 LIVER PROFILE 10/29/2020 IRON + IBC (FE) 10/29/2020 FERRITIN 10/29/2020 CRP 10/29/2020 VITAMIN B12 AND FOLATE 10/29/2020 CBC w DIFF 10/29/2020 CBC w DIFF 03/12/2021 SED RATE (ESR) 10/29/2020 PROTHROMBIN TIME (PT, [...] Insured Coverage Start Date Coverage End Date [facility] [address] [facility] [place] [place] [phone] [id number] SULTANA TANNER Self - patient is the insured Medications Administered Medication Instructions Date of Administration Dosage Notes B12 11/21/2020 1000 ug B-12 11/28/2020 1000 ug B-12 12/13/2020 1000 ug B-12 01/24/2021 1000 ug B-12 03/12/2021 1000 ug Medical (General) History Medical History History ICD Code Hodgkin's disease in 1990-had a splenect anahi and chemotherapy Negative flex sig in 11/2000 Denies [place],DM,CVA,Lung disease,renal dise ase Chronic hip pain with [...] Pulmonary embolism 2018 C-diff in summer 2019--saw [facility] GI group-treated with 2 rounds of antibiotics and Cdiff was negative in 07/2020 B12 deficiency 03/2020 EGD-01/2021-hiatal hernia, no esophagitis nor Carney's; mild gastritis with gastric biopsies neg for H.pylori; duodenal biospies suspicious for celiac disease but not definitive(Celiac disease labs were negative) Colonoscopy 01/2021--neg for polyps, IBD, and microscopic colitis SVT-describes a negative cardiac cath at [facility] in 2021 Neg. abd U/S in 11/2021 Surgical History Surgery Date(Month/Year) Hodgkin's disease with splenectomy in Avascular necrosis of the le ft hip treated with a core decompression in 1997, and a left hip replacement in 2000 and 2005 Hemorrhoids Umbilical hernia-Dr. Reardon Left rotator cuff surgery
[2025-04-09 14:13] VITALS: BP 120/78; BMI 21.8
--- NOTE | 2025-04-09 14:13 | MHC.OFFVIS ---
Vital Signs 04/09/25 14:13 Height 5 ft 3 in Weight 123 lb BMI 21.8 BP 120/78 Blood Pressure Location Rt brachial Position Sitting Intake Visit Reasons: FINANCIAL ANALYST INTERN Annual/do not kaley x2 Valve Inspector Required: No Emt/Dispatcher: Emt/Dispatcher Present (JAQUELINE Shearer ) Allergies bee stings Allergy (Severe, Uncoded 04/02/25 06:17) anaphylaxis nickel Allergy (Intermediate, Uncoded 04/02/25 06:17) rash Medication List - Last Reconciled 04/09/25 by Janki Carter LPN aspirin 81 mg PO DAILY fluticasone propionate 50 mcg/actuation 2 sprays intranasal DAILY PRN 30 days folic acid 0.8 mg PO DAILY levothyroxine 75 mcg PO DAILY 90 days loratadine 10 mg PO DAILY PRN 90 days melatonin 10 mg PO BEDTIME metoprolol succinate ER 25 mg PO DAILY 90 days trazodone 250 mg (2.5 x 100 mg) PO BEDTIME PRN Is last menstrual period known: No Post menopausal: Yes Patient : No Do you need a note to return to daycare/school/sports/work: No HPI HPI FINANCIAL ANALYST INTERN Annual/do not kaley x2: Details: Patient is here for finish specialist annual exam she is not having any finish specialist concerns at all the last time she was sexually active was about 5 years ago she has no concerns about STIs and thinks she had an exam since then anyway. She is not sure when she had her actual last Pap smear she used to see Dr. Beck but he retired and her last finish specialist visit was about 2 or 3 years ago. She had Hodgkin's disease in her 20s. She also had surgery checking for everything inside and removing her spleen around that time she also had surgery to tighten the valve the top of her stomach to help with heartburn and it helped. She takes metoprolol for high blood pressure and levothyroxine and she was told that her cholesterol was a little high but it was the good cholesterol. 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 She is had mammograms and bone density scans and they are all fine. [facility] Medical History Allergic rhinitis Lumbar spondylosis Vitamin B12 deficiency Vitamin D deficiency Hypomagnesemia Smoker Insomnia Hx of Hodgkin's disease Hodgkin's disease Acquired hypothyroidism Mixed hyperlipidemia Stenosis of left internal carotid artery IBS (irritable bowel syndrome) Low vitamin B12 level Depression Hx of Hodgkin's disease Hx of non-ST elevation myocardial infarction (NSTEMI) Hypothyroid CAD (coronary artery disease) Hx of opioid abuse Anxiety Elevated cholesterol Hx pulmonary embolism Achalasia, esophageal Surgical History History of colonoscopy (~2012) History of rotator cuff surgery Hx of cardiac catheterization (~2021) Hx of hemorrhoidectomy (~07/2015) Hx of foot surgery Hx of umbilical hernia repair (~07/2015) History of arthroplasty of left hip Hx of splenectomy History of esophagogastroduodenoscopy (EGD) Social History Household Members: Significant Other Housing: House Do you presently have visiting nurse or other home services: No Alcohol intake: current Alcohol intake frequency: a few times a month Patient Tobacco Use Status: Current everyday Tobacco user Tobacco use type: Cigarette Cigarette Packs Per Day: 0.5 Cigarettes Per Day: 10 Years Smoked: 20 e-Cigarette/Vaping Use: Never Used Second Hand Smoke Exposure: Yes Substance Use Type: Opiates service: No Current occupational status: employed Cognitive needs: No Hearing needs: No Vision needs: Yes (reading glasses) Female Reproductive History Menstrual Menopause type: natural Age of menopause: 51 Total pregnancies: 1 Number of Living Children: 0 Ab induced: 1 Date of last pap smear: 03/30/23 History of abnormal pap smear: No History of STI: No Date of Mammogram: 06/13/24 History of abnormal mammogram: No Date of last Bone Density Screenin11/23/24 Physical Exam Vital Signs: Last Vital Signs BP 120/78 04/09/25 14:13 BMI result Body Mass Index 21.8 Const General: healthy appearing, comfortable, no acute distress, well developed and alert Nutritional Appearance: average body habitus Orientation/consciousness: patient oriented x3 Limitations: no limitations HEENT Head: Yes normocephalic Neck Neck: Yes normal visual inspection Chest Chest palpation & inspection: normal inspection of the chest Breast/axilla inspection: normal inspection of the breasts and normal inspection of the axillae Breast/axilla palpation: normal palpation of the breasts and normal palpation of the axillae Resp Effort & Inspection: normal respiratory effort GI Inspection: Yes normal to inspection, No Abdominal wall edema and No distended Palpation (GI): Soft to palpation and nontender Other: Postmenopausal changes evident vagina pink can moist cervix nulliparous pink smooth healthy appearing atrophic changes evident postmenopausal uterus small firm midposition mobile nontender adnexa nontender very good tone with Kegel. General: Yes bladder normal to palpation External Female Exam: normal external appearance and normal appearance of the urethra Speculum Exam - Vagina: normal appearance of the vagina, normal palpation and normal vaginal discharge Speculum Exam - Cervix: normal appearance of the cervix, normal palpation and nontender Bimanual exam- vagina & uterus: normal bimanual exam, normal palpation, uterine size normal, bladder normal to palpation, consistency normal, normal palpation, uterine mobility normal, uterine shape normal, No Cervical tenderness present, non-tender and no cervical motion tenderness Bimanual Exam- Adnexa, other: normal adnexae, no masses, normal and No adnexal tenderness Neuro General: patient oriented x3 Assessment & Plan Assessment & Plan (1) Cervical cancer screening: Code(s): Z12.4 - Encounter for screening for malignant neoplasm of cervix Category: Medical (2) Well woman exam with routine gynecological exam: Code(s): Z01.419 - Encounter for gynecological examination (general) (routine) without abnormal findings Category: Medical (3) Breast cancer screening: Code(s): Z12.39 - Encounter for other screening for malignant neoplasm of breast Category: Medical (4) Perimenopause: Code(s): N95.1 - Menopausal and female climacteric states Category: Medical Plan -----Discussed in this visit the following: healthy balanced diet, regular and consistent exercise, getting recommended health screens, doing the best she can for her particular health concerns, kegel exercises, pap smear screening and followup recommendations, mammography screening and SBE, normal changes in cycles in her life stage--- . Reviewed usual screening intervals for Pap smear screens. She does not recall ever having an abnormal 1 Pap smear done today. Reviewed that if this 1 is normal she may not need another 1 because then she would be over [address] Hirsch for her primary healthcare and is up-to-date on her mammograms and other studies as well she keeps physically active. RTC 1 year. Coding Level of Care Code New Pt Prev Care 40-64y(19036) Diagnoses Cervical cancer screening Z12.4 Well woman exam with routine gynecological exam Z01.419 Breast cancer screening Z12.39 Perimenopause N95.1
== END 2025-04-09 15:10 | disposition home or self-care (01) ==
LOC: HO.HWS 13:37
PROVIDERS: PCP Internal Medicine; Visit Provider Advanced Practice Midwife
DX: Z01.419 Encounter for gynecological examination (general) (routine) without abnormal findings (principal); N95.1 Menopausal and female climacteric states
CPT/HCPCS: 99386; 99459

== ENCOUNTER 2025-04-09 13:37 | Outpatient (REF) | payer OTHER, SELFPAY ==
--- OUTSIDE RECORDS SUMMARY | 2025-04-09 15:20 | XMS_ITS | Continuity of Care Document ---
Author Organization [facility] Address [address] [place] [address] [address] [place] [address] Phone Care Team Providers Care Lead Ruby On Rails Developer Name Role Phone Noah Juárez Unavailable Unavailable [...] Min Trial - Telemedicine [facility], [address] [place] [address] [address], [id number], [place] tel:[phone] [facility] [place] Localized edemaCramp and spasmRestless legs syndromeVenou s insufficiency (chronic) (peripheral)E ssential (primary) hypertension 4 Cornell Zamora. [address] [facility], [facility] [[email or web address]] [address], [place], [id number], [place]. tel:[phone] Referring Provider: John Hirsch MD, [address] [place] [address] [address], [place], [address]. tel:[phone] Offic Cons New/estab Mod 40 Mi [facility], [address] [place] [address] [address], [id number], [place] tel:[phone] [facility] Chronic venous hypertension (idiopathic) with other complications of bilateral lower extremityPain in right legPain in left legRestless legs syndromeEssen tial (primary) hypertensionV enous insufficiency (chronic) (peripheral)C ramp and spasmLocalize d edema 3 Yossi MART RVT, GODFREY Lora. [address] [facility], [place] [address], [facility] [place] [id number], [place]. tel:[phone] Referring Provider: John Hirsch MD, [address] [place] [address] [address], [place], [address]. tel:[phone] [facility], [address] [facility] [address], [place], [id number], [place] tel:[phone] [facility] Chronic venous hypertension (idiopathic) with other complications of bilateral lower extremity 3 Yossi MART RVT, GODFREY Lora. [address] [place] [address], [place], [id number], [place]. tel:[phone] Referring Provider: John Hirsch MD, [address] [place] [address] Dr [address], [place], [address]. tel:[phone] Family History Family Member Type Diagnosis Age At Onset No Information Payers Payer name Insurance type Covered libertarian ID [place] [email or web address]() [facility] [id number] Social History Type Description Quantity Date Captured [...]
[2025-04-12 13:56] LABS: HPV Genotype 16 Negative (Negative); HPV Genotype 18 Negative (Negative); HPV High Risk Negative (Negative)
== END 2025-04-09 13:38 | disposition home or self-care (01) ==
LOC: HO.LNP 13:37
PROVIDERS: PCP Internal Medicine; Visit Provider Advanced Practice Midwife
DX: Z12.4 Encounter for screening for malignant neoplasm of cervix (principal)
CPT/HCPCS: 87626; 88175

== ENCOUNTER 2025-08-06 13:33 | Outpatient (REF) | payer OTHER, SELFPAY ==
[2025-08-06 13:52] LABS: MANUAL DIFF FLAG NO
[2025-08-06 14:18] LABS: Hematocrit 39.5 % (37.0-47.0); Hemoglobin 13.8 g/dl (12.0-16.0); Imm Gran Abs Auto 0.04 X10*3/uL (0.00-0.03); Imm Gran Pct Auto 0.3 % (0.0-0.4); Lymphocytes Absolute Auto 2.5 X10*3/uL (1.2-4.9); Mean Corpuscular HGB Conc 34.9 g/dl (31.0-35.0); Mean Corpuscular Hemoglobin 36.8 pg (27.0-33.0); Mean Corpuscular Volume 105.3 fL (80.0-98.0); NRBC Abs Auto 0.030 X10*3/uL (0.0-0.012); NRBC Pct Auto 0.3 /100WBC (0.0-0.2); Platelet Count 197 X10*3/uL (160-400); Red Blood Count 3.75 X10*6/uL (4.20-5.50); White Blood Count 11.4 X10*3/uL (4.8-10.8)
[2025-08-06 14:22] LABS: Appearance Urine Cloudy; Glucose Urine UA Negative (Negative); PH 5.0 (5.0-9.0); Specific Gravity - Urine 1.020 (1.005-1.025); UMIC TRIGGER UACC YES
[2025-08-06 14:29] LABS: UACC Culture Trigger YES
[2025-08-06 15:23] LABS: Alanine Aminotransferase 21 U/L (0-31); Albumin Level 4.6 g/dL (3.5-5.0); Alkaline Phosphatase 54 U/L (39-117); Anion Gap 22 (12-20); Aspartate Amino Transferase 51 U/L (5-31); Blood Urea Nitrogen 17 mg/dL (9-16); Calcium 8.9 mg/dL (8.4-10.2); Carbon Dioxide 18 mmol/L (22-29); Chloride 105 mmol/L (96-108); Cholesterol 190 mg/dL (<200); Estimated Glomerular Filt Rate > 60; Free T4 (Free Thyroxine) 0.97 ng/dL (0.71-1.85); HDL Cholesterol 93 mg/dL (>40); Potassium 4.1 mmol/L (3.3-5.1); Sodium 141 mmol/L (135-145); Thyroid Stimulating Hormone 0.43 uIU/mL (0.32-4.0); Total Protein 7.2 g/dL (6.5-8.0); Triglycerides 282 mg/dL (<150)
--- OUTSIDE RECORDS SUMMARY | 2025-08-06 15:46 | XMS_ITS | Patient Health Record ---
Author Organization [facility] Address [address] [place] [address] Care Team Providers Care Senior Executive Assistant Name Role Phone Narda Vizcaino Primary Care Provider UnavailGuido Pereira Unavailable [phone] Allergies Allergen (clinical drug ingredient) Drug/Non Drug [...] Status W/U Status Risk Notes Problem Diarrhea (91667982) Diarrhea (R19.7) Active con firmed Problem Weight loss (431709436) Weight loss (R63.4) Active confirmed Problem Celiac disease (677989092) Celiac disease (K90.0) Active confirmed Problem Nausea (472070550) Nausea (R11.0) Active confir med Problem Anorexia (70891866) Anorexia (R63.0) Active con firmed Problem 20264350 Rectal pain (K62.89) Active confirmed Problem Vitamin B12 deficiency (non anemic) (95269738) B12 deficiency (E53.8) Active confirmed Problem Achalasia (32238959) Achalasia (K22.0) Active confirmed Problem Gastroesophageal reflux disease (021155588) GERD (gastroesophageal reflux disease) (K21.9) Active confirmed Problem Clostridium difficile diarrhea (0385963725189) Clostridium difficile diarrhea (A04.72) Active confirmed Problem 498547333 Gastroesophageal reflux disease, unspecified whether esophagitis present [...] Insured Coverage Start Date Coverage End Date [facility] [address] [employer] [facility] [place], [place] [id number] [phone] [id number] SULTANA TANNER Self - patient is the insured Medications Administered Medication Instructions Date of Administration Dosage Notes B12 11/21/2020 1000 ug B-12 11/28/2020 1000 ug B-12 12/13/2020 1000 ug B-12 01/24/2021 1000 ug B-12 03/12/2021 1000 ug Medical (General) History Medical History History ICD Code Hodgkin's disease in 1990-had a splenect anahi and chemotherapy Negative flex sig in 11/2000 Denies [place],DM,CVA,Lung disease,renal dise ase Chronic hip pain with [...] Pulmonary embolism 2018 C-diff in summer 2019--saw [facility] group-treated with 2 rounds of antibiotics and Cdiff was negative in 07/2020 B12 deficiency 03/2020 EGD-01/2021-hiatal hernia, no esophagitis nor Carney's; mild gastritis with gastric biopsies neg for H.pylori; duodenal biospies suspicious for celiac disease but not definitive(Celiac disease labs were negative) Colonoscopy 01/2021--neg for polyps, IBD, and microscopic colitis SVT-describes a negative cardiac cath at [facility] in 2021 Neg. abd U/S in 11/2021 Surgical History Surgery Date(Month/Year) Hodgkin's disease with splenectomy in Avascular necrosis of the le ft hip treated with a core decompression in 1997, and a left hip replacement in 2000 and 2005 Hemorrhoids Umbilical hernia-Dr. Reardon Left rotator cuff surgery
== END 2025-08-06 13:34 | disposition home or self-care (01) ==
LOC: HO.LAB 13:33
PROVIDERS: PCP Internal Medicine; Visit Provider Internal Medicine
DX: R30.0 Dysuria (principal); D64.9 Anemia, unspecified; E03.9 Hypothyroidism, unspecified; E78.00 Pure hypercholesterolemia, unspecified; E55.9 Vitamin D deficiency, unspecified
CPT/HCPCS: 36415; 80053; 80061; 81001; 82306; 84439; 84443; 85025; 87086; 87147

== ENCOUNTER 2025-08-06 14:08 | Emergency (ER) | payer OTHER, SELFPAY ==
--- NOTE | 2025-08-06 14:17 | ECG_ITS ---
Test Reason : RAPID HR Blood Pressure : */* mmHG Vent. Rate : 115 BPM Atrial Rate : 115 BPM P-R Int : 128 ms QRS Dur : 84 ms QT Int : 344 ms P-R-T Axes : 62 43 -1 degrees QTcB Int : 475 ms Sinus tachycardia Otherwise normal ECG When compared with ECG of 04-Dec-2021 22:41, T wave inversion no longer evident in Anterior leads Referred By: Stephanie Iqbal Electronically Signed By: KYM MEDINA MD
[2025-08-06 14:27] VITALS: BP 168/76; PULSE 114; RESP 16; TEMP 36.4; O2SAT 98; BMI 21.7
--- NOTE | 2025-08-06 14:28 | ED.GENADULT ---
HPI - General Adult General Chief complaint: Arrhythmia/Palpitations Stated complaint: rapid hr this am, severe headache. Time Seen by Provider: 08/06/25 17:04 Related Data Home Medications ?Medication ?Instructions ?Recorded ?Confirmed aspirin 81 mg tablet,delayed 81 mg PO DAILY 11/12/20 04/09/25 release folic acid 0.8 mg capsule 0.8 mg PO DAILY 11/12/20 04/09/25 melatonin 5 mg tablet 10 mg PO BEDTIME 11/12/20 04/09/25 Previous Rx's ?Medication ?Instructions ?Recorded metoprolol succinate 25 mg 25 mg PO DAILY 90 days #90 tabs 09/12/24 tablet,extended release 24 hr trazodone 100 mg tablet 250 mg (2.5 x 100 mg) PO BEDTIME 03/07/25 PRN for insomnia #225 tabs fluticasone propionate 50 2 spray intranasal DAILY PRN 03/30/25 mcg/actuation nasal allergy symptoms 30 days #16 grams spray,suspension loratadine 10 mg tablet 10 mg PO DAILY PRN allergy 03/30/25 symptoms 90 days #90 tabs levothyroxine 75 mcg tablet 75 mcg PO DAILY 90 days #90 tabs 06/02/25 Allergies Allergy/AdvReac Type Severity Reaction Status Date / Time bee stings Allergy Severe anaphylaxis Uncoded 08/06/25 14:30 nickel Allergy Intermediate rash Uncoded 08/06/25 14:30 PMFSH Past Medical History Medical History Allergic rhinitis Lumbar spondylosis Vitamin B12 deficiency Vitamin D deficiency Hypomagnesemia Smoker Insomnia Hx of Hodgkin's disease Hodgkin's disease Acquired hypothyroidism Mixed hyperlipidemia Stenosis of left internal carotid artery IBS (irritable bowel syndrome) Low vitamin B12 level Depression Hx of Hodgkin's disease Hx of non-ST elevation myocardial infarction (NSTEMI) Hypothyroid CAD (coronary artery disease) Hx of opioid abuse Anxiety Elevated cholesterol Hx pulmonary embolism Achalasia, esophageal Surgical History History of colonoscopy (~2012) History of rotator cuff surgery Hx of cardiac catheterization (~2021) Hx of hemorrhoidectomy (~07/2015) Hx of foot surgery Hx of umbilical hernia repair (~07/2015) History of arthroplasty of left hip Hx of splenectomy History of esophagogastroduodenoscopy (EGD) Social History Social History Household Members: Significant Other Housing: House Do you presently have visiting nurse or other home services: No Alcohol intake: current Alcohol intake frequency: a few times a month Patient Tobacco Use Status: Current everyday Tobacco user Tobacco use type: Cigarette Cigarette Packs Per Day: 0.5 Cigarettes Per Day: 10 Years Smoked: 20 e-Cigarette/Vaping Use: Never Used Second Hand Smoke Exposure: Yes Substance Use Type: Opiates Advance Directives: No Advance Directives Information Provided: Yes Do you have a plan to hurt others: No Plan service: No Current occupational status: employed Cognitive needs: No Hearing needs: No Vision needs: Yes (reading glasses) Physical Exam ED Vital Signs: Vital Signs - 24 hr 08/06/25 14:27 Temperature 97.6 F Pulse Rate 114 H Respiratory Rate 16 Blood Pressure 168/76 H Pulse Oximetry 98 Oxygen Delivery Method Room Air BMI result Body Mass Index 21.7 Course Course Course Narrative: Rapid medical examination performed in triage by Stephanie Iqbal PA-C. Patient is a 64 year old assigned female at presenting to the emergency department with a headache and an elevated heart rate. Detailed physical exam and review of systems are deferred to the business support liaison. EKG, labs, and swabs ordered. Patient placed back in the waiting room pending room availability and results. Patient left the department without completing treatment. Patient left the department before myself or any of the other emergency department clinicians could review her test results, perform a detailed physical exam, recommend further testing, or discuss a treatment plan. Patient's limited physical exam performed in triage showed a non toxic individual, walking independently with tachycardia and no shortness of breath / difficulty breathing. Medical Decision Making Lab Data 08/06/25 14:37 08/06/25 14:36 Labs: Lab Results 08/06/25 08/06/25 Range/Units 14:36 14:37 WBC 10.1 (4.8-10.8) X10*3/uL RBC 3.73 L (4.20-5.50) X10*6/uL Hgb 13.7 (12.0-16.0) g/dl Hct 38.9 (37.0-47.0) % MCV 104.3 H (80.0-98.0) fL MCH 36.7 H (27.0-33.0) pg MCHC 35.2 H (31.0-35.0) g/dl RDW 13.0 (11.0-16.0) % Plt Count 215 (160-400) X10*3/uL MPV 10.0 (9.4-12.3) fL Immature Gran % (Auto) 0.6 H (0.0-0.4) % Neut % (Auto) 65.4 (45-73) % Lymph % (Auto) 23.0 (20-40) % Warren % (Auto) 10.4 (2-11) % Eos % (Auto) 0.1 (0-4) % Baso % (Auto) 0.5 (0-2) % Lymph # (Auto) 2.3 (1.2-4.9) X10*3/uL Warren # (Auto) 1.1 (0.1-1.2) X10*3/uL Eos # (Auto) 0.0 (0.0-0.4) X10*3/uL Baso # (Auto) 0.1 (0.0-0.2) X10*3/uL Abs Immat Gran (auto) 0.06 H (0.00-0.03) X10*3/uL Absolute Neuts (auto) 6.6 (2.0-8.3) x10*3/uL Absolute Nucleated RBC 0.020 H (0.0-0.012) X10*3/uL Nucleated RBC % (auto) 0.2 (0.0-0.2) /100WBC PT 10.0 L (10.9-12.4) SEC INR 0.9 (0.9-1.1) Sodium 140 (135-145) mmol/L Potassium 4.2 (3.3-5.1) mmol/L Chloride 103 (96-108) mmol/L Carbon Dioxide 20 L (22-29) mmol/L Anion Gap 21 H (12-20) BUN 17 H (9-16) mg/dL Creatinine 0.64 (0.5-1.4) mg/dL Estim Creat Clear Calc 74.4 Estimated GFR > 60 Random Glucose 82 (60-115) mg/dL Calcium 8.9 (8.4-10.2) mg/dL Total Bilirubin 0.8 (0.0-1.0) mg/dL AST 51 H (5-31) U/L ALT 24 (0-31) U/L Alkaline Phosphatase 54 (39-117) U/L Troponin I High Sens 4.3 D (<3.5-17.0) ng/L Total Protein 7.4 (6.5-8.0) g/dL Albumin 4.6 (3.5-5.0) g/dL Discharge Plan Discharge Clinical Impression: Tachycardia Patient Disposition: Left W/O Completing Treatment Prescriptions: No Action metoprolol succinate 25 mg tablet extended release 24 hr 25 mg PO DAILY 90 Days Qty: 90 1RF trazodone 100 mg tablet 250 mg PO BEDTIME PRN (Reason: for insomnia) Qty: 225 0RF levothyroxine 75 mcg tablet 75 mcg PO DAILY 90 Days Qty: 90 1RF melatonin 5 mg Tablet 10 mg PO BEDTIME aspirin 81 mg Tablet,Delayed Release (Dr/Ec) 81 mg PO DAILY folic acid 0.8 mg Capsule 0.8 mg PO DAILY loratadine 10 mg tablet 10 mg PO DAILY PRN (Reason: allergy symptoms) 90 Days Qty: 90 3RF fluticasone propionate 50 mcg/actuation spray,suspension 2 spray intranasal DAILY PRN (Reason: allergy symptoms) 30 Days Qty: 16 5RF Rx Instructions: administer into each nostril
[2025-08-06 14:41] LABS: MANUAL DIFF FLAG NO
[2025-08-06 14:42] LABS: Hematocrit 38.9 % (37.0-47.0); Hemoglobin 13.7 g/dl (12.0-16.0); Imm Gran Abs Auto 0.06 X10*3/uL (0.00-0.03); Imm Gran Pct Auto 0.6 % (0.0-0.4); Lymphocytes Absolute Auto 2.3 X10*3/uL (1.2-4.9); Mean Corpuscular HGB Conc 35.2 g/dl (31.0-35.0); Mean Corpuscular Hemoglobin 36.7 pg (27.0-33.0); Mean Corpuscular Volume 104.3 fL (80.0-98.0); NRBC Abs Auto 0.020 X10*3/uL (0.0-0.012); NRBC Pct Auto 0.2 /100WBC (0.0-0.2); Platelet Count 215 X10*3/uL (160-400); Red Blood Count 3.73 X10*6/uL (4.20-5.50); White Blood Count 10.1 X10*3/uL (4.8-10.8)
[2025-08-06 14:52] LABS: INTERNATIONAL NORM RATIO 0.9 (0.9-1.1); Prothrombin Time 10.0 SEC (10.9-12.4)
[2025-08-06 14:58] LABS: Alanine Aminotransferase 24 U/L (0-31); Albumin Level 4.6 g/dL (3.5-5.0); Alkaline Phosphatase 54 U/L (39-117); Anion Gap 21 (12-20); Aspartate Amino Transferase 51 U/L (5-31); Blood Urea Nitrogen 17 mg/dL (9-16); Calcium 8.9 mg/dL (8.4-10.2); Carbon Dioxide 20 mmol/L (22-29); Chloride 103 mmol/L (96-108); Creatinine Clr Calc Pharmacy 74.4; Estimated Glomerular Filt Rate > 60; Potassium 4.2 mmol/L (3.3-5.1); Sodium 140 mmol/L (135-145); Total Protein 7.4 g/dL (6.5-8.0)
[2025-08-06 15:01] LABS: Troponin-I High Sensitivity 4.3 ng/L (<3.5-17.0)
== END 2025-08-06 19:37 | disposition left against medical advice (07) ==
PROVIDERS: Physician Assistant Medical; Emergency Provider Emergency Medicine; PCP Internal Medicine
DX: R00.0 Tachycardia, unspecified (principal); R51.9 Headache, unspecified; Z79.899 Other long term (current) drug therapy
CPT/HCPCS: 36415; 80053; 84484; 85025; 85610; 93005; 99283

== ENCOUNTER → 2025-08-06 14:17 | Outpatient (BNV) | payer OTHER, SELFPAY | PROVIDERS: PCP Internal Medicine; Visit Provider Internal Medicine Cardiovascular Disease | DX: R00.0 Tachycardia, unspecified (principal) | CPT/HCPCS: 93010 ==

== ENCOUNTER 2025-08-07 09:39 | Outpatient (REF) | payer OTHER, SELFPAY ==
--- NOTE | ~2025-08-07 | XR_ITS ---
EXAMINATION: XR CERVICAL SPINE CLINICAL INFORMATION: M54.2 - Cervicalgia COMPARISON: March 11, 2023. TECHNIQUE: AP and lateral and atlantoodontoid views. FINDINGS: Craniocervical junction is intact. Syndesmophyte formation and endplate sclerosis and decreased intervertebral disc height C5-6 and C6-7 level. Grade 1 anterolisthesis C4-5. No acute cortical disruption. No lytic or blastic lesions. Stenting in the soft tissues of the left neck. Calcified plaque in the soft tissues, right neck XR/XR cervical spine 3V IMPRESSION: Cervical spondylosis C4 C7 pronounced at C5-6 and C6-7. Grade 1 anterolisthesis, C4-5. Status post stenting, left ICA. Electronically signed by: Elton Fernando MD 08/07/2025 11:01 AM EDT
== END 2025-08-07 09:40 | disposition home or self-care (01) ==
LOC: HO.XRAY 09:39
PROVIDERS: PCP Internal Medicine; Visit Provider Internal Medicine
DX: M54.2 Cervicalgia (principal); I47.10 Supraventricular tachycardia, unspecified; I25.2 Old myocardial infarction; E78.2 Mixed hyperlipidemia; E03.9 Hypothyroidism, unspecified; I65.22 Occlusion and stenosis of left carotid artery; J30.1 Allergic rhinitis due to pollen; R79.89 Other specified abnormal findings of blood chemistry; M47.816 Spondylosis without myelopathy or radiculopathy, lumbar region; M25.50 Pain in unspecified joint; E83.42 Hypomagnesemia; E55.9 Vitamin D deficiency, unspecified; G47.00 Insomnia, unspecified; F33.0 Major depressive disorder, recurrent, mild; F17.210 Nicotine dependence, cigarettes, uncomplicated; Z79.82 Long term (current) use of aspirin; Z79.890 Hormone replacement therapy; Z79.899 Other long term (current) drug therapy; Z86.711 Personal history of pulmonary embolism; Z85.71 Personal history of Hodgkin lymphoma
CPT/HCPCS: 72040; 96127

== ENCOUNTER 2025-08-07 09:39 | Outpatient (AMB) | payer OTHER, SELFPAY ==
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
[2025-08-07 09:47] VITALS: BP 140/72; PULSE 99; O2SAT 94; BMI 22.1
--- OUTSIDE RECORDS SUMMARY | 2025-08-07 11:09 | XMS_ITS | Patient Health Record ---
Author Organization [facility] Address [address] [place] [address] Care Team Providers Care Galley Worker Name Role Phone Narda Vizcaino Primary Care Provider UnavailGuido Pereira Unavailable [phone] Allergies Allergen (clinical drug ingredient) Drug/Non Drug [...] Status W/U Status Risk Notes Problem Diarrhea (55039395) Diarrhea (R19.7) Active con firmed Problem Weight loss (317909223) Weight loss (R63.4) Active confirmed Problem Celiac disease (180778033) Celiac disease (K90.0) Active confirmed Problem Nausea (437824048) Nausea (R11.0) Active confir med Problem Anorexia (00663357) Anorexia (R63.0) Active con firmed Problem 39069963 Rectal pain (K62.89) Active confirmed Problem Vitamin B12 deficiency (non anemic) (09372791) B12 deficiency (E53.8) Active confirmed Problem Achalasia (50209210) Achalasia (K22.0) Active confirmed Problem Gastroesophageal reflux disease (940275508) GERD (gastroesophageal reflux disease) (K21.9) Active confirmed Problem Clostridium difficile diarrhea (3163164530848) Clostridium difficile diarrhea (A04.72) Active confirmed Problem 091433708 Gastroesophageal reflux disease, unspecified whether esophagitis present [...] Insured Coverage Start Date Coverage End Date [facility] [address] [facility] [place] [place] [phone] [id number] SULTANA TANNER Self - patient is the insured Medications Administered Medication Instructions Date of Administration Dosage Notes B12 11/21/2020 1000 ug B-12 11/28/2020 1000 ug B-12 12/13/2020 1000 ug B-12 01/24/2021 1000 ug B-12 03/12/2021 1000 ug Medical (General) History Medical History History ICD Code Hodgkin's disease in 1990-had a splenect anahi and chemotherapy Negative flex sig in 11/2000 Denies LA,DM,CVA,Lung disease,renal dise ase Chronic hip pain with [...] Pulmonary embolism 2018 C-diff in summer 2019--saw [facility]-treated with 2 rounds of antibiotics and Cdiff was negative in 07/2020 B12 deficiency 03/2020 EGD-01/2021-hiatal hernia, no esophagitis nor Carney's; mild gastritis with gastric biopsies neg for H.pylori; duodenal biospies suspicious for celiac disease but not definitive(Celiac disease labs were negative) Colonoscopy 01/2021--neg for polyps, IBD, and microscopic colitis SVT-describes a negative cardiac cath at [facility] in 2021 Neg. abd U/S in 11/2021 Surgical History Surgery Date(Month/Year) Hodgkin's disease with splenectomy in Avascular necrosis of the le ft hip treated with a core decompression in 1997, and a left hip replacement in 2000 and 2005 Hemorrhoids Umbilical hernia-Dr. Reardon Left rotator cuff surgery
== END 2025-08-07 10:35 | disposition home or self-care (01) ==
LOC: HO.HMCH 09:40
PROVIDERS: PCP Internal Medicine; Visit Provider Internal Medicine
DX: I47.10 Supraventricular tachycardia, unspecified (principal); I25.2 Old myocardial infarction; E78.2 Mixed hyperlipidemia; E03.9 Hypothyroidism, unspecified; I65.22 Occlusion and stenosis of left carotid artery; J30.1 Allergic rhinitis due to pollen; R79.89 Other specified abnormal findings of blood chemistry; M47.816 Spondylosis without myelopathy or radiculopathy, lumbar region; M54.2 Cervicalgia; M25.50 Pain in unspecified joint; Z86.711 Personal history of pulmonary embolism; Z85.71 Personal history of Hodgkin lymphoma; E83.42 Hypomagnesemia; E55.9 Vitamin D deficiency, unspecified; G47.00 Insomnia, unspecified; F33.0 Major depressive disorder, recurrent, mild; F17.200 Nicotine dependence, unspecified, uncomplicated

== ENCOUNTER → 2025-08-07 10:44 | Outpatient (BNV) | payer OTHER, SELFPAY | PROVIDERS: PCP Internal Medicine; Visit Provider Radiology Diagnostic Radiology | DX: M47.812 Spondylosis without myelopathy or radiculopathy, cervical region (principal) | CPT/HCPCS: 72040 ==

== ENCOUNTER → 2025-09-28 12:42 | Outpatient (REF) | payer OTHER, SELFPAY ==
--- OUTSIDE RECORDS SUMMARY | 2024-01-06 08:45 | XMS_ITS | Continuity of Care Document ---
Author Organization [facility] Address [address] [place] [address] [address] [place] [id number] Phone Care Team Providers Care Distillery Miller Name Role Phone Noah Juárez Unavailable Unavailable Procedures Procedure Date Offic/outpt E&m Estab 5 Min Trial - Tele medicine Offic Cons New/estab Mod 40 Mi Duplex Scan-extrem Veins; Comp Advance Directives Directive Yes / No Effective Date File Name No Information Encounters Encounter Description Practice Location Reason(s) For Visit Diagnoses Date Provider Providers Copied on Encounter Offic/outpt E&m Estab 5 Min Trial - [facility]medicine [facility], [address] [place] [address] [address], [id number], [place] tel:[phone] [facility] Localized edemaCramp and spasmRestless legs syndromeVenou s insufficiency (chronic) (peripheral)E ssential (primary) hypertension 4 Cornell Zamora. [address] [facility], [facility] [address], [place], [id number], [place]. tel:[phone] Referring Provider: John Hirsch MD, [address] [place] [address] [address], [place], [address]. tel:[phone] Offic Cons New/estab Mod 40 Mi [facility], [address] [place] [address] [address], [id number], [place] tel:[phone] [facility] Chronic venous hypertension (idiopathic) with other complications of bilateral lower extremityPain in right legPain in left legRestless legs syndromeEssen tial (primary) hypertensionV enous insufficiency (chronic) (peripheral)C ramp and spasmLocalize d edema 3 Yossi MART RVT, GODFREY Lora. [address] [facility], [place] [address], [facility] [place], [id number], [place]. tel:[phone] Referring Provider: John Hirsch MD, [address] [place] [address] [address], [place], [address]. tel:[phone] [facility], [address] [facility] [address], [place], [id number], [place] tel:[phone] [facility] Chronic venous hypertension (idiopathic) with other complications of bilateral lower extremity 3 Yossi MART RVT, GODFREY Lora. [address] [place] [address], [place], [id number], [place]. tel:[phone] Referring Provider: John Hirsch MD, [address] [place] [address] [address], [place], [address]. tel:[phone] Family History Family Member Type Diagnosis Age At Onset No Information Payers Payer name Insurance type Covered democrat ID [place] [email or web address]() [facility] [id number] Social History Type Description Quantity Date Captured Comments Alcohol Use Details Unknown Caffeine Use Details Unknown Tobacco Use Status Smoking Status Smoker, current stat us unknown Non-Smoking Tobacco Use Details : No Details Available : No Details Available Sex Female Vital Signs Date / Time: Height Weight BMI Pulse Rate Blood Pressure Temperature Respiratory Rate Body Surface Area Head Circumference Head Circ. Percentile Wt./Jey. Percentile BMI percentile Pulse Ox Inhaled Ox 52.160 kg (115.00 lbs) 20.4 0 kg/m eter (2) Chief Complaint And Reason For Visit No Information Reason For Referral Reason For Referral No Information Plan Of Treatment Date Type Action Status Goal Tobacco cessation counseling completed Goal Diet education completed Goal Tobacco cessation counseling completed Referral Ordered: Weight management: Referral to physician timeframe: 3 Months (related to Body mass index (BMI) 20.0-20.9, adult) ordered History Of Present Illness Encounter Date Complaint History Of Prese nt Illness No Information Functional Status Date Functional Assessmen t No Information Instructions Date Instruction Additional Infor salena Patient education booklet given Related to Localized edema Diet education Related to Body mass index (BMI) 20.0-20.9, adult Giving Encouragement to exercise Related to Body mass index (BMI) 20.0-20.9, adult Lifestyle education Related to B bo mass index (BMI) 20.0-20.9, adult Patient education booklet given Related to Chronic venous hypertension (idiopathic) with other complications of bilateral lower extremity Pre and post instruc tions reviewed and provided Related to Chronic venous hypertension (idiopathic) with other complications of bilateral lower extremity Assessments Type Assessment Date No Information Patient Care Teams Name Effective Dates (start - stop) Status Members No Information
--- NOTE | 2025-09-28 12:44 | CA_ITS ---
Transthoracic Echocardiogram Patient (Last, First, Middle): Angela Carranza, Gender: Female Date of : 1960 Age: 65 Procedure Date: 09/28/2025 Procedure Type: Transthoracic Echocardiogram Location: OP Height: 160.02 cm Weight: 56.7 kg BSA: 1.58 m2 Heart Rate: bpm BP: 128 / 76 mmHg Software Licensing Analyst: TO Referring MD: John Hirsch MD Symptoms: I47.10 - Supraventricular tachycardia, unspecified Study Quality: Adequate w contrast ECG Rhythm: Sinus Conclusions: - The left ventricular systolic function is normal. The calculated ejection fraction is 49% by biplane method. - The basal inferior segment is akinetic. - No obvious valvular pathology seen on this study. Findings Procedure Information Contrast agent, definity, is being given per protocol without apparent complications. Left Ventricle Normal left ventricular cavity size. There is normal left ventricular wall thickness. The left ventricular systolic function is normal. The calculated ejection fraction is 49% by biplane method. Diastolic function is normal for age. Wall Motion Rest Echo Findings The basal inferior segment is akinetic. Right Ventricle Normal right ventricular cavity size. There is mildly decreased right ventricular systolic function. Atria Both atria are normal in size. Aortic Valve There is a normal trileaflet aortic valve. There is no aortic valve stenosis. There is no aortic valve regurgitation. Mitral Valve The mitral valve appears normal. There is no mitral valve regurgitation. There is no mitral valve stenosis. Pulmonic Valve The pulmonic valve is likely normal. Tricuspid Valve There is trace tricuspid valve regurgitation. There is no evidence of pulmonary hypertension. Great Vessels The asc aorta is normal in size. Venous The inferior vena cava is normal in size and collapses greater than 50% with inspiration. Pericardium/Pleural There is no evidence of pericardial effusion. Prior Study Comparison No significant change compared to prior study dated: 12/05/2021. Recommendations, Care & Conclusions No obvious valvular pathology seen on this study. Measurements 2D Linear Measurements IVSd: 0.96 0.6-0.9/0.6-1.0 cm LVIDd: 4.81 3.9-5.3/4.2-5.9 cm LVIDd Index: 3.04 2.4-3.2/2.2-3.1 cm/m2 LVIDs: 3.82 2.0-3.6 cm LVPWd: 0.83 0.7-1.1 cm LA Diam: 2.90 2.7-3.8/3.0-4.0 cm LAIDs Index: 1.84 1.5-2.3 cm/m2 LV Mass: 183.40 67-162/88-224 g LV Mass Index: 116.07 43-95/49-115 g/m2 LVOT Diam: 2.20 3.0+(-)1.3 cm 2D Systolic Function EF 4C: 47.50 >55% EF 2C: 47.90 >55% EF BiP: 48.90 >55% Mitral Valve MV Pk E: 0.42 MV PK A: 0.60 MV Decel Time: 168.00 E/A: 0.70 E'Lateral: 5.33 E'Medial: 5.11 E/E' Med: 8.20 E/E' Lat: 7.90 PHT: 49.00 MVA PHT: 4.49 Decel [place]: 2.50 Aortic Valve AoV Pk Dorian: 0.85 AoV Mn Dorian: 0.60 AoV VTI: 0.19 AoV Pk Grad: 3.00 Aov Mn Grad: 2.00 ARASH Cont.VTI: 3.00 LVOT LVOT Pk Dorian: 0.69 LVOT Mn Dorian: 0.48 LVOT VTI: 0.15 LVOT Pk Grad: 2.00 LVOT Mn Grad: 1.00 LVOT Diam: 2.20 LVOT Area: 3.80 Diastolic Function MV Pk E: 0.42 MV Pk A: 0.60 E/A: 0.70 E'Medial: 5.11 E/E' Med: 8.20 E' Laterial: 5.33 E/E' Lat: 7.90 Right Ventricle TAPSE (mm): 22.30 TVS' Dorian: 9.79 Tricuspid Valve TR Pk Dorian: 1.65 TR Pk Grad: 11.00 RA Press: 3.00 RVSP: 14.00 Great Vessels Aorta Sinus of Valsalva: 3.38 2.0-3.5 cm Ao Asc: 3.20 2.1-3.4 cm Updated in Other Vendor System with Status of Final Nishant Cabrera MD electronically signed on 09/29/2025 1:10:57 PM with status of Final
== END ==
LOC: HO.CARD 12:42
PROVIDERS: PCP Internal Medicine; Visit Provider Internal Medicine
DX: I25.2 Old myocardial infarction (principal); I47.10 Supraventricular tachycardia, unspecified
CPT/HCPCS: 93306; Q9957

== ENCOUNTER → 2025-09-28 12:44 | Outpatient (BNV) | payer OTHER, SELFPAY | PROVIDERS: PCP Internal Medicine; Visit Provider Internal Medicine | DX: R94.31 Abnormal electrocardiogram [ECG] [EKG] (principal); I47.10 Supraventricular tachycardia, unspecified | CPT/HCPCS: 93306 ==